=== PATIENT | male | born 1955 | race Caucasian/White ===

== ENCOUNTER 2018-07-31 20:03 | Inpatient (IN) | payer OTHER ==
[2018-07-31] MEDS ORDERED: SODIUM CHLORIDE 0.9% 500 ML INFUS.BAG IV ONE (20:43)
--- NOTE | 2018-07-31 21:32 | PDOC ---
History of Present Illness - General Chief Complaint: Weakness Stated Complaint: LEG PAIN Time Seen by Provider: 07/31/18 20:21 History Source: Patient Exam Limitations: No Limitations - History of Present Illness Initial Comments: 07/31/18 20:44 63YOM with h/o CAD with WA and stent placement (one month ago at [facility]), ?h/o CHF, also h/o HTN, HLD, A-fib s/p ablation, who p/w 2 months of L>R calf pain significantly worse in the past 3 days, as well as 2 days of significant fatigue on exertion and now with left lateral bodily pain from his hip to his shoulder. He has had mild BLE swelling similar to prior episodes. EMS noted that his blood pressure was soft on the way to the ED. The patient himself denies any SOB, f/c/n/v/d/c, palpitations, back pain, neck pain, HALL, or other symptoms. He states he is compliant with all his medications except possibly his digoxin for the past two days. He takes Xarelto, Plavix, ASA, isosorbide, metoprolol, tamsulosin, finasteride, and digoxin among several other less concerning medications. Past History - Past Medical History Allergies/Adverse Reactions: Allergies Allergy/AdvReac Type Severity Reaction Status Date / Time Penicillins Allergy Verified 07/31/18 20:29 Cardiac Disorders: Yes COPD: No HTN: Yes - Surgical History Cardiac Surgery: Yes (Stent) - Suicide/Smoking/Psychosocial Hx Smoking History: Never smoked Have you smoked in the past 12 months: No Information on smoking cessation initiated: No Hx Alcohol Use: No Drug/Substance Use Hx: No Review of Systems - Review of Systems Able to Perform ROS?: Yes Comments:: 07/31/18 22:00 GEN: generalized weakness, no fever, chills, or malaise HEENT: no ear pain, sore throat, vision change, or eye pain CV: left chest pain discomfort, edema, no palpitations, lightheadedness, or syncope RESP: no cough, wheezing, or SOB GI: no abdominal pain, nausea, vomiting, diarrhea, constipation, or white/black/ bloody stool : no dysuria, hematuria, incontinence, retention, bleeding, or discharge MSK: left neck pain, left>right calf pain, no back pain or joint swelling/pain NEURO: no headache, seizure, vertigo, numbness, tingling, or focal weakness PSYCH: no substance use, no behavior change SKIN: no jaundice, no rash ROS otherwise negative except as noted in HPI *Physical Exam - Vital Signs Last Vital Signs Temp Pulse Resp BP Pulse Ox 99.1 F 50 L 27 H 84/49 L 100 07/31/18 20:33 07/31/18 20:33 07/31/18 20:33 07/31/18 20:33 07/31/18 20:33 - Physical Exam Comments: 07/31/18 22:21 GENERAL: a bit pale but nontoxic-appearing, A/Ox4, no distress, answers questions appropriately, appears tired HEENT: s bit dry mucous membranes, PERRLA, EOMI NECK/BACK: no midline ttp, no spinal stepoff or deformity, no hematoma, full ROM , neck supple CARDIOVASCULAR: distant heart sounds and bradycardic but regular rate/rhythm, normal S1S2, no MGR, strong peripheral pulses, capillary refill <2 seconds, extremities wwp, 1+ pitting edema BLE LUNGS/RESPIRATORY: no respiratory distress, CTAB GI/ABDOMEN: symmetric [id number], normoactive BS, soft, no ttp, no midline pulsatile masses : no CVA tenderness EXTREMITIES: no muscle atrophy, no acute deformity, no calf tenderness, no palpable cord, calves symmetric SKIN: pale, warm and dry, no pallor, no jaundice, no rash, no bruising, no skin breakdown, no cuts, no lesions NEUROLOGICAL: GCS 15, CN II-XII grossly intact, 5/5 strength proximally and distally, no facial droop Procedures - Bedside Ultrasound Remarks: EXAM: Bedside echo INDICATION: 1 mo s/p WA, chest pain, hypotension FINDINGS: severe LVH, no valve abnormality, no pericardial effusion CONCLUSION: severe LVH without tamponade physiology Heart Score/ECG Review - History History: Moderately suspicious - Electrocardiogram EKG: Significant ST-depression - Age Age: 45-65 - Risk Factors Risk Factors Heart Score: Yes Hx Hypercholesterolemia, Yes Hx Hypertension, Yes Positive family hx of cardiac disease Based on the list above the patient has:: >/=3 risk factors or Hx atherosclerotic disease #1 07/31/18 21:19 Sinus rhythm, rate 54, normal axis and slightly widened QRS but otherwise normal intervals, 1 box AVNI in aVR and <1 box AVNI in V1, STD in I, II, III, aVF , and [id number], TWI in aVL, +LVH pattern, no prior EKGs available for comparison ED Treatment Course - LABORATORY CBC & Chemistry Diagram: 07/31/18 21:45 07/31/18 21:45 - RADIOLOGY Radiology Studies Ordered: Category Date Time Status CHEST X-RAY PORTABLE* [RAD] Stat Radiology 07/31/18 20:43 Ordered Medical Decision Making - Medical Decision Making 63YOM with extensive CAD hx with WA&PCI a month ago p/w LLE>RLE calf pain, left trunk pain, low BP. Initial Vital Signs Temp Pulse Resp BP Pulse Ox 99.1 F 50 L 27 H 84/49 L 100 07/31/18 20:33 07/31/18 20:33 07/31/18 20:33 07/31/18 20:33 07/31/18 20:33 Repeat RR is 22 at the time of my examination. Repeat BP is 89/54 at the time of my examination. Exam: As noted in Physical Exam section. DDX IBNLT: ACS, ventricular aneurysm, pericarditis (i.e. Elan syndrome), tamponade, aortic dissection, septal rupture, papillary muscle rupture and MR and pulmonary edema, also with the calf pain this is likely claudication from PVD worsened by hypotension/soft pressures, less likely DVT although this is still a possibility. Very unlikely ventricular wall rupture as the patient would likely be much less stable than he is currently, unlikely AAA, PTX, PE ( not hypoxic), esophageal tear, esophagitis (e.g. pill, infectious), esophageal stricture, esophageal FB, gastritis, PUD, pancreatitis, cholecystitis, cholangitis, colitis, bowel perforation, PNA/bronchitis, pleurisy, pleuritis, MVP, pulmonary HTN, musculoskeletal, panic/anxiety, etc. W/U ordered: CBCD CMP Mg Phos Lipase Troponin CK CKMB Coags T&S Blood gas UA UCx EKG CXR. TX ordered: monitor, ASA 324, O2 via NC if needed, 500 cc NS as patient is hypotensive, no crackles or SOB. EKG: Reviewed; results as noted in ECG Review section. 07/31/18 21:39 I spoke with [facility] ED rep Coral, Pt had cath on 07/01/18, for NSTEMI, JAMILA placed successfully. Old EKG sent from [facility] (most recent 07/04/18) from 3 days after his successful PCI. 07/04/18 EKG shows 2-3 box AVNI in aVF, V1, and V2, marked STD in II and V456 also smaller STD in I, III, and V3. Interestingly the 07/04/18 EKG looks worse than today's EKG. CXR: Mild vascular congestion, enlarged cardiomediastinal silhouette, no focal consolidation Laboratory Tests 07/31/18 07/31/18 07/31/18 21:45 21:45 21:45 WBC 7.7 RBC 3.55 L Hgb 10.1 L Hct 31.1 L MCV 87.7 MCH 28.6 MCHC 32.6 RDW 17.8 H Plt Count 184 MPV 9.2 Absolute Neuts (auto) 5.4 Neutrophils % 70.2 Lymphocytes % 15.5 Monocytes % 11.1 H Eosinophils % 2.5 Basophils % 0.7 Nucleated RBC % 0 PT with INR 17.90 H INR 1.51 H Sodium 136 Potassium 3.9 Chloride 103 Carbon Dioxide 23 Anion Gap 10 BUN 66 H Creatinine 3.2 H Est GFR (CKD-EPI)AfAm 22.49 Est GFR (CKD-EPI)NonAf 19.41 Random Glucose 85 Calcium 8.5 Phosphorus 5.9 H Magnesium 2.3 Total Bilirubin 0.3 AST 26 ALT 21 Alkaline Phosphatase 95 Creatine Kinase 212 Troponin I 0.21 H B-Natriuretic Peptide 3807.0 H Total Protein 6.8 Albumin 3.3 L Blood Type Antibody Screen 07/31/18 21:45 WBC RBC Hgb Hct MCV MCH MCHC RDW Plt Count MPV Absolute Neuts (auto) Neutrophils % Lymphocytes % Monocytes % Eosinophils % Basophils % Nucleated RBC % PT with INR INR Sodium Potassium Chloride Carbon Dioxide Anion Gap BUN Creatinine Est GFR (CKD-EPI)AfAm Est GFR (CKD-EPI)NonAf Random Glucose Calcium Phosphorus Magnesium Total Bilirubin AST ALT Alkaline Phosphatase Creatine Kinase Troponin I B-Natriuretic Peptide Total Protein Albumin Blood Type Cancelled Antibody Screen Cancelled Reassessment: Patient states feeling the same, no pain at this time. ADMIT Repeat cardiac enzymes ordered, drawn, sent. HEART score indicates Pt is higher risk and should be managed in hospital with cardiology consult. The Pt is unsafe for discharge at this time. They require further hospital observation, workup, and treatment. Microblog sent to [facility] for admission. Blank Decision to Admit order is placed per ED protocol. *DC/Admit/Observation/Transfer Diagnosis at time of Disposition: SHANA (acute kidney injury), Elevated troponin, LVH (left ventricular hypertrophy ) Hypotension Qualifiers: Hypotension type: unspecified hypotension type Qualified Code(s): I95.9 - Hypotension, unspecified - Discharge Dispostion Condition at time of disposition: Guarded Decision to Admit order: Yes - Referrals - Patient Instructions - Post Discharge Activity
[2018-07-31] MEDS ORDERED: ASPIRIN 81 MG CHEWABLE TABLETS PO ONE (21:33)
[2018-07-31] MEDS ORDERED: ASPIRIN 81 MG CHEWABLE TABLETS ONE (21:39)
[2018-07-31 22:06] LABS: BASO % 0.7 % (0-2.0); EOS % 2.5 % (0-4.5); HEMATOCRIT 31.1 % (35.4-49); HEMOGLOBIN 10.1 GM/dL (11.7-16.9); LYMPH % 15.5 % (8-40); MCH 28.6 pg (25.7-33.7); MCHC 32.6 g/dl (32.0-35.9); MEAN CELL VOLUME 87.7 fl (80-96); MEAN PLT VOLUME 9.2 fl (7.5-11.1); MONO % 11.1 % (3.8-10.2); NEUT % 70.2 % (42.8-82.8); PLATELET COUNT 184 K/MM3 (134-434); RBC 3.55 M/mm3 (4.00-5.60); RDW 17.8 % (11.9-15.9); WHITE BLOOD COUNT 7.7 K/mm3 (4.0-10.0)
[2018-07-31 22:16] LABS: INR 1.51 (0.83-1.09); PROTHROMBIN TIME (PATIENT) 17.9 SEC (9.7-13.0)
[2018-07-31 22:41] LABS: ALBUMIN 3.3 g/dl (3.4-5.0); BILIRUBIN,TOTAL 0.3 mg/dL (0.2-1); CALCIUM 8.5 mg/dL (8.5-10.1); CREATININE 3.2 mg/dL (0.55-1.3); MAGNESIUM 2.3 mg/dL (1.8-2.4); PHOSPHOROUS 5.9 mg/dL (2.5-4.9); POTASSIUM 3.9 mmol/L (3.5-5.1); TOT PROT 6.8 g/dl (6.4-8.2)
[2018-07-31] MEDS ORDERED: ACETAMINOPHEN 1000 MG/100 ML VIAL (NON FORMULARY) IVPB ONE (22:53)
[2018-07-31] MEDS ORDERED: ACETAMINOPHEN INJECTION 100 ML IVPB ONE (23:16)
--- NOTE | 2018-07-31 23:35 | PDOC ---
Documentation entered by Cassie Sotelo SCRIBE, acting as scribe for Janelle Trinh MD. Janelle Trinh MD: This documentation has been prepared by the kandiibe, Cassie Sotelo SCRIBE, under my direction and personally reviewed by me in its entirety. I confirm that the documentation accurately reflects all work, treatment, procedures, and medical decision making performed by me. Attending Attestation - Resident Resident Name: Apoorva Lowry - ED Attending Attestation I have performed the following: I have examined & evaluated the patient, The case was reviewed & discussed with the resident, I agree w/resident's findings & plan, Exceptions are as noted - HPI HPI: 07/31/18 21:03 The patient is a 63-year-old male with a past medical history significant for CAD, IL (a month ago, treated at [facility], on Xarelto and baby ASA), s/ p PCI and stent (?), presents to the emergency department with bilateral leg pain and increased fatigue. The patient presents with 2 months of bilateral leg pain, left greater than right. The patient reports the pain has worsened in the last couple of day, associated with swelling. The patient also states hes been having 2 days of increased fatigue, worse with exertion. The patient reports additional complain of left-sided chest and shoulder pain. Denies fever or chills. The patient is a poor historian. Allergies: Penicillins Social history: The patient reports hes currently living in a detention, [place]. The patient reports he gets his medication from the clinic. Former smoker. Non-domicile. - Physicial Exam PE: 07/31/18 22:08 GENERAL: Well developed, well nourished. Awake and alert. No acute distress. HEENT: Normocephalic, atraumatic. PERRLA, EOMI. No conjunctival pallor. Sclera are non- icteric. Moist mucous membranes. Oropharynx is clear. NECK: Supple. Full ROM. No JVD. Carotid pulses 2+ and symmetric, without bruits. CARDIOVASCULAR: Initial BP reading to the 80s systolically. Regular rate and rhythm. No murmurs, rubs, or gallops. Distal pulses are 2+ and symmetric. PULMONARY: No evidence of respiratory distress. Lungs clear to auscultation bilaterally. No wheezing, rales or rhonchi. ABDOMINAL: +well healed sternotomy incision. Soft. Non-tender. Non-distended. No rebound or guarding. Normoactive bowel sounds. MUSCULOSKELETAL Normal range of motion at all joints. No bony deformities or tenderness. No CVA tenderness. EXTREMITIES: No pitting edema. Moving all extremity. No cyanosis. No clubbing. No edema. No calf tenderness. SKIN: Warm and dry. Normal capillary refill. No rashes. No jaundice. NEUROLOGICAL: Alert, awake, appropriate. Cranial nerves 2-12 intact. - Medical Decision Making 07/31/18 21:40 Call placed to [facility] Case discussed with Dr. Moncada (ER Physician) 07/31/18 22:26 63-year-old male presents with left-sided chest pain and also left sided leg pain Significant past medical history of coronary artery disease, hypertension, IL, LV dysfunction He states that he had a IL within the last month and was seen recently at [facility]. Meds : dig 0.125 mEq daily, Plavix 75 mg daily, losartan 50 mg daily, isosorbide 30 mg daily, Xarelto 15 mg daily,metoprolol 100mg BID,atorvastatin 80mg po,ASA 81mg PSH CABG Social histroy: quit tobacco >20 yrs ago,non domiciled, 07/31/18 22:35 07/31/18 22:36 IMP ACS,r/o IL plan admitted to telemetry 07/31/18 22:53 Call placed to [facility] Case discussed with Dr. Moncada Patient's Cr level at the hospital has been: lowest .82 and highest 1.15. 07/31/18 23:26 repeat BP = 116/60 p=59 Today's labs : ARF with creatinine >3 and bun>60. First troponin =0.21 08/01/18 00:44 second troponin =0.17 and the repeat creatinine= 3
[2018-08-01 00:25] LABS: CREATININE 3.1 mg/dL (0.55-1.3)
--- NOTE | 2018-08-01 00:54 | HP ---
CHIEF COMPLAINT: leg pain PCP: through the [facility] HISTORY OF PRESENT ILLNESS: Patient is a 63 y/o male with a history of CAD with PA ( 1 month ago at [facility] ), 17 stents, HTN, HLD, afib, aortic anyeurysm, and depression who presents for bilateral leg pain. Patient reports he has been having this pain for a long time. He has pain with walking that is the worst in his calfs and he describes it as a squeezing. It is worse with walking. he reports he has had ultrasounds in the past and was told " he doesn't have a clot. Patient reports right as he was getting to the Emergency department he had chest tightness that lasted about three minutes. He has not felt this since his NSTEMI at [facility] one month ago. At that time a drug eluting stent was placed. Patient states he has never had problems with his kidney's before. Patient was at [facility] last night for the same leg pain, was told it was cramping so he came here after discharge. Patient states he received toradol while at the hospital. With him patient has over 20 different bottles of medication. he reports he takes all of them and in the right amount but upon further questioning he does not understand them all and has multiple bottles of the same medication. Patient quit smoking 30 years ago. He lives out of a nursing home and the [facility] helps him move to different locations. He reports he has had a 4cmm AA for a "long time" and was told it is okay. Patient has a little pain in his back which he said was in the middle of his spine. Patient denies fevers, chills, nausea, current chest pain, and shortness of breath. ER course was notable for: (1)asa 324, 500 NS (2) (3) Recent Travel: denies PAST MEDICAL HISTORY: CAD with PA ( 1 month ago at [facility]), 17 stents, HTN, HLD, afib, aortic anyeurysm, and depression PAST SURGICAL HISTORY: CABG 7 years ago with 17 stents placed, 7 before the CABG and 8 after, all at multiple hospital locations Social History: Smoking: quit 30 years ago Alcohol: denies Drugs: denies Family History: Allergies Penicillins Allergy (Verified 07/31/18 20:29) HOME MEDICATIONS: REVIEW OF SYSTEMS positive: chest tightness, leg cramping denies: nausea, vomiting, shortness of breath, diarrhea, PHYSICAL EXAMINATION Vital Signs - 24 hr 07/31/18 07/31/18 20:33 23:48 Temperature 99.1 F Pulse Rate 50 L Pulse Rate [ 58 L Right] Respiratory 27 H 17 Rate Blood Pressure 84/49 L Blood Pressure 116/60 [Right] O2 Sat by Pulse 100 97 Oximetry (%) GENERAL: Awake, alert, and fully oriented, in no acute distress. HEAD: Normal with no signs of trauma. EYES: Pupils equal, round and reactive to light, extraocular movements intact EARS, NOSE, THROAT: Moist mucous membranes. LUNGS: Breath sounds equal, clear to auscultation bilaterally. No wheezes, and no crackles. No accessory muscle use. HEART: Regular rate and rhythm, normal S1 and S2 without murmur, rub or gallop. substernal scar ABDOMEN: Soft, nontender, not distendedNo hepatomegaly or splenomegaly. LOWER EXTREMITIES: 2+ pulses, warm, well-perfused. pain to squeezing of calfs SKIN: Warm, dry, normal turgor, no rashes or lesions noted, normal capillary refill. CBCD WBC 7.7 K/mm3 (4.0-10.0) 07/31/18 21:45 RBC 3.55 M/mm3 (4.00-5.60) L 07/31/18 21:45 Hgb 10.1 GM/dL (11.7-16.9) L 07/31/18 21:45 Hct 31.1 % (35.4-49) L 07/31/18 21:45 MCV 87.7 fl (80-96) 07/31/18 21:45 MCHC 32.6 g/dl (32.0-35.9) 07/31/18 21:45 RDW 17.8 % (11.9-15.9) H 07/31/18 21:45 Plt Count 184 K/MM3 (134-434) 07/31/18 21:45 MPV 9.2 fl (7.5-11.1) 07/31/18 21:45 CMP Sodium 136 mmol/L (136-145) 07/31/18 21:45 Potassium 3.9 mmol/L (3.5-5.1) 07/31/18 21:45 Chloride 103 mmol/L (98-107) 07/31/18 21:45 Carbon Dioxide 23 mmol/L (21-32) 07/31/18 21:45 Anion Gap 10 MMOL/L (8-16) 07/31/18 21:45 BUN 66 mg/dL (7-18) H 07/31/18 21:45 Creatinine 3.1 mg/dL (0.55-1.3) H 07/31/18 23:45 Calcium 8.5 mg/dL (8.5-10.1) 07/31/18 21:45 Total Bilirubin 0.3 mg/dL (0.2-1) 07/31/18 21:45 AST 26 U/L (15-37) 07/31/18 21:45 ALT 21 U/L (13-61) 07/31/18 21:45 Alkaline Phosphatase 95 U/L (45-117) 07/31/18 21:45 Total Protein 6.8 g/dl (6.4-8.2) 07/31/18 21:45 Albumin 3.3 g/dl (3.4-5.0) L 07/31/18 21:45 ASSESSMENT/PLAN: Patient is a 63 y/o male with a history of CAD with PA ( 1 month ago at [facility] ), 17 stents, HTN, HLD, afib, aortic anyeurysm, and depression who presents for bilateral leg pain. #SHANA - likely 2/2 to recent toradol use - continue fluids - f/u with urine studies - f/u renal US - f/u with [facility] tomorrow for Cr baseline yesterday #B/L lower extremity leg pain - continue Gabapentin - could be 2/2 to claudication patient with long hx of vascular disease - dopplers can be done as an outpatient - continue tylenol as needed for pain #CAD, with 17 stent hx - most recent stent 1 month ago - continue xarelto, clopidogrel, atorvastatin, and aspirin - EKG with ST depression and t wave inversion, no change from EKG's from redding - f/u echo, bedside ED echo with LVH - with tropinemia, could be elevated in setting of SHANA, .21> .17 f/u third trop - CXR shows cardiomegaly #afib - continue digoxin, f/u dig level - continue dronederone - normal sinus rhythm on ekg #BPH - continue finasteride and tamsulosin #HTN - hold losartan with SHANA hx - continue metoprolol - hypotension on admission, responded to 500 ml bolus #depression - continue escitalopram #GERD - continue pantoprazole #DVT ppx - heparin TID FEN - ns @ 100 - low sodium/diabetic diet Dispo: monitor on tele - patients meds inputed as found in bag, would highly suggest reconciling them with pharmacy and discussing polypharmacy - f/u with [facility] tomorrow for further info about patient and recent hospitalizations Visit type - Emergency Visit Emergency Visit: Yes ED Registration Date: 07/31/18 Care time: The patient presented to the Emergency Department on the above date and was hospitalized for further evaluation of their emergent condition. - New Patient This patient is new to me today: Yes Date on this admission: 08/01/18 - Critical Care Critical Care patient: No
--- NOTE | 2018-08-01 01:40 | PN ---
Teaching Attending Note Name of Resident: Aria Kaur ATTENDING PHYSICIAN STATEMENT I saw and evaluated the patient. I reviewed the resident's note and discussed the case with the resident. I agree with the resident's findings and plan as documented. SUBJECTIVE: This is a 63 year old man with a history of CAD, FL, stents, HTN, hyperlipidemia, atrial fib, aortic aneurysm, depression who comes to the ED complaining of pain in his legs. The pain occurs while walking and at rest. It is in both calves but also in his upper left leg and above his left hip. Last night, he went to the ED at [facility] where he says he was told it was cramps, given Toradol with another medication, and discharged home. When he arrived in the ED today, he reported having chest tightness for about 3 minutes. OBJECTIVE: Vital Signs Period Temp Pulse Resp BP Sys/Plummer Pulse Ox Last 24 Hr 99.1 F 50-58 17-27 84-116/49-60 97-100 HEART: S1S2, RRR LUNGS: Clear ABDOMEN: Obese, soft, non-tender, non-distended, normal BS EXTREMITIES: No calf tenderness, no edema Laboratory Tests 07/31/18 07/31/18 07/31/18 21:45 21:45 21:45 WBC 7.7 RBC 3.55 L Hgb 10.1 L Hct 31.1 L MCV 87.7 MCH 28.6 MCHC 32.6 RDW 17.8 H Plt Count 184 MPV 9.2 Absolute Neuts (auto) 5.4 Neutrophils % 70.2 Lymphocytes % 15.5 Monocytes % 11.1 H Eosinophils % 2.5 Basophils % 0.7 Nucleated RBC % 0 PT with INR 17.90 H INR 1.51 H Sodium 136 Potassium 3.9 Chloride 103 Carbon Dioxide 23 Anion Gap 10 BUN 66 H Creatinine 3.2 H Est GFR (CKD-EPI)AfAm 22.49 Est GFR (CKD-EPI)NonAf 19.41 Random Glucose 85 Calcium 8.5 Phosphorus 5.9 H Magnesium 2.3 Total Bilirubin 0.3 AST 26 ALT 21 Alkaline Phosphatase 95 Creatine Kinase 212 Creatine Kinase Index 2.0 CK-MB (CK-2) 4.4 H Troponin I 0.21 H B-Natriuretic Peptide 3807.0 H Total Protein 6.8 Albumin 3.3 L Blood Type Antibody Screen 07/31/18 07/31/18 21:45 23:45 WBC RBC Hgb Hct MCV MCH MCHC RDW Plt Count MPV Absolute Neuts (auto) Neutrophils % Lymphocytes % Monocytes % Eosinophils % Basophils % Nucleated RBC % PT with INR INR Sodium Potassium Chloride Carbon Dioxide Anion Gap BUN Creatinine 3.1 H Est GFR (CKD-EPI)AfAm Est GFR (CKD-EPI)NonAf Random Glucose Calcium Phosphorus Magnesium Total Bilirubin AST ALT Alkaline Phosphatase Creatine Kinase Creatine Kinase Index CK-MB (CK-2) Troponin I 0.17 H B-Natriuretic Peptide Total Protein Albumin Blood Type Cancelled Antibody Screen Cancelled Home Medications Medication Instructions Recorded Aspirin 81 mg PO DAILY 08/01/18 Atorvastatin Ca [Lipitor] 80 mg PO DAILY 08/01/18 Clopidogrel Bisulfate [Clopidogrel] 75 mg PO DAILY 08/01/18 Digoxin 0.125 mg PO DAILY 08/01/18 Dronedarone HCl [Multaq -] 400 mg PO BID 08/01/18 Escitalopram Oxalate [Lexapro -] 20 mg PO DAILY 08/01/18 Finasteride 5 mg PO DAILY 08/01/18 Gabapentin 400 mg PO TID 08/01/18 Isosorbide Mononitrate [Isosorbide 30 mg PO DAILY 08/01/18 Mononitrate ER] Losartan Potassium 50 mg PO DAILY 08/01/18 Metoprolol Tartrate 100 mg PO BID 08/01/18 Pantoprazole Sodium [Protonix] 40 mg PO DAILY 08/01/18 Ranolazine [Ranexa] 500 mg PO DAILY 08/01/18 Rivaroxaban [Xarelto] 15 mg PO DAILY 08/01/18 Tamsulosin HCl [Flomax] 0.4 mg PO DAILY 08/01/18 ASSESSMENT AND PLAN: This is a 63 year old man with a history of CAD, FL, stents, HTN, hyperlipidemia , atrial fib, aortic aneurysm, depression who presented to the ED with pain in his legs. 1. Acute kidney injury - As per ED, patient had creatinine of 1.1 at [facility] (unsure of date) - Patient reports he was given Toradol at [facility] last night - Hold Cozaar - Renal US - Obtain records from [facility] 2. Bilateral leg pain - Possible vascular etiology vs muscular (cramping) - If needed, can do vascular workup as outpatient 3. Anemia - Likely secondary to chronic illness - Monitor hemoglobin - Check iron studies 4. CAD, history of FL, stents - Most recent stent (JAMILA) done 07/01 - Continue aspirin, Plavix, Lopressor, Lipitor, Imdur, Ranexa 5. HTN - Continue lisinopril, Lopressor - Hold Cozaar secondary to SHANA 6. Hyperlipidemia - Continue Lipitor 7. History of atrial fibrillation - Currently in [facility] - Continue Digoxin, Multaq, Lopresor, Xarelto 8. Aortic aneurysm 9. Depression - Continue Lexapro 10. Obesity with BMI 35.4
[2018-08-01 03:56] LABS: URINE APPEARANCE CLEAR; URINE BILIRUBIN NEGATIVE (NEGATIVE); URINE COLOR YELLOW; URINE GLUCOSE (UA) NEGATIVE (NEGATIVE); URINE KETONE NEGATIVE (NEGATIVE); URINE LEUK ESTERASE NEGATIVE (NEGATIVE); URINE NITRITE NEGATIVE (NEGATIVE); URINE PROTEIN NEGATIVE (NEGATIVE); URINE UROBILINOGEN 0.2 mg/dL (0.2-1.0)
[2018-08-01] MEDS: SODIUM CHLORIDE 1,000 ML IV SCH (04:44)
[2018-08-01] MEDS ORDERED: HEPARIN NA (PORCINE) 5,000 UNITS/ML 1ML VIAL ONE ×2 (07:04→14:13)
[2018-08-01] MEDS ORDERED: GABAPENTIN 100 MG CAPSULE (FP) ONE ×2 (07:04→14:13)
[2018-08-01] MEDS: GABAPENTIN 400 MG CAPSULE (FP) PO SCH ×3 (07:09→21:54)
[2018-08-01] MEDS: HEPARIN NA (PORCINE) 5,000 UNITS/ML 1ML VIAL SQ SCH ×3 (07:09→21:54)
[2018-08-01 07:42] LABS: BILIRUBIN,TOTAL 0.3 mg/dL (0.2-1); CALCIUM 8.3 mg/dL (8.5-10.1); CREATININE 2.7 mg/dL (0.55-1.3); MAGNESIUM 2.4 mg/dL (1.8-2.4); PHOSPHOROUS 5.2 mg/dL (2.5-4.9); POTASSIUM 3.4 mmol/L (3.5-5.1); TOT PROT 6.2 g/dl (6.4-8.2)
[2018-08-01] MEDS ORDERED: POTASSIUM CHLORIDE TABS 10 MEQ TABLET.ER (FP) PO ONE (07:48)
[2018-08-01 08:23] LABS: BASO % 0.6 % (0-2.0); EOS % 5.2 % (0-4.5); HEMATOCRIT 31.3 % (35.4-49); LYMPH % 19.9 % (8-40); MCH 28.4 pg (25.7-33.7); MEAN CELL VOLUME 88.6 fl (80-96); MEAN PLT VOLUME 9.6 fl (7.5-11.1); MONO % 12.5 % (3.8-10.2); NEUT % 61.8 % (42.8-82.8); PLATELET COUNT 157 K/MM3 (134-434); RBC 3.53 M/mm3 (4.00-5.60); RDW 17.8 % (11.9-15.9); WHITE BLOOD COUNT 6.1 K/mm3 (4.0-10.0)
[2018-08-01] MEDS ORDERED: TAMSULOSIN HCL 0.4 MG CAP ONE (09:09)
[2018-08-01] MEDS ORDERED: POTASSIUM CHLORIDE TABS 20 MEQ TABLET.ER (FP) PO ONE (09:09)
[2018-08-01] MEDS: TAMSULOSIN HCL 0.4 MG CAP PO SCH (09:12)
[2018-08-01] MEDS ORDERED: RANOLAZINE E.R. 500 MG TABLET (FP) PO SCH (10:00)
[2018-08-01] MEDS ORDERED: METOPROLOL TARTRATE 50 MG TABLET (FP) ONE (10:15)
[2018-08-01] MEDS ORDERED: ASPIRIN 81 MG CHEWABLE TABLETS ONE (10:15)
[2018-08-01] MEDS ORDERED: DIGOXIN 0.125 MG TABLET (FP) ONE (10:15)
[2018-08-01] MEDS ORDERED: PANTOPRAZOLE 40 MG TABLET (FP) ONE (10:15)
[2018-08-01] MEDS ORDERED: ISOSORBIDE MONONITRATE 60 MG TAB.SR.24H (FP) PO ONE (10:16)
[2018-08-01] MEDS ORDERED: CLOPIDOGREL BISULFATE 75 MG TABLET (FP) ONE (10:16)
[2018-08-01] MEDS ORDERED: ESCITALOPRAM OXALATE 10 MG TABLET (FP) ONE (10:16)
[2018-08-01] MEDS: DIGOXIN 0.125 MG TABLET (FP) PO SCH (10:30)
[2018-08-01] MEDS: ESCITALOPRAM OXALATE 20 MG TABLET (FP) PO SCH (10:36)
[2018-08-01] MEDS: ASPIRIN 81 MG CHEWABLE TABLETS PO SCH (10:36)
[2018-08-01] MEDS: ISOSORBIDE MONONITRATE 30 MG TAB.SR.24H (FP) PO SCH (10:36)
[2018-08-01] MEDS: METOPROLOL TARTRATE 50 MG TABLET (FP) PO SCH ×2 (10:36→21:54)
[2018-08-01] MEDS: CLOPIDOGREL BISULFATE 75 MG TABLET (FP) PO SCH (10:36)
[2018-08-01] MEDS: PANTOPRAZOLE 40 MG TABLET (FP) PO SCH (10:37)
--- NOTE | 2018-08-01 11:22 | EKG ---
Test Reason : Blood Pressure : / mmHG Vent. Rate : 054 BPM Atrial Rate : 054 BPM P-R Int : 168 ms QRS Dur : 124 ms QT Int : 506 ms P-R-T Axes : 075 020 252 degrees QTc Int : 479 ms SINUS BRADYCARDIA WITH PREMATURE ATRIAL COMPLEXES RSR' OR QR PATTERN IN V1 SUGGESTS RIGHT VENTRICULAR CONDUCTION DELAY LEFT VENTRICULAR HYPERTROPHY WITH QRS WIDENING AND REPOLARIZATION ABNORMALITY ABNORMAL ECG NO PREVIOUS ECGS AVAILABLE Confirmed by SHELBI ROMAN, VALENTINA ([id number]) on 08/01/2018 11:22:12 AM Referred By: Confirmed By:VALENTINA MARIO MD
--- NOTE | 2018-08-01 11:24 | EKG ---
Test Reason : Blood Pressure : / mmHG Vent. Rate : 056 BPM Atrial Rate : 056 BPM P-R Int : 168 ms QRS Dur : 126 ms QT Int : 488 ms P-R-T Axes : 088 055 251 degrees QTc Int : 470 ms SINUS BRADYCARDIA WITH SINUS ARRHYTHMIA LEFT VENTRICULAR HYPERTROPHY WITH QRS WIDENING AND REPOLARIZATION ABNORMALITY ABNORMAL ECG WHEN COMPARED WITH ECG OF 31-JUL-2018 21:19, PREMATURE ATRIAL COMPLEXES ARE NO LONGER PRESENT Confirmed by VALENTINA MARIO MD ([id number]) on 08/01/2018 11:24:14 AM Referred By: Confirmed By:VALENTINA MARIO MD
[2018-08-01] MEDS: DRONEDARONE HCL 400 MG TAB (FP) PO SCH (12:15)
[2018-08-01] MEDS: FINASTERIDE 5 MG TABLET (FP) PO SCH (12:15)
--- NOTE | 2018-08-01 12:22 | ECHO ---
Name: LINNETTE RUIZ Exam:Adult Echocardiogram Study Date: 08/01/2018 08:07 AM Age: 63 yrs Reason For Study: positive ekg Height: 69 in Weight: 240 lb BSA: 2.2 m2 MMode/2D Measurements & Calculations IVSd: 1.2 cm Ao root diam: 3.0 cm LVIDd: 4.5 cm LA dimension: 4.1 cm LVIDs: 2.5 cm LVPWd: 1.2 cm EDV(Teich): 94.7 ml LVOT diam: 2.0 cm ESV(Teich): 22.4 ml LAV (MOD-bp): 90.4 ml Doppler Measurements & Calculations MV E max pa: 116.0 cm/sec Ao V2 max: 196.8 cm/sec MV A max pa: 41.6 cm/sec Ao max P.5 mmHg MV E/A: 2.8 MV dec time: 0.23 sec JOVAN(V,D): 2.8 cm2 LV V1 max P.5 mmHg MR max pa: 434.8 cm/sec LV V1 max: 176.9 cm/sec MR max P.6 mmHg TR max pa: 365.4 cm/sec PA V2 max: 108.6 cm/sec TR max P.6 mmHg PA max P.7 mmHg Med Peak E' Pa: 4.5 cm/sec PI Vmax: 180.5 cm/sec Med E/e': 26.0 Lat Peak E' Pa: 3.8 cm/sec Lat E/e': 30.5 Procedure A complete two-dimensional transthoracic echocardiogram was performed (2D, M-mode, Doppler and color flow Doppler). Left Ventricle The left ventricle is normal in size. There is mild concentric left ventricular hypertrophy. Left nimesh tricular systolic function is normal. Ejection Fraction = 65-70%. Diastolic dysfunction, Grade II, consistent with elevated left atrial pressure. No regional wall motion abnormalities noted. Right Ventricle The right ventricle is normal size. The right ventricular systolic function is normal. Atria The left atrium is mildly dilated. LA volume index is 40 ml/m2. Right atrial size is normal. Mitral Valve There is mild mitral annular calcification. There is mild mitral regurgitation. Tricuspid Valve The tricuspid valve is normal in structure and function. There is moderate tricuspid regurgitation. P ulmonary artery systolic pressure is at least 60 mmHg assuming RA pressure of 3 mmHg. Aortic Valve The aortic valve is normal in structure and function. No aortic regurgitation is present. Pulmonic Valve The pulmonic valve is not well visualized. Mild pulmonic valvular regurgitation. Great Vessels The aortic root is normal size. Pericardium/Pleura There is no pericardial effusion. Interpretation Summary The left ventricle is normal in size. There is mild concentric left ventricular hypertrophy. Left ventricular systolic function is normal. No regional wall motion abnormalities noted. Ejection Fraction = 65-70%. Diastolic dysfunction, Grade II, consistent with elevated left atrial pressure. The right ventricular systolic function is normal. The left atrium is mildly dilated. Right atrial size is normal. There is mild mitral annular calcification. There is mild mitral regurgitation. There is moderate tricuspid regurgitation. Pulmonary artery systolic pressure is at least 60 mmHg assuming RA pressure of 3 mmHg Mild pulmonic valvular regurgitation. There is no pericardial effusion. Previous study is not available for comparison Francesco Gonzalez MD 08/01/2018 12:21 PM
--- NOTE | 2018-08-01 13:34 | CON.CARD ---
Consult Consult Specialty:: Cardiology - History of Present Illness History of Present Illness: SUBJECTIVE: This is a 63 year old man with a history of CAD, DE, stents, HTN, hyperlipidemia, atrial fib, aortic aneurysm, depression who comes to the ED complaining of pain in his legs. The pain occurs while walking and at rest. It is in both calves but also in his upper left leg and above his left hip. Last night, he went to the ED at [facility] where he says he was told it was cramps, given Toradol with another medication, and discharged home. When he arrived in the ED today, he reported having chest tightness for about 3 minutes. past medical history significant for CAD, DE (a month ago, treated at [facility], on Xarelto and baby ASA), s/p PCI and stent (?), presents to the emergency department with bilateral leg pain and increased fatigue. The patient presents with 2 months of bilateral leg pain, left greater than right. The patient reports the pain has worsened in the last couple of day, associated with swelling. The patient also states hes been having 2 days of increased fatigue, worse with exertion. The patient reports additional complain of left- sided chest and shoulder pain. Denies fever or chills. The patient is a poor historian. Allergies: Penicillins Social history: The patient reports hes currently living in a fci, . The patient reports he gets his medication from the clinic. Former smoker. Non-domicile. - History Source History Provided By: Patient, Medical Record - Alcohol/Substance Use Hx Alcohol Use: No - Smoking History Smoking history: Never smoked Have you smoked in the past 12 months: No Home Medications - Allergies Allergies/Adverse Reactions: Allergies Allergy/AdvReac Type Severity Reaction Status Date / Time Penicillins Allergy Verified 07/31/18 20:29 - Home Medications Home Medications: Ambulatory Orders Aspirin 81 mg PO DAILY 08/01/18 Atorvastatin Ca [Lipitor] 80 mg PO DAILY 08/01/18 Clopidogrel Bisulfate [Clopidogrel] 75 mg PO DAILY 08/01/18 Digoxin 0.125 mg PO DAILY 08/01/18 Dronedarone HCl [Multaq -] 400 mg PO BID 08/01/18 Escitalopram Oxalate [Lexapro -] 20 mg PO DAILY 08/01/18 Finasteride 5 mg PO DAILY 08/01/18 Gabapentin 400 mg PO TID 08/01/18 Isosorbide Mononitrate [Isosorbide Mononitrate ER] 30 mg PO DAILY 08/01/18 Losartan Potassium 50 mg PO DAILY 08/01/18 Metoprolol Tartrate 100 mg PO BID 08/01/18 Pantoprazole Sodium [Protonix] 40 mg PO DAILY 08/01/18 Ranolazine [Ranexa] 500 mg PO DAILY 08/01/18 Rivaroxaban [Xarelto] 15 mg PO DAILY 08/01/18 Tamsulosin HCl [Flomax] 0.4 mg PO DAILY 08/01/18 Review of Systems - Review of Systems Constitutional: reports: No Symptoms Eyes: reports: No Symptoms HENT: reports: No Symptoms Neck: reports: No Symptoms Cardiovascular: reports: No Symptoms Gastrointestinal: reports: No Symptoms Genitourinary: reports: No Symptoms Breasts: reports: No Symptoms Reported Musculoskeletal: reports: Other (leg pain) Integumentary: reports: No Symptoms Neurological: reports: No Symptoms Endocrine: reports: No Symptoms Hematology/Lymphatic: reports: No Symptoms Psychiatric: reports: No Symptoms Vital Signs: Vital Signs Temperature 97.6 F 08/01/18 05:54 Pulse Rate 66 08/01/18 10:35 Respiratory Rate 18 08/01/18 09:23 Blood Pressure 129/68 08/01/18 10:35 O2 Sat by Pulse Oximetry (%) 96 08/01/18 10:35 Constitutional: Yes: Well Nourished, No Distress, Calm Eyes: Yes: WNL, Conjunctiva Clear, EOM Intact HENT: Yes: WNL, Atraumatic, Normocephalic Neck: Yes: WNL, Supple, Trachea Midline Respiratory: Yes: WNL, Regular, CTA Bilaterally Gastrointestinal: Yes: WNL, Normal Bowel Sounds Renal/: Yes: WNL Cardiovascular: Yes: WNL, Regular Rate and Rhythm Musculoskeletal: Yes: WNL Extremities: Yes: WNL Integumentary: Yes: WNL Neurological: Yes: WNL, Alert, Oriented ...Motor Strength: WNL Psychiatric: Yes: WNL, Alert, Oriented - Other Data Labs, Other Data: CBC, BMP 08/01/18 05:50 08/01/18 05:50 INR, PTT INR 1.51 (0.83-1.09) H 06/02/19 21:45 Troponin, BNP 07/31/18 07/31/18 08/01/18 21:45 23:45 05:50 Troponin I 0.21 H 0.17 H 0.13 H B-Natriuretic Peptide 3807.0 H Troponin, BNP 07/31/18 07/31/18 08/01/18 21:45 23:45 05:50 Troponin I 0.21 H 0.17 H 0.13 H B-Natriuretic Peptide 3807.0 H Imaging - Results Chest X-ray: Image Reviewed (cm no i/e) EKG: Image Reviewed (s nicholas lvh) Assessment/Plan CAD, DE (a month ago, treated at [facility], on Xarelto and baby ASA), s /p PCI and stent (?), presents to the emergency department with bilateral leg pain and increased fatigue. CKD elevated bnp and tnis no cp echo nl ef CHF diastolic dysfunction Plan obtain records from [facility] ASA PLAVIX Xarelto bb telemetry arterial duplex to further evaluate
--- NOTE | 2018-08-01 13:43 | PN ---
Teaching Attending Note Name of Resident: Crystal Coleman ATTENDING PHYSICIAN STATEMENT I saw and evaluated the patient. I reviewed the resident's note and discussed the case with the resident. I agree with the resident's findings and plan as documented. SUBJECTIVE:continues to have leg cramps L>R. has good UOP. denies CP, SOB, fever , chills, N/V/C/D OBJECTIVE: Last Vital Signs Temp Pulse Resp BP Pulse Ox 97.6 F 66 18 129/68 96 08/01/18 05:54 08/01/18 10:35 08/01/18 09:23 08/01/18 10:35 08/01/18 10:35 General NAD CV S1 S2 RRRR no murmur/rub/gallop Lungs CTA B/L no wheezing/rales/rhonchi Abdomen soft NT/ND no suprapubic tenderness obese Extremities L calf pain but limited to just calf. no edema, good DP pulses. negative SLR, skin is NOT shiny or void of hair ASSESSMENT AND PLAN: 63 year old man with a history of CAD, [place], stents, HTN, hyperlipidemia, atrial fib, aortic aneurysm, depression who presented to the ED with pain in his legs and found to have SHANA 1. SHANA- reported to have normal Cr at baseline. possible medication induced ( received toradol at [facility]) vs dehydration. improved with hydration. check renal/bladder u/s. hold ARB. avoid nephrotoxic agents. obtain official reports of kidney function. 2. B/L Leg pain- chronic for >5 months. possible leg cramps vs claudication with arterial insuff. no signs of acute occlusion. had u/s done to r/o clots ( assuming venous). ideally needs CTA to evaluate but not able to due to renal function. can f/u [facility] as outpatient for further testing 3. Tropinemia- liekly demand in setting of SHANA. 0.21-0.17-0.13. flat trend with no complaints of chest pain. will check echo. if negative can f/u with cardio outpatient 4. Normocytic anemia- check iron studies. Hgb stable. no signs of bleeding 5. CAD s/p stents- cont home regimen 6. HTN- controlled. holding ARB for SHANA. 7. Hx of afib- on xarelto. cont home medications 8. Obesity- BMI 35. baritric referral 9. DVT ppx- xarelto 10. pt is homeless and lives in nursing home but reports he follows with PMD regularly and complaint with medications (has bag of medicine at bedside.)
[2018-08-01] MEDS ORDERED: ACETAMINOPHEN 325 MG TABLET (FP) ONE (13:52)
--- NOTE | 2018-08-01 21:09 | PN ---
Physical Exam: SUBJECTIVE: Patient seen and examined at bedside. No acute events overnight. Pt still complaining of b/l leg pain, L worse than R. Otherwise, chest pain has since resolved upon admission, and denies sob, abd pain, urinary/bowel symptoms. OBJECTIVE: Vital Signs Temperature 97.6 F 08/01/18 05:54 Pulse Rate 66 08/01/18 10:35 Respiratory Rate 18 08/01/18 09:23 Blood Pressure 129/68 08/01/18 10:35 O2 Sat by Pulse Oximetry (%) 96 08/01/18 10:35 GENERAL: Awake, alert, and fully oriented, in no acute distress. HEAD: Normal with no signs of trauma. EYES: Pupils equal, round and reactive to light, extraocular movements intact EARS, NOSE, THROAT: Moist mucous membranes. LUNGS: Breath sounds equal, clear to auscultation bilaterally. No wheezes, and no crackles. No accessory muscle use. HEART: Regular rate and rhythm, normal S1 and S2 without murmur, rub or gallop. substernal scar ABDOMEN: Soft, nontender, not distendedNo hepatomegaly or splenomegaly. LOWER EXTREMITIES: 2+ pulses, warm, well-perfused. pain to squeezing of b/l calves; normal hair distribution on lower legs, no erythema, warmth or redness noted. CBC, BMP 08/01/18 05:50 08/01/18 05:50 Active Medications Acetaminophen (Tylenol -) 650 mg PO Q4H PRN PRN Reason: MODERATE PAIN Aspirin (Asa -) 81 mg PO DAILY [facility] Last Admin: 08/01/18 10:36 Dose: 81 mg Atorvastatin Calcium (Lipitor -) 80 mg PO [facility] Clopidogrel Bisulfate (Plavix -) 75 mg PO DAILY [facility] Last Admin: 08/01/18 10:36 Dose: 75 mg Digoxin (Lanoxin -) 0.125 mg PO DAILY [facility] Last Admin: 08/01/18 10:30 Dose: 0.125 mg Dronedarone (Multaq -) 400 mg PO BID [facility] Last Admin: 08/01/18 12:15 Dose: 400 mg Escitalopram Oxalate (Lexapro -) 20 mg PO DAILY [facility] Last Admin: 08/01/18 10:36 Dose: 20 mg Finasteride (Proscar -) 5 mg PO DAILY [facility] Last Admin: 08/01/18 12:15 Dose: 5 mg Gabapentin (Neurontin -) 400 mg PO TID [facility] Last Admin: 08/01/18 14:32 Dose: 400 mg Heparin Sodium (Porcine) (Heparin -) 5,000 unit SQ TID [facility] Last Admin: 08/01/18 14:32 Dose: 5,000 unit Sodium Chloride (Normal Saline -) 1,000 mls @ 100 mls/hr IV ASDIR [facility] Last Admin: 08/01/18 04:44 Dose: 100 mls/hr Isosorbide Mononitrate (Imdur -) 30 mg PO DAILY [facility] Last Admin: 08/01/18 10:36 Dose: 30 mg Metoprolol Tartrate (Lopressor -) 100 mg PO BID [facility] Last Admin: 08/01/18 10:36 Dose: 100 mg Pantoprazole Sodium (Protonix -) 40 mg PO DAILY [facility] Last Admin: 08/01/18 10:37 Dose: 40 mg Rivaroxaban (Xarelto) 15 mg PO DAILY@1800 [facility] Tamsulosin HCl (Flomax -) 0.4 mg PO DAILY@0830 [facility] Last Admin: 08/01/18 09:12 Dose: 0.4 mg IMAGING: * Renal/bladder U/S: Unremarkable kidneys b/l. PVR 46cc. B/l atrophic jets identified. * Echo: nl EF, diastolic dysfxn * Arterial duplex: pending read ASSESSMENT/PLAN: 63 y/o male with a history of CAD with [place] ( 1 month ago at [place]), 17 stents , HTN, HLD, afib, aortic anyeurysm, and depression who presents for bilateral leg pain. #B/L lower extremity leg pain; likely 2/2 PVD Cont home med: Gabapentin 400 TID -Tylenol as needed for pain -f/u arterial duplex -Obtain records from [place] as pt states he has had multiple recent ultrasounds done in the past (presumably venous) to check for "blood clots" #SHANA; possibly 2/2 to recent toradol use (given at [facility]) vs. dehydration -Continue fluids -Renal U/S noted above; unremarkable. -trend BMP #Elevated troponins -likely demand in setting of SHANA; Pt has no complaints currently. -f/u cardio consult #CAD; s/p with 17 stent hx - most recent stent 1 month ago Cont home meds: xarelto, clopidogrel, atorvastatin, and aspirin -EKG with ST depression and t wave inversion, no change from EKG's from [facility] -Echo noted above #afib; stable. Cont home meds: Digoxin 0.125 mg QD, Dronederone 400 BID, Xarelto 15 QD #BPH Cont home meds: Finasteride 5 QD and Tamsulosin 0.4 QD #HTN - hold losartan with SHANA hx - continue metoprolol - hypotension on admission, responded to 500 ml bolus #Depression Cont home med: Escitalopram 20 QD #GERD Cont home med: Pantoprazole 40 QD #DVT ppx -SQH FEN -NS @ 100 - low sodium/diabetic diet Dispo: monitor on tele -Obtain records from [facility] Visit type - Emergency Visit Emergency Visit: Yes ED Registration Date: 07/31/18 Care time: The patient presented to the Emergency Department on the above date and was hospitalized for further evaluation of their emergent condition. - New Patient This patient is new to me today: Yes Date on this admission: 08/01/18 - Critical Care Critical Care patient: No
[2018-08-01] MEDS: ATORVASTATIN CA 80 MG TABLET (FP) PO SCH (21:54)
[2018-08-01] MEDS ORDERED: MELATONIN 5 MG TABLETS PO ONE (23:08)
[2018-08-02] MEDS: DRONEDARONE HCL 400 MG TAB (FP) PO SCH ×3 (00:03→22:57)
[2018-08-02 03:10] VITALS: BMI 35.7
[2018-08-02 04:11] LABS: SERUM IRON SATURATION 12 % (15-55); TOTAL IRON BINDING CAPACITY 294 ug/dL (250-450); UIBC 259 ug/dL (111-343)
[2018-08-02] MEDS: ACETAMINOPHEN 325 MG TABLET (FP) PO PRN ×3 (05:43→22:55)
[2018-08-02] MEDS: oxyCODONE HCL 5 MG TABLET PO PRN ×3 (05:43→22:56)
[2018-08-02] MEDS: GABAPENTIN 400 MG CAPSULE (FP) PO SCH ×3 (05:44→22:55)
[2018-08-02] MEDS: HEPARIN NA (PORCINE) 5,000 UNITS/ML 1ML VIAL SQ SCH ×3 (05:46→23:01)
[2018-08-02 08:28] LABS: CALCIUM 8.6 mg/dL (8.5-10.1); CREATININE 1.2 mg/dL (0.55-1.3); PHOSPHOROUS 2.3 mg/dL (2.5-4.9); POTASSIUM 3.8 mmol/L (3.5-5.1)
--- NOTE | 2018-08-02 08:28 | PN ---
Physical Exam: SUBJECTIVE: Patient seen and examined at bedside. Pt states pain in his legs were better overnight, but still persistent. He denies f/c, chest pain, sob, back pain. Cande PO diet well. OBJECTIVE: Vital Signs Temperature 99.7 F H 08/02/18 05:30 Pulse Rate 74 08/02/18 05:30 Respiratory Rate 20 08/02/18 05:30 Blood Pressure 146/75 08/02/18 05:30 O2 Sat by Pulse Oximetry (%) 98 08/01/18 20:00 GENERAL: Awake, alert, and fully oriented, in no acute distress. HEAD: Normal with no signs of trauma. EYES: Pupils equal, round and reactive to light, extraocular movements intact EARS, NOSE, THROAT: Moist mucous membranes. LUNGS: Breath sounds equal, clear to auscultation bilaterally. No wheezes, and no crackles. No accessory muscle use. HEART: Regular rate and rhythm, normal S1 and S2 without murmur, rub or gallop. substernal scar ABDOMEN: Soft, nontender, not distended. No hepatomegaly or splenomegaly. LOWER EXTREMITIES: 2+ pulses, warm, well-perfused. pain to squeezing of b/l calves; normal hair distribution on lower legs, no erythema, warmth or redness noted. CBCD WBC 6.1 K/mm3 (4.0-10.0) 08/01/18 05:50 RBC 3.53 M/mm3 (4.00-5.60) L 08/01/18 05:50 Hgb 10.0 GM/dL (11.7-16.9) L 08/01/18 05:50 Hct 31.3 % (35.4-49) L 08/01/18 05:50 MCV 88.6 fl (80-96) 08/01/18 05:50 MCHC 32.0 g/dl (32.0-35.9) 08/01/18 05:50 RDW 17.8 % (11.9-15.9) H 08/01/18 05:50 Plt Count 157 K/MM3 (134-434) 08/01/18 05:50 MPV 9.6 fl (7.5-11.1) 08/01/18 05:50 CMP Sodium 140 mmol/L (136-145) 08/01/18 05:50 Potassium 3.4 mmol/L (3.5-5.1) L 08/01/18 05:50 Chloride 106 mmol/L (98-107) 08/01/18 05:50 Carbon Dioxide 23 mmol/L (21-32) 08/01/18 05:50 Anion Gap 11 MMOL/L (8-16) 08/01/18 05:50 BUN 62 mg/dL (7-18) H 08/01/18 05:50 Creatinine 2.7 mg/dL (0.55-1.3) H 08/01/18 05:50 Calcium 8.3 mg/dL (8.5-10.1) L 08/01/18 05:50 Total Bilirubin 0.3 mg/dL (0.2-1) 08/01/18 05:50 AST 19 U/L (15-37) 08/01/18 05:50 ALT 17 U/L (13-61) 08/01/18 05:50 Alkaline Phosphatase 92 U/L (45-117) 08/01/18 05:50 Total Protein 6.2 g/dl (6.4-8.2) L 08/01/18 05:50 Albumin 3.0 g/dl (3.4-5.0) L 08/01/18 05:50 Active Medications Acetaminophen (Tylenol -) 650 mg PO Q4H PRN PRN Reason: MODERATE PAIN Acetaminophen (Tylenol -) 325 mg PO Q6H PRN PRN Reason: PAIN SCALE 7-10 Last Admin: 08/02/18 05:43 Dose: 325 mg Aspirin (Asa -) 81 mg PO DAILY [facility] Last Admin: 08/01/18 10:36 Dose: 81 mg Atorvastatin Calcium (Lipitor -) 80 mg PO HS [facility] Last Admin: 08/01/18 21:54 Dose: 80 mg Clopidogrel Bisulfate (Plavix -) 75 mg PO DAILY [facility] Last Admin: 08/01/18 10:36 Dose: 75 mg Digoxin (Lanoxin -) 0.125 mg PO DAILY [facility] Last Admin: 08/01/18 10:30 Dose: 0.125 mg Dronedarone (Multaq -) 400 mg PO BID [facility] Last Admin: 08/02/18 00:03 Dose: 400 mg Escitalopram Oxalate (Lexapro -) 20 mg PO DAILY [facility] Last Admin: 08/01/18 10:36 Dose: 20 mg Finasteride (Proscar -) 5 mg PO DAILY [facility] Last Admin: 08/01/18 12:15 Dose: 5 mg Gabapentin (Neurontin -) 400 mg PO TID [facility] Last Admin: 08/02/18 05:44 Dose: 400 mg Heparin Sodium (Porcine) (Heparin -) 5,000 unit SQ TID [facility] Last Admin: 08/02/18 05:46 Dose: 5,000 unit Sodium Chloride (Normal Saline -) 1,000 mls @ 100 mls/hr IV ASDIR [facility] Last Admin: 08/01/18 04:44 Dose: 100 mls/hr Isosorbide Mononitrate (Imdur -) 30 mg PO DAILY [facility] Last Admin: 08/01/18 10:36 Dose: 30 mg Metoprolol Tartrate (Lopressor -) 100 mg PO BID [facility] Last Admin: 08/01/18 21:54 Dose: 100 mg Oxycodone HCl (Roxicodone -) 5 mg PO Q6H PRN PRN Reason: PAIN SCALE 7-10 Last Admin: 08/02/18 05:43 Dose: 5 mg Pantoprazole Sodium (Protonix -) 40 mg PO DAILY [facility] Last Admin: 08/01/18 10:37 Dose: 40 mg Rivaroxaban (Xarelto) 15 mg PO DAILY@1800 [facility] Tamsulosin HCl (Flomax -) 0.4 mg PO DAILY@0830 [facility] Last Admin: 08/01/18 09:12 Dose: 0.4 mg IMAGING: * Renal/bladder U/S: Unremarkable kidneys b/l. PVR 46cc. B/l atrophic jets identified. * Echo: nl EF, diastolic dysfxn * Arterial duplex: Mod amt of atherosclerotic plaque scattered throughout common and SFA, as well as popliteal and posterior tib arteries b/l. On R side, largely triphasic flow throughout vessels w/o evid of occlusion or HD significant stenosis. On L side, large abnormal monophasic flow throughout vessels. Suggest inflow pathology and CTA or conventional angiography now recommended. ASSESSMENT/PLAN: 63 y/o male with a history of CAD with [place] ( 1 month ago at [place]), 17 stents , HTN, HLD, afib, aortic aneurysm, and depression who presents for bilateral leg pain. #B/L lower extremity leg pain; likely 2/2 PVD Cont home med: Gabapentin 400 TID -Percocet 5-325 QD -Arterial duplex noted above -Obtain records from [place] as pt states he has had multiple recent ultrasounds done in the past (presumably venous) to check for "blood clots"; currently on Xarelto #SHANA; possibly 2/2 to recent toradol use (given at [facility]) vs. dehydration -Continue fluids; Cr improved to 1.2 -Renal U/S noted above; unremarkable. #Elevated troponins -likely demand in setting of SHANA; Pt has no complaints currently. -Per cardio, cont to trend trops until it peaks. No further cardiac workup needed at this time; likely need outpatient follow up. #CAD; s/p with 17 stent hx - most recent stent 1 month ago Cont home meds: Xarelto 15 QD, Clopidogrel 75 QD, Atorvastatin 80 HS, and Aspirin 81 QD -EKG with ST depression and t wave inversion, no change from EKG's from [place] -Echo noted above -f/u cardio recs #HTN Cont home med: Metoprolol 100 BID, hold Losartan in setting of SHANA #Afib; stable. Cont home meds: Digoxin 0.125 mg QD, Dronederone 400 BID, Xarelto 15 QD #BPH- Cont home meds: Finasteride 5 QD and Tamsulosin 0.4 QD #Depression- Cont home med: Escitalopram 20 QD #GERD- Cont home med: Pantoprazole 40 QD #DVT ppx- SQH #FEN -NS @ 100 -Low sodium/diabetic diet Dispo: monitor on tele -Obtain records from [place] Visit type - Emergency Visit Emergency Visit: Yes ED Registration Date: 07/31/18 Care time: The patient presented to the Emergency Department on the above date and was hospitalized for further evaluation of their emergent condition. - New Patient This patient is new to me today: No - Critical Care Critical Care patient: No
[2018-08-02] MEDS ORDERED: POTASSIUM PHOSPHATE 15 MM in SODIUM CHLORIDE 250 ML IVPB ONE (09:30)
[2018-08-02] MEDS ORDERED: PT OWN MED DRAWER 7, Y5N ONE ×2 (11:02→22:51)
[2018-08-02] MEDS: METOPROLOL TARTRATE 50 MG TABLET (FP) PO SCH ×2 (11:08→22:56)
[2018-08-02] MEDS: TAMSULOSIN HCL 0.4 MG CAP PO SCH (11:08)
[2018-08-02] MEDS: CLOPIDOGREL BISULFATE 75 MG TABLET (FP) PO SCH (11:08)
[2018-08-02] MEDS: ESCITALOPRAM OXALATE 20 MG TABLET (FP) PO SCH (11:08)
[2018-08-02] MEDS: ISOSORBIDE MONONITRATE 30 MG TAB.SR.24H (FP) PO SCH (11:08)
[2018-08-02] MEDS: ASPIRIN 81 MG CHEWABLE TABLETS PO SCH (11:08)
[2018-08-02] MEDS: FINASTERIDE 5 MG TABLET (FP) PO SCH (11:08)
[2018-08-02] MEDS: DIGOXIN 0.125 MG TABLET (FP) PO SCH (11:09)
[2018-08-02] MEDS: PANTOPRAZOLE 40 MG TABLET (FP) PO SCH (11:09)
--- NOTE | 2018-08-02 12:37 | PN ---
Teaching Attending Note Name of Resident: Crystal Coleman ATTENDING PHYSICIAN STATEMENT I saw and evaluated the patient. I reviewed the resident's note and discussed the case with the resident. I agree with the resident's findings and plan as documented. SUBJECTIVE: Feels well, complains of cramping. One episode of CP in ED lasting 3 minutes, no recurrence. OBJECTIVE: Afebrile, Hemodynamically Stable. Last Vital Signs Temp Pulse Resp BP Pulse Ox 99.7 F H 94 H 20 146/75 95 08/02/18 05:30 08/02/18 11:09 08/02/18 05:30 08/02/18 05:30 08/02/18 09:00 HEENT - Atraumatic, Normocephalic. Heart - S1, S2, RRR, midline sternotomy scar Lungs - clear to auscultation Abdomen - Soft, non-tender. Bowel Sounds normal. Extremities -bilateral calf tenderness, warm, neurovascularly intact. Laboratory Results - last 24 hr 08/01/18 08/02/18 05:50 05:40 Sodium 141 Potassium 3.8 Chloride 107 Carbon Dioxide 28 Anion Gap 5 L BUN 35 H Creatinine 1.2 Est GFR (CKD-EPI)AfAm 73.62 Est GFR (CKD-EPI)NonAf 63.52 Random Glucose 95 Calcium 8.6 Phosphorus 2.3 L Magnesium 2.0 Iron 35 L TIBC 294 Iron Saturation 12 L Current Medications Generic Name Dose Route Start Last Admin Trade Name Freq PRN Reason Stop Dose Admin Acetaminophen 650 mg 08/01/18 03:25 Tylenol - PO Q4H PRN MODERATE PAIN Acetaminophen 325 mg 08/02/18 00:32 08/02/18 05:43 Tylenol - PO 325 mg Q6H PRN Administration PAIN SCALE 7-10 Aspirin 81 mg 08/01/18 10:00 08/02/18 11:08 Asa - PO 81 mg DAILY MARITZA Administration Atorvastatin Calcium 80 mg 08/01/18 22:00 08/01/18 21:54 Lipitor - PO 80 mg HS MARITZA Administration Clopidogrel Bisulfate 75 mg 08/01/18 10:00 08/02/18 11:08 Plavix - PO 75 mg DAILY MARITZA Administration Digoxin 0.125 mg 08/01/18 10:00 08/02/18 11:09 Lanoxin - PO 0.125 mg DAILY MARITZA Administration Dronedarone 400 mg 08/01/18 10:00 08/02/18 11:08 Multaq - PO 400 mg BID MARITZA Administration Escitalopram Oxalate 20 mg 08/01/18 10:00 08/02/18 11:08 Lexapro - PO 20 mg DAILY MARITZA Administration Finasteride 5 mg 08/01/18 10:00 08/02/18 11:08 Proscar - PO 5 mg DAILY MARITZA Administration Gabapentin 400 mg 08/01/18 06:00 08/02/18 05:44 Neurontin - PO 400 mg TID MARITZA Administration Heparin Sodium (Porcine) 5,000 unit 08/01/18 06:00 08/02/18 05:46 Heparin - SQ 5,000 unit TID MARITZA Administration Sodium Chloride 1,000 mls @ 100 mls/hr 08/01/18 03:30 08/01/18 04:44 Normal Saline - IV 100 mls/hr ASDIR MARITZA Administration Potassium Phosphate 15 mm/ 255 mls @ 42.5 mls/hr 08/02/18 09:30 08/02/18 11: 09 Sodium Chloride IVPB 08/02/18 15:29 42.5 mls/hr ONCE ONE Administration Isosorbide Mononitrate 30 mg 08/01/18 10:00 08/02/18 11:08 Imdur - PO 30 mg DAILY MARITZA Administration Metoprolol Tartrate 100 mg 08/01/18 10:00 08/02/18 11:08 Lopressor - PO 100 mg BID MARITZA Administration Oxycodone HCl 5 mg 08/02/18 00:32 08/02/18 05:43 Roxicodone - PO 5 mg Q6H PRN Administration PAIN SCALE 7-10 Pantoprazole Sodium 40 mg 08/01/18 10:00 08/02/18 11:09 Protonix - PO 40 mg DAILY MARITZA Administration Rivaroxaban 15 mg 08/01/18 18:00 Xarelto PO DAILY@1800 MARITZA Tamsulosin HCl 0.4 mg 08/01/18 08:30 08/02/18 11:08 Flomax - PO 0.4 mg DAILY@0830 MARITZA Administration ASSESSMENT AND PLAN: 63 year old male with history of CAD s/p CABG, s/p CA (07/17, treated at [facility]) s/p PCI/stents, HTN, HLD, Atrial Fibrillation (on Xarelto), Aortic Aneurysm, Depression, BPH, who presented to the ED with bilateral LE pain/cramps , difficulty ambulating, and developed CP in ED. Found to have SHANA. 1. SHANA - resolved Creat down to 1.2 from 3.2 Renal US - no obstruction Cozaar held. 2. Bilateral LE pain/cramping Arterial Duplex - inflow pathology LLE Will consult Vascular Surgery. 3. CAD s/p CABG s/p CA s/p PCI/Stents (17 per patient) Episode of CP in ED, Troponin positive (0.21 --> 0.13) Echo - normal LV function and EF. Grade II diastolic dysfunction, pulmonary HTN. Awaiting Cardiology eval and further recommendations. Continue Aspirin, Plavix, Lopressor, Lipitor, Imdur, Ranexa 4. Normocytic Anemia - H/H 12/29.3, MCV 88.6 Iron Sat 12% Will supplement with Ferrous Sulfate. Will also send B12, Folate levels. Will need further out-patient work-up/follow up given ongoing anti-platelet and anticoagulation agents. No active bleeding currently. 5. HTN - Continue Lopressor, Imdur. ARB held due to SHANA, can resume tomorrow if Creatinine remains stable. 6. Hyperlipidemia - Continue Lipitor 7. Paroxysmal Atrial Fibrillation - Currently in SR - Continue Digoxin, Multaq, Lopresor, Xarelto 8. Depression - Continue Lexapro 9. BPH - continue Tamsulosin. DVT Px - on Xarelto
[2018-08-02 14:31] LABS: URINE APPEARANCE CLEAR; URINE BILIRUBIN NEGATIVE (NEGATIVE); URINE COLOR YELLOW; URINE GLUCOSE (UA) TRACE (NEGATIVE); URINE KETONE NEGATIVE (NEGATIVE); URINE LEUK ESTERASE NEGATIVE (NEGATIVE); URINE NITRITE NEGATIVE (NEGATIVE); URINE PROTEIN NEGATIVE (NEGATIVE)
--- NOTE | 2018-08-02 14:52 | PN ---
Progress Note, Physician Chief Complaint: Pt A&Ox3; no chest pain presently; no dyspnea. History of Present Illness: The patient is a 63-year-old male with a past medical history significant for CAD, [place] (a month ago, treated at [facility], on Xarelto and baby ASA), s/ p PCI and stent (?), presents to the emergency department with bilateral leg pain and increased fatigue. The patient presents with 2 months of bilateral leg pain, left greater than right. The patient reports the pain has worsened in the last couple of day, associated with swelling. The patient also states hes been having 2 days of increased fatigue, worse with exertion. The patient reports additional complain of left-sided chest and shoulder pain. Denies fever or chills. The patient is a poor historian. Allergies: Penicillins Social history: The patient reports hes currently living in a intermediate, . The patient reports he gets his medication from the [facility]. Former smoker. Non-domicile. - - Current Medication List Current Medications: Active Medications Acetaminophen (Tylenol -) 650 mg PO Q4H PRN PRN Reason: MODERATE PAIN Acetaminophen (Tylenol -) 325 mg PO Q6H PRN PRN Reason: PAIN SCALE 7-10 Last Admin: 08/02/18 05:43 Dose: 325 mg Aspirin (Asa -) 81 mg PO DAILY [facility] Last Admin: 08/02/18 11:08 Dose: 81 mg Atorvastatin Calcium (Lipitor -) 80 mg PO HS [facility] Last Admin: 08/01/18 21:54 Dose: 80 mg Clopidogrel Bisulfate (Plavix -) 75 mg PO DAILY [facility] Last Admin: 08/02/18 11:08 Dose: 75 mg Digoxin (Lanoxin -) 0.125 mg PO DAILY [facility] Last Admin: 08/02/18 11:09 Dose: 0.125 mg Dronedarone (Multaq -) 400 mg PO BID [facility] Last Admin: 08/02/18 11:08 Dose: 400 mg Escitalopram Oxalate (Lexapro -) 20 mg PO DAILY [facility] Last Admin: 08/02/18 11:08 Dose: 20 mg Ferrous Sulfate (Feosol -) 325 mg PO BID [facility] Finasteride (Proscar -) 5 mg PO DAILY [facility] Last Admin: 08/02/18 11:08 Dose: 5 mg Gabapentin (Neurontin -) 400 mg PO TID [facility] Last Admin: 08/02/18 05:44 Dose: 400 mg Heparin Sodium (Porcine) (Heparin -) 5,000 unit SQ TID [facility] Last Admin: 08/02/18 05:46 Dose: 5,000 unit Sodium Chloride (Normal Saline -) 1,000 mls @ 100 mls/hr IV ASDIR [facility] Last Admin: 08/01/18 04:44 Dose: 100 mls/hr Potassium Phosphate 15 mm/ (Sodium Chloride) 255 mls @ 42.5 mls/hr IVPB ONCE ONE Stop: 08/02/18 15:29 Last Admin: 08/02/18 11:09 Dose: 42.5 mls/hr Isosorbide Mononitrate (Imdur -) 30 mg PO DAILY [facility] Last Admin: 08/02/18 11:08 Dose: 30 mg Metoprolol Tartrate (Lopressor -) 100 mg PO BID [facility] Last Admin: 08/02/18 11:08 Dose: 100 mg Oxycodone HCl (Roxicodone -) 5 mg PO Q6H PRN PRN Reason: PAIN SCALE 7-10 Last Admin: 08/02/18 05:43 Dose: 5 mg Pantoprazole Sodium (Protonix -) 40 mg PO DAILY [facility] Last Admin: 08/02/18 11:09 Dose: 40 mg Rivaroxaban (Xarelto) 15 mg PO DAILY@1800 [facility] Tamsulosin HCl (Flomax -) 0.4 mg PO DAILY@0830 [facility] Last Admin: 08/02/18 11:08 Dose: 0.4 mg - Objective Vital Signs: Vital Signs Temperature 99.7 F H 08/02/18 05:30 Pulse Rate 94 H 08/02/18 11:09 Respiratory Rate 20 08/02/18 05:30 Blood Pressure 146/75 08/02/18 05:30 O2 Sat by Pulse Oximetry (%) 95 08/02/18 09:00 Constitutional: Yes: Anxious Eyes: Yes: WNL HENT: Yes: WNL Cardiovascular: Yes: S1, S2, S4 Gastrointestinal: Yes: Soft ...Rectal Exam: Yes: Deferred Genitourinary: No: Anuria Musculoskeletal: Yes: Muscle Weakness Extremities: Yes: Cool Edema: Yes Edema: LLE: Trace, RLE: Trace Peripheral Pulses WNL: No Peripheral Pulses: Left Doralis Pedis: 1+, Right Dorsalis Pedis: 1+ Integumentary: Yes: Venous Stasis Changes Neurological: Yes: Alert, Oriented Psychiatric: Yes: WNL Labs: CBC, BMP 08/01/18 05:50 08/02/18 05:40 INR, PTT INR 1.51 (0.83-1.09) H 07/31/18 21:45 Abnormal Lab Results 08/02/18 08/02/18 08/03/18 05:40 20:00 06:56 Anion Gap 5 L 6 L BUN 35 H 19 H Calcium 8.4 L Phosphorus 2.3 L Ur Random Creatinine 158.0 H U Random Total Protein 26.7 H Ur Random Sodium 24 L Ur Random Chloride 16 L Ur Random Urea Nitrogn 1334 H - ....Imaging Chest X-ray: Image Reviewed Ultrasound: Image Reviewed EKG: Image Reviewed Problem List - Problems (1) Acute on chronic diastolic CHF (congestive heart failure) Assessment/Plan: Pt has a long list of medications. He says he is taking all of them. However, pt has different regimens of medication depending on who he sees. He has not seen Dr. Walters, the [place] cotton buyer who pt says knows him best, for more than a year. He has had medications changed because of insurance problems. Plan: Stop amiodarone (pt says he was taking it only because he could not afford Multaq; now that his insurance covers the latter, he is taking it again. LVEF is WNL). Stop digoxin (pt is on both Multaq and metoprolol ER; he has also been taking amiodarone). Gradually decrease and discontinue clonidine (pt is also on metoprolol ER). Code(s): I50.33 - ACUTE ON CHRONIC DIASTOLIC (CONGESTIVE) HEART FAILURE (2) Old myocardial infarct Code(s): I25.2 - OLD MYOCARDIAL INFARCTION (3) Hx of CABG Assessment/Plan: reportedly "one vessel diseasse"; CABG done about 5 yrs ago. F/u records. Pt reports having had 8 stents prior to CABG, and "8 or 9 more" since then, the most recent reportedly a month ago at [place] when he was having an [place]). Code(s): Z95.1 - PRESENCE OF AORTOCORONARY BYPASS GRAFT (4) Noncompliance with medication regimen Code(s): Z91.14 - PATIENT'S OTHER NONCOMPLIANCE WITH MEDICATION REGIMEN (5) Anemia Code(s): D64.9 - ANEMIA, UNSPECIFIED (6) HTN (hypertension) Code(s): I10 - ESSENTIAL (PRIMARY) HYPERTENSION (7) Hyperlipidemia Code(s): E78.5 - HYPERLIPIDEMIA, UNSPECIFIED (8) Atrial fibrillation Assessment/Plan: On metoprlol ER. On Multaq. D/c amiodarone D/c digoxin. Continue rivaroxaban for anticoagulation. (also on Plavix and ASA; had "[place]" and coronary stent at [place] a month ago; f/u records). Code(s): I48.91 - UNSPECIFIED ATRIAL FIBRILLATION (9) BPH (benign prostatic hyperplasia) Code(s): N40.0 - BENIGN PROSTATIC HYPERPLASIA WITHOUT LOWER URINRY TRACT SYMP (10) PAD (peripheral artery disease) Assessment/Plan: for CTA; f/u with vascular surgeon. Code(s): I73.9 - PERIPHERAL VASCULAR DISEASE, UNSPECIFIED
--- NOTE | 2018-08-02 16:00 | CONSULT ---
- Consultation REQUESTING PROVIDER: CONSULT REQUEST: We have been asked to surgically evaluate this patient for (B/ L LE pain, duplex findings). PCP:Sai Flores MD HISTORY OF PRESENT ILLNESS: 63 y/o M w/ PMHx CAD s/p NV 1 month ago at [place] , h/o 17 stents in the past, single vessel CABG (2011), HTN, HLD, afib, aortic aneurysm, and depression admitted w/ bilateral leg pain. Pt reports he has had pain in his legs for over a year. Initially reports pain was worse in his LLE, however just prior to his NV pain has been equal in both legs. Pain is described as cramping, located in his calves, upper thighs and left hip. Pain is worse with walking, even a few steps. Denies rest pain. Has had ultrasounds in the past and reports he was told his "legs were fine". Denies fevers/chills, le wounds, h/o vascular intervention/evaluation, h/o dvt/pe. At baseline, pt is currently living in a long term (former [place]). Goes to [place] for the majority of his healthcare. Has h/o tobacco abuse (1ppd, quit 30 years ago). Has been ambulating with walker for the past few months due to LE pain and weakness. Reports he is able to do some of his ADLS. Has a h/o 4cm AA which he has known about for approximately 10 years, reports he has not had imagining in "a long time". PMHx: as above PSHx: as above, also R forearm surgery due to trauma () Home Medications Medication Instructions Recorded Amiodarone HCl 200 mg PO BID 08/01/18 Aspirin 81 mg PO DAILY 08/01/18 Atorvastatin Ca [Lipitor] 80 mg PO DAILY 08/01/18 Clopidogrel Bisulfate [Clopidogrel] 75 mg PO DAILY 08/01/18 Digoxin 0.125 mg PO DAILY 08/01/18 Dronedarone HCl [Multaq -] 400 mg PO BID 08/01/18 Escitalopram Oxalate [Lexapro -] 20 mg PO DAILY 08/01/18 Finasteride 5 mg PO DAILY 08/01/18 Gabapentin 400 mg PO TID 08/01/18 Isosorbide Mononitrate [Isosorbide 30 mg PO DAILY 08/01/18 Mononitrate ER] Losartan Potassium 50 mg PO DAILY 08/01/18 Metoprolol Tartrate 100 mg PO BID 08/01/18 Oxycodone HCl/Acetaminophen 1 tab PO Q6H 08/01/18 [Percocet 5-325 mg Tablet] Pantoprazole Sodium [Protonix] 40 mg PO DAILY 08/01/18 Ranolazine [Ranexa] 500 mg PO DAILY 08/01/18 Rivaroxaban [Xarelto] 20 mg PO DAILY 08/01/18 Tamsulosin HCl [Flomax] 0.4 mg PO DAILY 08/01/18 Furosemide 40 mg PO DAILY 08/02/18 Valsartan 80 mg PO BID 08/02/18 Allergies Allergy/AdvReac Type Severity Reaction Status Date / Time Penicillins Allergy Verified 07/31/18 20:29 REVIEW OF SYSTEMS: CONSTITUTIONAL: Absent: fever, chills CARDIOVASCULAR: Absent: syncope, palpitations RESPIRATORY: Absent: cough GASTROINTESTINAL: Absent: abdominal pain GENITOURINARY: Absent: dysuria PHYSICAL EXAM: GENERAL: Awake, alert, and fully oriented, in no acute distress. HEAD: Normal with no signs of trauma. LUNGS: No accessory muscle use. Unlabored on RA ABDOMEN: Soft, nontender, not distended, normoactive bowel sounds, no guarding, no rebound, no palpable pulsatile abdominal mass. LOWER EXTREMITIES: B/L feet warm, well perfused, no ulcers, no open wounds. Cap refill brisk. No edema, no leg ulcers. SILT b/l Vasc: 2+ b/l femorals (equal), 2+ R pop/dp/pt, L pop/dp/pt not appreciated. Vital Signs Temperature 98.4 F 08/02/18 14:00 Pulse Rate 59 L 08/02/18 14:00 Respiratory Rate 20 08/02/18 05:30 Blood Pressure 123/65 08/02/18 14:00 O2 Sat by Pulse Oximetry (%) 95 08/02/18 09:00 Lab Results WBC 6.1 K/mm3 (4.0-10.0) 08/01/18 05:50 RBC 3.53 M/mm3 (4.00-5.60) L 08/01/18 05:50 Hgb 10.0 GM/dL (11.7-16.9) L 08/01/18 05:50 Hct 31.3 % (35.4-49) L 08/01/18 05:50 MCV 88.6 fl (80-96) 08/01/18 05:50 MCHC 32.0 g/dl (32.0-35.9) 08/01/18 05:50 RDW 17.8 % (11.9-15.9) H 08/01/18 05:50 Plt Count 157 K/MM3 (134-434) 08/01/18 05:50 Sodium 141 mmol/L (136-145) 08/02/18 05:40 Potassium 3.8 mmol/L (3.5-5.1) 08/02/18 05:40 Chloride 107 mmol/L (98-107) 08/02/18 05:40 Carbon Dioxide 28 mmol/L (21-32) 08/02/18 05:40 Anion Gap 5 MMOL/L (8-16) L 08/02/18 05:40 BUN 35 mg/dL (7-18) H 08/02/18 05:40 Creatinine 1.2 mg/dL (0.55-1.3) 08/02/18 05:40 Random Glucose 95 mg/dL (74-106) 08/02/18 05:40 Calcium 8.6 mg/dL (8.5-10.1) 08/02/18 05:40 Blood Type Cancelled 07/31/18 21:45 Antibody Screen Cancelled 07/31/18 21:45 INR 1.51 (0.83-1.09) H 07/31/18 21:45 Arterial Duplex (08/01/18): There is a moderate amount of atherosclerotic plaque scattered throughout the common and superficial femoral arteries, as well as the popliteal and pilot boat captain bilaterally. On the right side, largely triphasic flow documented throughout these vessels with no evidence of occlusion or hemodynamically significant stenosis. On the left side, largely abnormal monophasic flow is documented throughout these vessels. This suggests inflow pathology and additional imaging such as CTA is recommended. A/P: 63 y/o M w/ PMHx CAD s/p NV 1 month ago at [place], h/o 17 stents in the past, single vessel CABG (2011), HTN, HLD, afib, aortic aneurysm, and depression admitted w/ bilateral leg pain. Patient with Equal bilateral lower extremity pain and weakness with ambulation. Sxs may be neurogenic in nature (has h.o lumbar disc herniations, etc). However , duplex with monophasic flow LLE (no pedal pulses) and triphasic flow RLE (2+ pedal pulses), recent cardiac cath done with access via L femoral artery. Concern for possible stenosing of artery during procedure/closure. -Will order CTA abdo/pelvis with runoff to further delineate anatomy -Hydration before and after CTA as pt a/w SHANA (according to primary team pt taking multiple duplicate medications at home including Rishi Inhibitors and Diuretics, also received Toradol recently during prior visit to OSH). -Above d/w pt, primary hospitalist (Dr Whitten), and attending Dr Cheek who all agree with plan
[2018-08-02] MEDS: RIVAROXABAN 15 MG TABLET PO SCH (18:08)
[2018-08-02] MEDS: SODIUM CHLORIDE 1,000 ML IV SCH (18:09)
[2018-08-02] MEDS ORDERED: AMIODARONE HCL 200 MG TABLET (FP) PO SCH (22:00)
[2018-08-02] MEDS: ATORVASTATIN CA 80 MG TABLET (FP) PO SCH (22:55)
[2018-08-02] MEDS: FERROUS SO4 325 MG TABLET (FP) PO SCH (22:56)
[2018-08-03] MEDS ORDERED: MELATONIN 5 MG TABLETS PO ONE (00:16)
[2018-08-03] MEDS: HEPARIN NA (PORCINE) 5,000 UNITS/ML 1ML VIAL SQ SCH ×3 (05:10→22:17)
[2018-08-03] MEDS: ACETAMINOPHEN 325 MG TABLET (FP) PO PRN ×2 (05:11→18:23)
[2018-08-03] MEDS: oxyCODONE HCL 5 MG TABLET PO PRN ×2 (05:11→18:22)
[2018-08-03] MEDS: GABAPENTIN 400 MG CAPSULE (FP) PO SCH ×3 (05:11→22:17)
[2018-08-03] MEDS: SODIUM CHLORIDE 1,000 ML IV SCH (05:50)
[2018-08-03 08:22] LABS: CALCIUM 8.4 mg/dL (8.5-10.1); POTASSIUM 3.9 mmol/L (3.5-5.1)
[2018-08-03] MEDS: TAMSULOSIN HCL 0.4 MG CAP PO SCH (10:30)
[2018-08-03] MEDS: METOPROLOL TARTRATE 50 MG TABLET (FP) PO SCH ×2 (11:00→22:17)
[2018-08-03] MEDS: FERROUS SO4 325 MG TABLET (FP) PO SCH ×2 (11:00→22:17)
[2018-08-03] MEDS: FINASTERIDE 5 MG TABLET (FP) PO SCH (11:05)
[2018-08-03] MEDS: ISOSORBIDE MONONITRATE 30 MG TAB.SR.24H (FP) PO SCH (11:05)
[2018-08-03] MEDS: PANTOPRAZOLE 40 MG TABLET (FP) PO SCH (11:10)
[2018-08-03] MEDS: ASPIRIN 81 MG CHEWABLE TABLETS PO SCH (11:10)
[2018-08-03] MEDS: ESCITALOPRAM OXALATE 20 MG TABLET (FP) PO SCH (11:15)
[2018-08-03] MEDS: CLOPIDOGREL BISULFATE 75 MG TABLET (FP) PO SCH (11:15)
[2018-08-03] MEDS: DRONEDARONE HCL 400 MG TAB (FP) PO SCH ×2 (11:15→22:17)
--- NOTE | 2018-08-03 11:32 | PN ---
Progress Note, Physician History of Present Illness: SUBJECTIVE: This is a 63 year old man with a history of CAD, [place], stents, HTN, hyperlipidemia, atrial fib, aortic aneurysm, depression who comes to the ED complaining of pain in his legs. The pain occurs while walking and at rest. It is in both calves but also in his upper left leg and above his left hip. Last night, he went to the ED at [facility] where he says he was told it was cramps, given Toradol with another medication, and discharged home. When he arrived in the ED today, he reported having chest tightness for about 3 minutes. past medical history significant for CAD, [place] (a month ago, treated at [facility], on Xarelto and baby ASA), s/p PCI and stent (?), presents to the emergency department with bilateral leg pain and increased fatigue. The patient presents with 2 months of bilateral leg pain, left greater than right. The patient reports the pain has worsened in the last couple of day, associated with swelling. The patient also states hes been having 2 days of increased fatigue, worse with exertion. The patient reports additional complain of left- sided chest and shoulder pain. Denies fever or chills. The patient is a poor historian. Allergies: Penicillins Social history: The patient reports hes currently living in a long term, [place]. The patient reports he gets his medication from the [place] [facility]. Former smoker. Non-domicile. - Current Medication List Current Medications: Active Medications Acetaminophen (Tylenol -) 650 mg PO Q4H PRN PRN Reason: MODERATE PAIN Acetaminophen (Tylenol -) 325 mg PO Q6H PRN PRN Reason: PAIN SCALE 7-10 Last Admin: 08/03/18 05:11 Dose: 325 mg Aspirin (Asa -) 81 mg PO DAILY [facility] Last Admin: 08/02/18 11:08 Dose: 81 mg Atorvastatin Calcium (Lipitor -) 80 mg PO HS [facility] Last Admin: 08/02/18 22:55 Dose: 80 mg Clopidogrel Bisulfate (Plavix -) 75 mg PO DAILY [facility] Last Admin: 08/02/18 11:08 Dose: 75 mg Dronedarone (Multaq -) 400 mg PO BID [facility] Last Admin: 08/02/18 22:57 Dose: 400 mg Escitalopram Oxalate (Lexapro -) 20 mg PO DAILY [facility] Last Admin: 08/02/18 11:08 Dose: 20 mg Ferrous Sulfate (Feosol -) 325 mg PO BID [facility] Last Admin: 08/02/18 22:56 Dose: 325 mg Finasteride (Proscar -) 5 mg PO DAILY [facility] Last Admin: 08/02/18 11:08 Dose: 5 mg Gabapentin (Neurontin -) 400 mg PO TID [facility] Last Admin: 08/03/18 05:11 Dose: 400 mg Heparin Sodium (Porcine) (Heparin -) 5,000 unit SQ TID [facility] Last Admin: 08/03/18 05:10 Dose: 5,000 unit Sodium Chloride (Normal Saline -) 1,000 mls @ 100 mls/hr IV ASDIR [facility] Last Admin: 08/03/18 05:50 Dose: 100 mls/hr Isosorbide Mononitrate (Imdur -) 30 mg PO DAILY [facility] Last Admin: 08/02/18 11:08 Dose: 30 mg Metoprolol Tartrate (Lopressor -) 100 mg PO BID [facility] Last Admin: 08/02/18 22:56 Dose: 100 mg Oxycodone HCl (Roxicodone -) 5 mg PO Q6H PRN PRN Reason: PAIN SCALE 7-10 Last Admin: 08/03/18 05:11 Dose: 5 mg Pantoprazole Sodium (Protonix -) 40 mg PO DAILY [facility] Last Admin: 08/02/18 11:09 Dose: 40 mg Rivaroxaban (Xarelto) 15 mg PO DAILY@1800 [facility] Last Admin: 08/02/18 18:08 Dose: 15 mg Tamsulosin HCl (Flomax -) 0.4 mg PO DAILY@0830 [facility] Last Admin: 08/02/18 11:08 Dose: 0.4 mg - Objective Vital Signs: Vital Signs Temperature 99.2 F 08/03/18 06:00 Pulse Rate 72 08/03/18 06:00 Respiratory Rate 18 08/03/18 06:00 Blood Pressure 143/79 08/03/18 06:00 O2 Sat by Pulse Oximetry (%) 96 08/02/18 21:00 Eyes: Yes: WNL, Conjunctiva Clear, EOM Intact HENT: Yes: WNL, Atraumatic, Normocephalic Neck: Yes: WNL, Supple, Trachea Midline Cardiovascular: Yes: WNL, Regular Rate and Rhythm Respiratory: Yes: WNL, Regular, CTA Bilaterally Gastrointestinal: Yes: WNL, Normal Bowel Sounds Genitourinary: Yes: WNL Musculoskeletal: Yes: WNL Extremities: Yes: WNL Edema: No Integumentary: Yes: WNL Neurological: Yes: WNL, Alert, Oriented ...Motor Strength: WNL Psychiatric: Yes: WNL Labs: CBC, BMP 08/01/18 05:50 08/03/18 06:56 INR, PTT INR 1.51 (0.83-1.09) H 07/31/18 21:45 Assessment/Plan Problems (1) Acute on chronic diastolic CHF (congestive heart failure) Assessment/Plan: Pt has a long list of medications. He says he is taking all of them. However, pt has different regimens of medication depending on who he sees. He has not seen Dr. Walters, the [place] automotive design layout drafter who pt says knows him best, for more than a year. He has had medications changed because of insurance problems. Plan: Stop amiodarone (pt says he was taking it only because he could not afford Multaq; now that his insurance covers the latter, he is taking it again. LVEF is WNL). Stop digoxin (pt is on both Multaq and metoprolol ER; he has also been taking amiodarone). Gradually decrease and discontinue clonidine (pt is also on metoprolol ER). Code(s): I50.33 - ACUTE ON CHRONIC DIASTOLIC (CONGESTIVE) HEART FAILURE (2) Old myocardial infarct Code(s): I25.2 - OLD MYOCARDIAL INFARCTION (3) Hx of CABG Assessment/Plan: reportedly "one vessel diseasse"; CABG done about 5 yrs ago. F/u records. Pt reports having had 8 stents prior to CABG, and "8 or 9 more" since then, the most recent reportedly a month ago at [place] when he was having an [place]). Code(s): Z95.1 - PRESENCE OF AORTOCORONARY BYPASS GRAFT (4) Noncompliance with medication regimen Code(s): Z91.14 - PATIENT'S OTHER NONCOMPLIANCE WITH MEDICATION REGIMEN (5) Anemia Code(s): D64.9 - ANEMIA, UNSPECIFIED (6) HTN (hypertension) Code(s): I10 - ESSENTIAL (PRIMARY) HYPERTENSION (7) Hyperlipidemia Code(s): E78.5 - HYPERLIPIDEMIA, UNSPECIFIED (8) Atrial fibrillation Assessment/Plan: On metoprlol ER. On Multaq. D/c amiodarone D/c digoxin. Continue rivaroxaban for anticoagulation. (also on Plavix and ASA; had "[place]" and coronary stent at [place] a month ago; f/u records). Code(s): I48.91 - UNSPECIFIED ATRIAL FIBRILLATION (9) BPH (benign prostatic hyperplasia) Code(s): N40.0 - BENIGN PROSTATIC HYPERPLASIA WITHOUT LOWER URINRY TRACT SYMP (10) PAD (peripheral artery disease) Assessment/Plan: for CTA; f/u with vascular surgeon. Code(s): I73.9 - PERIPHERAL VASCULAR DISEASE, UNSPECIFIED
--- NOTE | 2018-08-03 12:00 | PN ---
Teaching Attending Note Name of Resident: Crystal Coleman ATTENDING PHYSICIAN STATEMENT I saw and evaluated the patient. I reviewed the resident's note and discussed the case with the resident. I agree with the resident's findings and plan as documented. SUBJECTIVE: Ongoing cramping LEs. No further CP. OBJECTIVE: Afebrile, Hemodynamically Stable. Last Vital Signs Temp Pulse Resp BP Pulse Ox 99.2 F 72 18 143/79 96 08/03/18 06:00 08/03/18 06:00 08/03/18 06:00 08/03/18 06:00 08/02/18 21:00 Heart - S1, S2, RRR, midline sternotomy scar Lungs - clear to auscultation Abdomen - Soft, non-tender. Bowel Sounds normal. Extremities -bilateral calf tenderness, warm, neurovascularly intact. Laboratory Results - last 24 hr 08/02/18 08/02/18 08/02/18 05:40 12:40 20:00 Sodium 141 Potassium 3.8 Chloride 107 Carbon Dioxide 28 Anion Gap 5 L BUN 35 H Creatinine 1.2 Est GFR (CKD-EPI)AfAm 73.62 Est GFR (CKD-EPI)NonAf 63.52 Random Glucose 95 Calcium 8.6 Phosphorus 2.3 L Magnesium 2.0 Vitamin B12 368 Serum Folate 10 TSH 0.36 Urine Color Yellow Urine Appearance Clear Urine pH 6.0 Ur Specific [place] 1.021 Urine Protein Negative Urine Glucose (UA) Trace Urine Ketones Negative Urine Blood Negative Urine Nitrite Negative Urine Bilirubin Negative Urine Urobilinogen 1.0 Ur Leukocyte Esterase Negative Ur Random Creatinine 158.0 H U Random Total Protein 26.7 H Ur Random Sodium 24 L Ur Random Potassium 32.1 Ur Random Chloride 16 L Ur Random Urea Nitrogn 1334 H 08/03/18 06:56 Sodium 140 Potassium 3.9 Chloride 107 Carbon Dioxide 28 Anion Gap 6 L BUN 19 H Creatinine 1.0 Est GFR (CKD-EPI)AfAm 91.78 Est GFR (CKD-EPI)NonAf 79.19 Random Glucose 88 Calcium 8.4 L Phosphorus Magnesium Vitamin B12 Serum Folate TSH Urine Color Urine Appearance Urine pH Ur Specific [place] Urine Protein Urine Glucose (UA) Urine Ketones Urine Blood Urine Nitrite Urine Bilirubin Urine Urobilinogen Ur Leukocyte Esterase Ur Random Creatinine U Random Total Protein Ur Random Sodium Ur Random Potassium Ur Random Chloride Ur Random Urea Nitrogn Current Medications Generic Name Dose Route Start Last Admin Trade Name Freq PRN Reason Stop Dose Admin Acetaminophen 650 mg 08/01/18 03:25 Tylenol - PO Q4H PRN MODERATE PAIN Acetaminophen 325 mg 08/02/18 00:32 08/03/18 05:11 Tylenol - PO 325 mg Q6H PRN Administration PAIN SCALE 7-10 Aspirin 81 mg 08/01/18 10:00 08/02/18 11:08 Asa - PO 81 mg DAILY [facility]ITZA Administration Atorvastatin Calcium 80 mg 08/01/18 22:00 08/02/18 22:55 Lipitor - PO 80 mg HS MARITZA Administration Clopidogrel Bisulfate 75 mg 08/01/18 10:00 08/02/18 11:08 Plavix - PO 75 mg DAILY [facility]ZA Administration Dronedarone 400 mg 08/01/18 10:00 08/02/18 22:57 Multaq - PO 400 mg BID [facility]ITZA Administration Escitalopram Oxalate 20 mg 08/01/18 10:00 08/02/18 11:08 Lexapro - PO 20 mg DAILY [facility]ITZA Administration Ferrous Sulfate 325 mg 08/02/18 22:00 08/02/18 22:56 Feosol - PO 325 mg BID MARITZA Administration Finasteride 5 mg 08/01/18 10:00 08/02/18 11:08 Proscar - PO 5 mg DAILY [facility] Administration Gabapentin 400 mg 08/01/18 06:00 08/03/18 05:11 Neurontin - PO 400 mg TID [facility]ZA Administration Heparin Sodium (Porcine) 5,000 unit 08/01/18 06:00 08/03/18 05:10 Heparin - SQ 5,000 unit TID [facility] Administration Sodium Chloride 1,000 mls @ 100 mls/hr 08/01/18 03:30 08/03/18 05:50 Normal Saline - IV 100 mls/hr ASDIR MARITZA Administration Isosorbide Mononitrate 30 mg 08/01/18 10:00 08/02/18 11:08 Imdur - PO 30 mg DAILY [facility] Administration Metoprolol Tartrate 100 mg 08/01/18 10:00 08/02/18 22:56 Lopressor - PO 100 mg BID [facility] Administration Oxycodone HCl 5 mg 08/02/18 00:32 08/03/18 05:11 Roxicodone - PO 5 mg Q6H PRN Administration PAIN SCALE 7-10 Pantoprazole Sodium 40 mg 08/01/18 10:00 08/02/18 11:09 Protonix - PO 40 mg DAILY [facility] Administration Rivaroxaban 15 mg 08/01/18 18:00 08/02/18 18:08 Xarelto PO 15 mg DAILY@1800 [facility] Administration Tamsulosin HCl 0.4 mg 08/01/18 08:30 08/02/18 11:08 Flomax - PO 0.4 mg DAILY@0830 [facility] Administration ASSESSMENT AND PLAN: 63 year old male with history of CAD s/p CABG, s/p [place] (07/17, treated at [facility]) s/p PCI/stents, HTN, HLD, Atrial Fibrillation (on Xarelto), Aortic Aneurysm, Depression, BPH, who presented to the ED with bilateral LE pain/cramps , difficulty ambulating, and developed CP in ED. Found to have SHANA. 1. SHANA - resolved Creat down to 1.0 from 3.2 Renal US - no obstruction Cozaar to be resumed. Need to clarify home meds - patient was apparently taking both Torsemide and Lasix at home - will discuss with Cardio which one to resume. 2. Bilateral LE pain/cramping Arterial Duplex - inflow pathology LLE Evaluated by Vascular Surgery - for CT A/P with contrast and runoff ?stenosis L Femoral secondary to recent cardiac cath 07/17. 3. CAD s/p CABG s/p DE s/p PCI/Stents (17 per patient, last 07/17 at [facility]) Episode of CP in ED, Troponin positive (0.21 --> 0.13) Echo - normal LV function and EF. Grade II diastolic dysfunction, pulmonary HTN. Evaluated by Cardiology - no need for acute intervention Continue Aspirin, Plavix, Lopressor, Lipitor, Imdur, Ranexa. 4. Normocytic Anemia - H/H 12/29.3, MCV 88.6 Iron Sat 12% Will supplement with Ferrous Sulfate. B12 - 368, Folate 10. B12 levekls borderline, will supplement Will need further out-patient work-up/follow up given ongoing anti-platelet and anticoagulation agents. No active bleeding currently. 5. HTN - Continue Lopressor, Imdur. Resume ARB. 6. Hyperlipidemia - Continue Lipitor 7. Paroxysmal Atrial Fibrillation - Currently in SR - Discontinue Digoxin, Amiodarine as per Cardio. Continue Multaq, Lopresor, Xarelto 8. Depression - Continue Lexapro 9. BPH - continue Tamsulosin. DVT Px - on Xarelto
[2018-08-03] MEDS: CYANOCOBALAMIN 1,000 MCG TABLET (FP) PO SCH (13:00)
[2018-08-03] MEDS: LOSARTAN POTASSIUM 50 MG TABLET (FP) PO SCH (13:00)
[2018-08-03] MEDS: DOCUSATE SODIUM 100 MG CAPSULE (FP) PO SCH (13:51)
--- NOTE | 2018-08-03 16:20 | PN ---
Physical Exam: SUBJECTIVE: Patient seen and examined at bedside. No acute events overnight. Pt states he still has leg pain, but improved. Walked with PT yesterday. Cande PO diet. Admits to chest pain lasting <10 min this morning that resolved on its own. OBJECTIVE: Vital Signs Temperature 97.8 F 08/03/18 14:00 Pulse Rate 63 08/03/18 14:00 Respiratory Rate 18 08/03/18 06:00 Blood Pressure 133/65 08/03/18 14:00 O2 Sat by Pulse Oximetry (%) 96 08/03/18 09:00 GENERAL: Awake, alert, and fully oriented, in no acute distress. HEAD: Normal with no signs of trauma. EYES: Pupils equal, round and reactive to light, extraocular movements intact EARS, NOSE, THROAT: Moist mucous membranes. LUNGS: Breath sounds equal, clear to auscultation bilaterally. No wheezes, and no crackles. No accessory muscle use. HEART: Regular rate and rhythm, normal S1 and S2 without murmur, rub or gallop. midline sternal scar ABDOMEN: Soft, nontender, not distended. No hepatomegaly or splenomegaly. LOWER EXTREMITIES: 2+ pulses, warm, well-perfused. pain to squeezing of b/l calves; normal hair distribution on lower legs, no erythema, warmth or redness noted. CBC, BMP 08/01/18 05:50 08/03/18 06:56 IMAGING: * Renal/bladder U/S: Unremarkable kidneys b/l. PVR 46cc. B/l atrophic jets identified. * Echo: nl EF, diastolic dysfxn * Arterial duplex: Mod amt of atherosclerotic plaque scattered throughout common and SFA, as well as popliteal and posterior tib arteries b/l. On R side, largely triphasic flow throughout vessels w/o evid of occlusion or HD significant stenosis. On L side, large abnormal monophasic flow throughout vessels. Suggest inflow pathology and CTA or conventional angiography now recommended. * Aorta CTA w/ runoff: pending ASSESSMENT/PLAN: 63 y/o male with a history of CAD with [place] ( 1 month ago at [place]), 17 stents , HTN, HLD, afib, aortic aneurysm, and depression who presents for bilateral leg pain. #B/L lower extremity leg pain; likely 2/2 PVD Cont home med: Gabapentin 400 TID -Percocet 5-325 QD -Arterial duplex noted above; f/u Aorta CTA runoff final results -f/u vasc surg recs -Obtain records from [facility] as pt states he has had multiple recent ultrasounds done in the past (presumably venous) to check for "blood clots"; currently on Xarelto #SHANA; possibly 2/2 multiple diuretic use vs. dehydration. Resolved. -Continue fluids; Cr improved to 1.0 today -Renal U/S noted above; unremarkable. -Clarify with cardio if diuretic can be restarted #Elevated troponins -likely demand in setting of SHANA; Pt has no complaints currently. -Per cardio, cont to trend trops until it peaks. No further cardiac workup needed at this time; likely need outpatient follow up. #CAD; s/p CABG, s/p 17 stent hx - most recent stent 1 month ago Cont home meds: Xarelto 15 QD, Clopidogrel 75 QD, Atorvastatin 80 HS, and Aspirin 81 QD, Lopressor 100 BID, Imdur, Ranexa -EKG with ST depression and t wave inversion, no change from EKG's from [facility] -Per cardio, no need for acute intervention. Will need to discuss with c #Afib; Stable. -Per cardio, d/c Digoxin, amiodarone. May cont Multaq 400 BID, Xarelto 15 QD, Lopressor 100 BID, #HTN- Cont home med: Metoprolol 100 BID, Losartan 50 QD #HLD- Cont home med: Lipitor 80 mg PO HS #BPH- Cont home meds: Finasteride 5 QD and Tamsulosin 0.4 QD #Depression- Cont home med: Escitalopram 20 QD #GERD- Cont home med: Pantoprazole 40 QD #DVT ppx- Xarelto #FEN -NS @ 100 -recheck lytes in AM -Low sodium/diabetic diet Dispo: monitor on tele -Obtain records from [facility] Visit type - Emergency Visit Emergency Visit: Yes ED Registration Date: 07/31/18 Care time: The patient presented to the Emergency Department on the above date and was hospitalized for further evaluation of their emergent condition. - New Patient This patient is new to me today: No - Critical Care Critical Care patient: No
[2018-08-03] MEDS: RIVAROXABAN 15 MG TABLET PO SCH (18:25)
[2018-08-03] MEDS: ATORVASTATIN CA 80 MG TABLET (FP) PO SCH (22:17)
[2018-08-04] MEDS ORDERED: ALBUTEROL SO4 2.5/IPRATROPIUM 0.5 INH SOL 3 ML VIAL.NEB. NEB ONE (02:16)
[2018-08-04] MEDS ORDERED: FUROSEMIDE 40 MG/4 ML INJECTABLE VIAL IVPUSH ONE (02:34)
--- NOTE | 2018-08-04 02:37 | PN ---
Progress Note (short form) - Note Progress Note: Pt. suddenly woke up with shortness of breath. Pt. saturating at 91% but noted to have increased work of breathing and wheezing on lung exam. Temperature of 100.3 noted. CXR ordered and showed increase in congestion per my read. Pt. did not receive any Lasix over the last 48 hours despite being on home Lasix and ? torsemide because of SHANA 2/2 to dehydration, now resolved. IVF stopped, Duonebs ordered and Pt. uptitrated to NRB. IV Lasix 40mg given.
[2018-08-04] MEDS: SODIUM CHLORIDE 1,000 ML IV SCH (03:30)
[2018-08-04] MEDS: ACETAMINOPHEN 325 MG TABLET (FP) PO PRN ×3 (05:40→22:59)
[2018-08-04] MEDS: GABAPENTIN 400 MG CAPSULE (FP) PO SCH ×3 (05:40→22:04)
[2018-08-04] MEDS: HEPARIN NA (PORCINE) 5,000 UNITS/ML 1ML VIAL SQ SCH ×3 (05:40→22:02)
[2018-08-04 09:14] LABS: CALCIUM 8.3 mg/dL (8.5-10.1); CREATININE 1.1 mg/dL (0.55-1.3); MAGNESIUM 1.6 mg/dL (1.8-2.4); PHOSPHOROUS 2.5 mg/dL (2.5-4.9); POTASSIUM 3.4 mmol/L (3.5-5.1)
[2018-08-04] MEDS ORDERED: FUROSEMIDE 40 MG TABLET (FP) PO SCH (10:00)
[2018-08-04] MEDS ORDERED: POTASSIUM CHLORIDE TABS 20 MEQ TABLET.ER (FP) PO ONE (10:10)
[2018-08-04] MEDS ORDERED: MAGNESIUM SULF 50% (8.12 MEQ/2 ML-1 GM VIAL) IVPB ONE (10:26)
--- NOTE | 2018-08-04 10:29 | PN ---
Physical Exam: SUBJECTIVE: Patient seen and examined at bedside. Per nurse, pt spiked fever last night ~102 and given Tylenol. This morning, pt is on nonrebreather and breathing is better. He is seen diaphoretic and complains of chest tightness. Denies abd pain, urinary/bowel symptoms. B/l leg pain is improved. OBJECTIVE: Vital Signs Temperature 98.6 F 08/04/18 09:00 Pulse Rate 73 08/04/18 09:00 Respiratory Rate 20 08/04/18 09:00 Blood Pressure 135/70 08/04/18 09:00 O2 Sat by Pulse Oximetry (%) 100 08/04/18 09:00 GENERAL: Awake, alert, and fully oriented. Diaphoretic, on nonrebreather. HEAD: Normal with no signs of trauma. EYES: Pupils equal, round and reactive to light, extraocular movements intact EARS, NOSE, THROAT: Moist mucous membranes. LUNGS: Decreased air entry HEART: Regular rate and rhythm, normal S1 and S2 without murmur, rub or gallop. midline sternal scar ABDOMEN: Soft, nontender, not distended. No hepatomegaly or splenomegaly. LOWER EXTREMITIES: 2+ pulses, warm, well-perfused. pain to squeezing of b/l calves; normal hair distribution on lower legs, no erythema, warmth or redness noted. SKIN: No ulcers/wounds noted. CBC, BMP 08/01/18 05:50 08/04/18 08:22 Active Medications Acetaminophen (Tylenol -) 650 mg PO Q4H PRN PRN Reason: MODERATE PAIN Last Admin: 08/04/18 05:40 Dose: 650 mg Acetaminophen (Tylenol -) 325 mg PO Q6H PRN PRN Reason: PAIN SCALE 7-10 Last Admin: 08/03/18 18:23 Dose: 325 mg Aspirin (Asa -) 81 mg PO DAILY [facility] Last Admin: 08/03/18 11:10 Dose: 81 mg Atorvastatin Calcium (Lipitor -) 80 mg PO HS [facility] Last Admin: 08/03/18 22:17 Dose: 80 mg Clopidogrel Bisulfate (Plavix -) 75 mg PO DAILY [facility] Last Admin: 08/03/18 11:15 Dose: 75 mg Cyanocobalamin (Vitamin B12 -) 1,000 mcg PO DAILY [facility] Last Admin: 08/03/18 13:00 Dose: 1,000 mcg Docusate Sodium (Colace -) 100 mg PO DAILY [facility] Last Admin: 08/03/18 13:51 Dose: 100 mg Dronedarone (Multaq -) 400 mg PO BID [facility] Last Admin: 08/03/18 22:17 Dose: 400 mg Escitalopram Oxalate (Lexapro -) 20 mg PO DAILY [facility] Last Admin: 08/03/18 11:15 Dose: 20 mg Ferrous Sulfate (Feosol -) 325 mg PO BID [facility] Last Admin: 08/03/18 22:17 Dose: 325 mg Finasteride (Proscar -) 5 mg PO DAILY [facility] Last Admin: 08/03/18 11:05 Dose: 5 mg Furosemide (Lasix -) 40 mg PO DAILY [facility] Gabapentin (Neurontin -) 400 mg PO TID [facility] Last Admin: 08/04/18 05:40 Dose: 400 mg Heparin Sodium (Porcine) (Heparin -) 5,000 unit SQ TID [facility] Last Admin: 08/04/18 05:40 Dose: 5,000 unit Isosorbide Mononitrate (Imdur -) 30 mg PO DAILY [facility] Last Admin: 08/03/18 11:05 Dose: 30 mg Losartan Potassium (Cozaar -) 50 mg PO DAILY [facility] Last Admin: 08/03/18 13:00 Dose: 50 mg Metoprolol Tartrate (Lopressor -) 100 mg PO BID [facility] Last Admin: 08/03/18 22:17 Dose: 100 mg Oxycodone HCl (Roxicodone -) 5 mg PO Q6H PRN PRN Reason: PAIN SCALE 7-10 Last Admin: 08/03/18 18:22 Dose: 5 mg Pantoprazole Sodium (Protonix -) 40 mg PO DAILY [facility] Last Admin: 08/03/18 11:10 Dose: 40 mg Rivaroxaban (Xarelto) 15 mg PO DAILY@1800 [facility] Last Admin: 08/03/18 18:25 Dose: 15 mg Tamsulosin HCl (Flomax -) 0.4 mg PO DAILY@0830 [facility] Last Admin: 08/03/18 10:30 Dose: 0.4 mg IMAGING: * Renal/bladder U/S: Unremarkable kidneys b/l. PVR 46cc. B/l atrophic jets identified. * Echo: nl EF, diastolic dysfxn * Arterial duplex: Mod amt of atherosclerotic plaque scattered throughout common and SFA, as well as popliteal and posterior tib arteries b/l. On R side, largely triphasic flow throughout vessels w/o evid of occlusion or HD significant stenosis. On L side, large abnormal monophasic flow throughout vessels. Suggest inflow pathology and CTA or conventional angiography now recommended. * Aorta CTA w/ runoff (prelim read): Occlusion of distal L SFA, two-vessel runoff on L, mod to severe focal stenosis at distal R SFA, three vessel cutoff on R, tiny b/l pleural effusions. ASSESSMENT/PLAN: 63 y/o male with a history of CAD with [place] ( 1 month ago at [place]), 17 stents , HTN, HLD, afib, aortic aneurysm, and depression who presents for bilateral leg pain. #Fluid Overload -Lasix 40 mg IVP given overnight; will cont Lasix 40 mg PO QD -CXR PA/lat ordered to check for congestive changes/effusions -Monitor pulse ox -on nonrebreather; de-escalate oxygen therapy once pt is stable #Fever; unclear etiology -CXR showed congestion -U/A neg, BCx ordered -Tylenol PRN -Repeat CBC; monitor for signs of possible infection #B/L lower extremity leg pain; likely 2/2 PVD Cont home med: Gabapentin 400 TID -Percocet 5-325 QD -Arterial duplex noted above -Aorta CTA with runoff noted above; occlusion in distal L SFA. F/u vasc recs. -PT eval #SHANA; possibly 2/2 multiple diuretic use vs. dehydration. Resolved. -Cr 1.1 today; no IVf -Renal U/S noted above; unremarkable. -Restarted Lasix 40 PO QD today; monitor Cr #Elevated troponins; Downtrending -likely demand in setting of SHANA; Pt has no complaints currently. -Per cardio, no further cardiac workup needed at this time; will need outpatient follow up. #CAD; s/p CABG, s/p 17 stent hx - most recent stent 1 month ago Cont home meds: Xarelto 15 QD, Clopidogrel 75 QD, Atorvastatin 80 HS, and Aspirin 81 QD, Lopressor 100 BID, Imdur, Ranexa -EKG with ST depression and t wave inversion, no change from EKG's from [place] -Per cardio, no need for acute intervention. #Afib; Stable. -Per cardio, d/c Digoxin, amiodarone. May cont Multaq 400 BID, Xarelto 15 QD, Lopressor 100 BID #HTN- Cont home med: Metoprolol 100 BID, Losartan 50 QD #HLD- Cont home med: Lipitor 80 mg PO HS #BPH- Cont home meds: Finasteride 5 QD and Tamsulosin 0.4 QD #Depression- Cont home med: Escitalopram 20 QD #GERD- Cont home med: Pantoprazole 40 QD #DVT ppx- Xarelto #FEN -no IVf -recheck lytes in AM -Low sodium/cholesterol diet Dispo: monitor on tele -Obtain records from [facility] Visit type - Emergency Visit Emergency Visit: Yes ED Registration Date: 07/31/18 Care time: The patient presented to the Emergency Department on the above date and was hospitalized for further evaluation of their emergent condition. - New Patient This patient is new to me today: Yes Date on this admission: 08/04/18 - Critical Care Critical Care patient: No
--- NOTE | 2018-08-04 10:37 | PN ---
Teaching Attending Note Name of Resident: Crystal Coleman ATTENDING PHYSICIAN STATEMENT I saw and evaluated the patient. I reviewed the resident's note and discussed the case with the resident. I agree with the resident's findings and plan as documented. SUBJECTIVE: Episode of PND overnight with congestion on CXR requiring IV Lasix. No further CP. OBJECTIVE: T max 102.1, Hemodynamically Stable. Last Vital Signs Temp Pulse Resp BP Pulse Ox 98.6 F 73 20 135/70 100 08/04/18 09:00 08/04/18 09:00 08/04/18 09:00 08/04/18 09:00 08/04/18 09:00 Heart - S1, S2, RRR, midline sternotomy scar Lungs - decreased air entry at bases Abdomen - Soft, non-tender. Bowel Sounds normal. Extremities -bilateral calf tenderness, warm, neurovascularly intact LEs. Laboratory Results - last 24 hr 08/02/18 08/04/18 20:00 08:22 Sodium 138 Potassium 3.4 L Chloride 101 Carbon Dioxide 31 Anion Gap 6 L BUN 13 Creatinine 1.1 Est GFR (CKD-EPI)AfAm 81.79 Est GFR (CKD-EPI)NonAf 70.57 Random Glucose 124 H Calcium 8.3 L Phosphorus 2.5 Magnesium 1.6 L Ur Random Potassium 32.1 Current Medications Generic Name Dose Route Start Last Admin Trade Name Freq PRN Reason Stop Dose Admin Acetaminophen 650 mg 08/01/18 03:25 08/04/18 05:40 Tylenol - PO 650 mg Q4H PRN Administration MODERATE PAIN Acetaminophen 325 mg 08/02/18 00:32 08/03/18 18:23 Tylenol - PO 325 mg Q6H PRN Administration PAIN SCALE 7-10 Aspirin 81 mg 08/01/18 10:00 08/03/18 11:10 Asa - PO 81 mg DAILY [facility] Administration Atorvastatin Calcium 80 mg 08/01/18 22:00 08/03/18 22:17 Lipitor - PO 80 mg HS [facility] Administration Clopidogrel Bisulfate 75 mg 08/01/18 10:00 08/03/18 11:15 Plavix - PO 75 mg DAILY [facility] Administration Cyanocobalamin 1,000 mcg 08/03/18 12:15 08/03/18 13:00 Vitamin B12 - PO 1,000 mcg DAILY [facility] Administration Docusate Sodium 100 mg 08/03/18 13:15 08/03/18 13:51 Colace - PO 100 mg DAILY [facility] Administration Dronedarone 400 mg 08/01/18 10:00 08/03/18 22:17 Multaq - PO 400 mg BID [facility] Administration Escitalopram Oxalate 20 mg 08/01/18 10:00 08/03/18 11:15 Lexapro - PO 20 mg DAILY [facility] Administration Ferrous Sulfate 325 mg 08/02/18 22:00 08/03/18 22:17 Feosol - PO 325 mg BID [facility] Administration Finasteride 5 mg 08/01/18 10:00 08/03/18 11:05 Proscar - PO 5 mg DAILY [facility] Administration Furosemide 40 mg 08/04/18 10:00 Lasix - PO DAILY [facility] Gabapentin 400 mg 08/01/18 06:00 08/04/18 05:40 Neurontin - PO 400 mg TID [facility] Administration Heparin Sodium (Porcine) 5,000 unit 08/01/18 06:00 08/04/18 05:40 Heparin - SQ 5,000 unit TID [facility] Administration Isosorbide Mononitrate 30 mg 08/01/18 10:00 08/03/18 11:05 Imdur - PO 30 mg DAILY [facility] Administration Losartan Potassium 50 mg 08/03/18 12:15 08/03/18 13:00 Cozaar - PO 50 mg DAILY [facility] Administration Metoprolol Tartrate 100 mg 08/01/18 10:00 08/03/18 22:17 Lopressor - PO 100 mg BID [facility] Administration Oxycodone HCl 5 mg 08/02/18 00:32 08/03/18 18:22 Roxicodone - PO 5 mg Q6H PRN Administration PAIN SCALE 7-10 Pantoprazole Sodium 40 mg 08/01/18 10:00 08/03/18 11:10 Protonix - PO 40 mg DAILY [facility] Administration Rivaroxaban 15 mg 08/01/18 18:00 08/03/18 18:25 Xarelto PO 15 mg DAILY@1800 [facility] Administration Tamsulosin HCl 0.4 mg 08/01/18 08:30 08/03/18 10:30 Flomax - PO 0.4 mg DAILY@0830 [facility] Administration ASSESSMENT AND PLAN: 63 year old male with history of CAD s/p CABG, s/p [place] (07/17, treated at [facility]) s/p PCI/stents, HTN, HLD, Atrial Fibrillation (on Xarelto), Aortic Aneurysm, Depression, BPH, who presented to the ED with bilateral LE pain/cramps , difficulty ambulating, and developed CP in ED. Found to have SHANA. 1. Fluid overload due to holding Lasix for SHANA and IV hydration Responded well to IV Lasix. Patient on Lasix and Torsemide at home. Resumed on oral Lasix Will discuss with Cardiology re: choice of diuretic. 2. Fever, etiology unclear CXR - congestion Will repeat PA/Lat to exclude Pneumonia Blood Cx requested. Repeat CBC UA neg, asymptomatic. Denies cough, sputum, dysuria, diarrhea, rash. 3. SHANA - resolved Renal US - no obstruction Cozaar resumed. Cardio to pelase adnise regarding home diuretic regimen. 4. Bilateral LE pain/cramping Arterial Duplex - inflow pathology LLE Evaluated by Vascular Surgery - for CT Aorta with contrast and runoff done, report pending since 08/03/18 8am despite multiple attempts to obtain report. Vascular Surgery to follow. 5. CAD s/p CABG s/p LA s/p PCI/Stents (17 per patient, last 07/17 at [facility]) Episode of CP in ED, Troponin positive (0.21 --> 0.13) Echo - normal LV function and EF. Grade II diastolic dysfunction, pulmonary HTN. Evaluated by Cardiology - no need for acute intervention Continue Aspirin, Plavix, Lopressor, Lipitor, Imdur, Ranexa. 6. Normocytic Anemia - H/H 10/31.3, MCV 88.6 Iron Sat 12% Will supplement with Ferrous Sulfate. B12 - 368, Folate 10. B12 levels borderline, will supplement Will need further out-patient work-up/follow up given ongoing anti-platelet and anticoagulation agents. No active bleeding currently. 7. HTN - Continue Lopressor, Imdur. Resume ARB. 8. Hyperlipidemia - Continue Lipitor 9. Paroxysmal Atrial Fibrillation - Currently in SR - Discontinue Digoxin, Amiodarine as per Cardio. Continue Multaq, Lopresor, Xarelto 10. Depression - Continue Lexapro 11. BPH - continue Tamsulosin. 12. Hypokalemia/Hypomagnesemia - will replete. DVT Px - on Xarelto
[2018-08-04] MEDS: TAMSULOSIN HCL 0.4 MG CAP PO SCH (11:12)
[2018-08-04] MEDS: FINASTERIDE 5 MG TABLET (FP) PO SCH (11:13)
[2018-08-04] MEDS: ESCITALOPRAM OXALATE 20 MG TABLET (FP) PO SCH (11:13)
[2018-08-04] MEDS: DOCUSATE SODIUM 100 MG CAPSULE (FP) PO SCH (11:13)
[2018-08-04] MEDS: ISOSORBIDE MONONITRATE 30 MG TAB.SR.24H (FP) PO SCH (11:13)
[2018-08-04] MEDS: FERROUS SO4 325 MG TABLET (FP) PO SCH ×2 (11:13→22:02)
[2018-08-04] MEDS: METOPROLOL TARTRATE 50 MG TABLET (FP) PO SCH ×2 (11:13→22:03)
[2018-08-04] MEDS: DRONEDARONE HCL 400 MG TAB (FP) PO SCH ×2 (11:14→22:04)
[2018-08-04] MEDS: PANTOPRAZOLE 40 MG TABLET (FP) PO SCH (11:14)
[2018-08-04] MEDS: LOSARTAN POTASSIUM 50 MG TABLET (FP) PO SCH (11:14)
[2018-08-04] MEDS: ASPIRIN 81 MG CHEWABLE TABLETS PO SCH (11:14)
[2018-08-04] MEDS: CYANOCOBALAMIN 1,000 MCG TABLET (FP) PO SCH (11:14)
[2018-08-04] MEDS: CLOPIDOGREL BISULFATE 75 MG TABLET (FP) PO SCH (11:16)
[2018-08-04 11:40] LABS: BASO % 0.3 % (0-2.0); EOS % 0.4 % (0-4.5); HEMATOCRIT 33.3 % (35.4-49); HEMOGLOBIN 10.7 GM/dL (11.7-16.9); LYMPH % 9.1 % (8-40); MCH 28.2 pg (25.7-33.7); MEAN CELL VOLUME 88.2 fl (80-96); MEAN PLT VOLUME 9.7 fl (7.5-11.1); MONO % 9.7 % (3.8-10.2); NEUT % 80.5 % (42.8-82.8); PLATELET COUNT 195 K/MM3 (134-434); RBC 3.78 M/mm3 (4.00-5.60); WHITE BLOOD COUNT 10.4 K/mm3 (4.0-10.0)
[2018-08-04] MEDS ORDERED: FUROSEMIDE 40 MG/4 ML INJECTABLE VIAL IVPUSH SCH (14:00)
[2018-08-04] MEDS: oxyCODONE HCL 5 MG TABLET PO PRN ×2 (16:05→22:59)
[2018-08-04] MEDS: RIVAROXABAN 15 MG TABLET PO SCH (17:50)
[2018-08-04] MEDS: ATORVASTATIN CA 80 MG TABLET (FP) PO SCH (22:03)
[2018-08-04] MEDS ORDERED: MELATONIN 5 MG TABLETS PO ONE (22:30)
[2018-08-05] MEDS: HEPARIN NA (PORCINE) 5,000 UNITS/ML 1ML VIAL SQ SCH (05:36)
[2018-08-05] MEDS: GABAPENTIN 400 MG CAPSULE (FP) PO SCH ×2 (05:37→13:26)
[2018-08-05 07:34] LABS: BASO % 0.3 % (0-2.0); EOS % 4.3 % (0-4.5); HEMATOCRIT 32.4 % (35.4-49); HEMOGLOBIN 10.6 GM/dL (11.7-16.9); LYMPH % 10.3 % (8-40); MCH 28.3 pg (25.7-33.7); MCHC 32.6 g/dl (32.0-35.9); MEAN CELL VOLUME 86.7 fl (80-96); MEAN PLT VOLUME 8.9 fl (7.5-11.1); MONO % 12.3 % (3.8-10.2); NEUT % 72.8 % (42.8-82.8); RBC 3.73 M/mm3 (4.00-5.60); RDW 17.6 % (11.9-15.9); WHITE BLOOD COUNT 9.6 K/mm3 (4.0-10.0)
[2018-08-05 08:37] LABS: ALBUMIN 2.7 g/dl (3.4-5.0); BILIRUBIN,TOTAL 1.1 mg/dL (0.2-1); CALCIUM 8.4 mg/dL (8.5-10.1); POTASSIUM 3.8 mmol/L (3.5-5.1); TOT PROT 6.2 g/dl (6.4-8.2)
[2018-08-05] MEDS ORDERED: PT OWN MED DRAWER 7, Y5N ONE (09:15)
[2018-08-05] MEDS: ISOSORBIDE MONONITRATE 30 MG TAB.SR.24H (FP) PO SCH (09:42)
[2018-08-05] MEDS: DRONEDARONE HCL 400 MG TAB (FP) PO SCH (09:42)
[2018-08-05] MEDS: TAMSULOSIN HCL 0.4 MG CAP PO SCH (09:42)
[2018-08-05] MEDS: ESCITALOPRAM OXALATE 20 MG TABLET (FP) PO SCH (09:42)
[2018-08-05] MEDS: PANTOPRAZOLE 40 MG TABLET (FP) PO SCH (09:42)
[2018-08-05] MEDS: CLOPIDOGREL BISULFATE 75 MG TABLET (FP) PO SCH (09:42)
[2018-08-05] MEDS: LOSARTAN POTASSIUM 50 MG TABLET (FP) PO SCH (09:42)
[2018-08-05] MEDS: CYANOCOBALAMIN 1,000 MCG TABLET (FP) PO SCH (09:43)
[2018-08-05] MEDS: FINASTERIDE 5 MG TABLET (FP) PO SCH (09:43)
[2018-08-05] MEDS: ASPIRIN 81 MG CHEWABLE TABLETS PO SCH (09:43)
[2018-08-05] MEDS: FERROUS SO4 325 MG TABLET (FP) PO SCH (09:43)
[2018-08-05] MEDS: DOCUSATE SODIUM 100 MG CAPSULE (FP) PO SCH (09:43)
[2018-08-05] MEDS: METOPROLOL TARTRATE 50 MG TABLET (FP) PO SCH (09:43)
[2018-08-05] MEDS ORDERED: oxyCODONE HCL 5 MG TABLET ONE (09:44)
[2018-08-05] MEDS: oxyCODONE HCL 5 MG TABLET PO PRN (09:45)
[2018-08-05] MEDS: ACETAMINOPHEN 325 MG TABLET (FP) PO PRN ×2 (09:46→13:26)
[2018-08-05] MEDS ORDERED: FUROSEMIDE 40 MG TABLET (FP) PO SCH (10:00)
--- NOTE | 2018-08-05 10:17 | PN ---
Progress Note (short form) - Note Progress Note: VASCULAR SURGERY 63 y/o M w/ PMHx CAD s/p SC 1 month ago at [place], h/o 17 stents in the past, single vessel CABG (2011), HTN, HLD, afib, aortic aneurysm, and depression admitted w/ bilateral leg pain. Reviewed results of CTA with Dr. Cheek. No need for intervention during this hospital admission. Patient instructed to follow-up with Dr. Cheek to schedule out-patient angiogram. Reconsult PRN On behalf of Dr. Cheek, thank you for the opportunity to participate in your patient's care.
[2018-08-05] MEDS ORDERED: LORazepam 1 MG TABLET PO ONE (10:36)
[2018-08-05] MEDS ORDERED: SODIUM CHLORIDE 1,000 ML IV STA (10:36)
[2018-08-05] MEDS ORDERED: BISMUTH SUBSALICYLATE 524 MG/30 ML UD PO ONE (11:00)
[2018-08-05 12:14] LABS: PLATELET COUNT 219 K/MM3 (134-434)
--- NOTE | 2018-08-05 12:25 | EKG ---
Test Reason : Blood Pressure : / mmHG Vent. Rate : 075 BPM Atrial Rate : 075 BPM P-R Int : 156 ms QRS Dur : 100 ms QT Int : 424 ms P-R-T Axes : 033 026 187 degrees QTc Int : 473 ms SINUS RHYTHM WITH PREMATURE ATRIAL COMPLEXES LEFT VENTRICULAR HYPERTROPHY WITH REPOLARIZATION ABNORMALITY NONSPECIFIC ST ABNORMALITY Confirmed by OJ CASIANO MD ([id number] on 08/05/2018 12:25:11 PM Referred By: Sai Flores Confirmed By:OJ CASIANO MD
--- NOTE | 2018-08-05 13:25 | PN ---
Teaching Attending Note Name of Resident: Crystal Coleman ATTENDING PHYSICIAN STATEMENT I saw and evaluated the patient. I reviewed the resident's note and discussed the case with the resident. I agree with the resident's findings and plan as documented. SUBJECTIVE: No further episodes of chest pain or SOB. OBJECTIVE: Afebrile, Hemodynamically Stable. Last Vital Signs Temp Pulse Resp BP Pulse Ox 99.0 F 69 20 145/65 95 08/05/18 05:38 08/05/18 05:38 08/05/18 09:00 08/05/18 05:38 08/05/18 09:00 Heart - S1, S2, RRR, midline sternotomy scar Lungs - decreased air entry at bases Abdomen - Soft, non-tender. Bowel Sounds normal. Extremities - bilateral calf tenderness, warm, neurovascularly intact LEs. Laboratory Results - last 24 hr 08/05/18 08/05/18 07:03 07:03 WBC 9.6 RBC 3.73 L Hgb 10.6 L Hct 32.4 L MCV 86.7 MCH 28.3 MCHC 32.6 RDW 17.6 H Plt Count 219 MPV 8.9 Absolute Neuts (auto) 7.0 Neutrophils % 72.8 Lymphocytes % 10.3 Monocytes % 12.3 H Eosinophils % 4.3 D Basophils % 0.3 Nucleated RBC % 0 Sodium 139 Potassium 3.8 Chloride 101 Carbon Dioxide 31 Anion Gap 8 BUN 13 Creatinine 1.0 Est GFR (CKD-EPI)AfAm 91.78 Est GFR (CKD-EPI)NonAf 79.19 Random Glucose 91 Calcium 8.4 L Total Bilirubin 1.1 H AST 12 L ALT 15 Alkaline Phosphatase 88 Total Protein 6.2 L Albumin 2.7 L Current Medications Generic Name Dose Route Start Last Admin Trade Name Freq PRN Reason Stop Dose Admin Acetaminophen 650 mg 08/01/18 03:25 08/04/18 05:40 Tylenol - PO 650 mg Q4H PRN Administration MODERATE PAIN Acetaminophen 325 mg 08/02/18 00:32 08/05/18 09:46 Tylenol - PO 325 mg Q6H PRN Administration PAIN SCALE 7-10 Aspirin 81 mg 08/01/18 10:00 08/05/18 09:43 Asa - PO 81 mg DAILY MARITZA Administration Atorvastatin Calcium 80 mg 08/01/18 22:00 08/04/18 22:03 Lipitor - PO 80 mg HS MARITZA Administration Clopidogrel Bisulfate 75 mg 08/01/18 10:00 08/05/18 09:42 Plavix - PO 75 mg DAILY MARITZA Administration Cyanocobalamin 1,000 mcg 08/03/18 12:15 08/05/18 09:43 Vitamin B12 - PO 1,000 mcg DAILY MARITZA Administration Docusate Sodium 100 mg 08/03/18 13:15 08/05/18 09:43 Colace - PO 100 mg DAILY MARITZA Administration Dronedarone 400 mg 08/01/18 10:00 08/05/18 09:42 Multaq - PO 400 mg BID MARITZA Administration Escitalopram Oxalate 20 mg 08/01/18 10:00 08/05/18 09:42 Lexapro - PO 20 mg DAILY MARITZA Administration Ferrous Sulfate 325 mg 08/02/18 22:00 08/05/18 09:43 Feosol - PO 325 mg BID MARITZA Administration Finasteride 5 mg 08/01/18 10:00 08/05/18 09:43 Proscar - PO 5 mg DAILY MARITZA Administration Furosemide 40 mg 08/05/18 10:00 08/05/18 09:42 Lasix - PO 40 mg DAILY MARITZA Administration Gabapentin 400 mg 08/01/18 06:00 08/05/18 05:37 Neurontin - PO 400 mg TID MARITZA Administration Isosorbide Mononitrate 30 mg 08/01/18 10:00 08/05/18 09:42 Imdur - PO 30 mg DAILY MARITZA Administration Losartan Potassium 50 mg 08/03/18 12:15 08/05/18 09:42 Cozaar - PO 50 mg DAILY MARITZA Administration Metoprolol Tartrate 100 mg 08/01/18 10:00 08/05/18 09:43 Lopressor - PO 100 mg BID MARITZA Administration Pantoprazole Sodium 40 mg 08/01/18 10:00 08/05/18 09:42 Protonix - PO 40 mg DAILY MARITZA Administration Rivaroxaban 15 mg 08/01/18 18:00 08/04/18 17:50 Xarelto PO 15 mg DAILY@1800 MARITZA Administration Tamsulosin HCl 0.4 mg 08/01/18 08:30 08/05/18 09:42 Flomax - PO 0.4 mg DAILY@0830 MARITZA Administration ASSESSMENT AND PLAN: 63 year old male with history of CAD s/p CABG, s/p [place] (07/17, treated at [facility]) s/p PCI/stents, HTN, HLD, Atrial Fibrillation (on Xarelto), Aortic Aneurysm, Depression, BPH, who presented to the ED with bilateral LE pain/cramps , difficulty ambulating, and developed CP in ED. Found to have SHANA. 1. Fluid overload due to holding Lasix for SHANA and IV hydration CXR - bibasal effusions, congestion Responded well to IV Lasix. Patient on Lasix and Torsemide at home. Resumed on oral Lasix. Torsemide held ( hemant given SHANA on presentation) 2. Fever, etiology unclear, resolved. CXR - congestion No pneumonia on CXR Blood Cx rnegative UA neg, asymptomatic. Denies cough, sputum, dysuria, diarrhea, rash. 3. SHANA - resolved Renal US - no obstruction Cozaar and Lasix resumed. 4. Bilateral LE pain/cramping sec to PAD Arterial Duplex - inflow pathology LLE Evaluated by Vascular Surgery - CT Aorta with contrast and runoff - multifiocal disease No need for in-patient intervention as per Vascular Surgery - for out-patient follow up with Dr. Cheek. On Aspirin, Xarelto 5. CAD s/p CABG s/p TN s/p PCI/Stents (17 per patient, last 07/17 at [facility]) Episode of CP in ED, Troponin positive (0.21 --> 0.13) Echo - normal LV function and EF. Grade II diastolic dysfunction, pulmonary HTN. Evaluated by Cardiology - no need for acute intervention Continue Aspirin, Plavix, Lopressor, Lipitor, Imdur, Ranexa. 6. Normocytic Anemia - H/H 31.3, MCV 88.6 Iron Sat 12% Supplement with Ferrous Sulfate. B12 - 368, Folate 10. B12 levels borderline, will supplement Will need further out-patient work-up/follow up given ongoing anti-platelet and anticoagulation agents. No active bleeding currently. 7. HTN - Continue Lopressor, Imdur. Resume ARB. 8. Hyperlipidemia - Continue Lipitor 9. Paroxysmal Atrial Fibrillation - Currently in SR - Discontinue Digoxin, Amiodarine as per Cardio. Continue Multaq, Lopresor, Xarelto 10. Depression - Continue Lexapro 11. BPH - continue Tamsulosin. 12. Hypokalemia/Hypomagnesemia - repleted Medically Stable for discharge.
[2018-08-05] MEDS ORDERED: FUROSEMIDE 40 MG/4 ML INJECTABLE VIAL IVPUSH ONE (13:28)
--- NOTE | 2018-08-05 14:36 | DS ---
Physical Exam: SUBJECTIVE: Patient seen and examined at bedside. No acute events overnight. OBJECTIVE: Vital Signs Period Temp Pulse Resp BP Sys/Plummer Pulse Ox Last 24 Hr 98.3 F-99.0 F 65-71 20-20 124-145/64-68 95-95 PHYSICAL EXAM GENERAL: Awake, alert, and fully oriented. Well-appearing, comfortable. HEAD: Normal with no signs of trauma. EYES: Pupils equal, round and reactive to light, extraocular movements intact EARS, NOSE, THROAT: Moist mucous membranes. LUNGS: Decreased air entry HEART: Regular rate and rhythm, normal S1 and S2 without murmur, rub or gallop. midline sternal scar ABDOMEN: Soft, nontender, not distended. No hepatomegaly or splenomegaly. LOWER EXTREMITIES: 2+ pulses, warm, well-perfused. pain to squeezing of b/l calves; normal hair distribution on lower legs, no erythema, warmth or redness noted. SKIN: No ulcers/wounds noted. LABS Laboratory Results - last 24 hr 08/05/18 08/05/18 07:03 07:03 WBC 9.6 RBC 3.73 L Hgb 10.6 L Hct 32.4 L MCV 86.7 MCH 28.3 MCHC 32.6 RDW 17.6 H Plt Count 219 MPV 8.9 Absolute Neuts (auto) 7.0 Neutrophils % 72.8 Lymphocytes % 10.3 Monocytes % 12.3 H Eosinophils % 4.3 D Basophils % 0.3 Nucleated RBC % 0 Sodium 139 Potassium 3.8 Chloride 101 Carbon Dioxide 31 Anion Gap 8 BUN 13 Creatinine 1.0 Est GFR (CKD-EPI)AfAm 91.78 Est GFR (CKD-EPI)NonAf 79.19 Random Glucose 91 Calcium 8.4 L Total Bilirubin 1.1 H AST 12 L ALT 15 Alkaline Phosphatase 88 Total Protein 6.2 L Albumin 2.7 L HOSPITAL COURSE: Date of Admission:07/31/18 IMAGING: * Renal/bladder U/S: Unremarkable kidneys b/l. PVR 46cc. B/l atrophic jets identified. * Echo: nl EF, diastolic dysfxn * Arterial duplex: Mod amt of atherosclerotic plaque scattered throughout common and SFA, as well as popliteal and posterior tib arteries b/l. On R side, largely triphasic flow throughout vessels w/o evid of occlusion or HD significant stenosis. On L side, large abnormal monophasic flow throughout vessels. Suggest inflow pathology and CTA or conventional angiography now recommended. * Aorta CTA w/ runoff (prelim read): Occlusion of distal L SFA, two-vessel runoff on L, mod to severe focal stenosis at distal R SFA, three vessel cutoff on R, tiny b/l pleural effusions. 63M with a history of CAD with RI (1 month ago at [facility]), 17 stents, HTN, HLD , afib, aortic aneurysm, and depression presented with bilateral leg pain as well as SHANA. Lab work showed Cr of 3.2 and renal u/s was unremarkable. Arterial duplex showed atherosclerotic plaque throughout common and SFA as well as popliteal and posterior tib arteries on L side. Aorta CTA with runoff was done ( results noted above) that showed mod to severe focal stenosis at distal R SFA, occlusion of distal L SFA, two-vessel runoff on L, and three vessel runoff on R. As a result, vasc surg was consulted. Upon vasc eval, no emergent intervention was needed this hospitalization. During hospital stay, pt also complained of chest pain in the ED. He was evaluated by cardio with recommendation to discontinue taking his home meds digoxin, amiodarone, and Clonidine as pt had been taking multiple redundant medications. An echo was done that showed normal EF and diastolic dysfunction. No emergent cardiac intervention was needed during this admission. Pt's hospital stay was complicated by fever of 102 overnight as well as shortness of breath. He was given Lasix IVP, Duonebs, and Tylenol. CXR was done that showed congestive changes. Blood cultures were done that were neg, and pt was started back on Lasix 40 mg. Pt's symptoms remained stable during duration of hospital admission and kidney function improved. He was discharged home with proper medication regimen and advised to follow up with his PCP, policy intern, and vascular surgeon. Date of Discharge: 08/05/18 Minutes to complete discharge: 35 Discharge Summary Reason For Visit: ACUTE KIDNEY INJURY,LEFT VENTRICULAR HYPERTROPHY Current Active Problems Anemia (Acute) Atrial fibrillation (Chronic) BPH (benign prostatic hyperplasia) (Chronic) HTN (hypertension) (Chronic) Hx of CABG (Chronic) Hyperlipidemia (Chronic) PAD (peripheral artery disease) (Chronic) Condition: Improved - Instructions Diet, Activity, Other Instructions: You were seen in the hospital for complaints of leg pain. You had an arterial ultrasound of both your legs and evaluated by the vascular surgeon. A CT scan of your blood vessels in your pelvis was done that showed an occlusion of your left superficial femoral artery in your left leg as well as stenosis (narrowing of the artery) in your common femoral artery. You were evaluated by a vascular surgeon with no need for immediately intervention to be done during this admission. Additionally, you complained of chest pain during your hospital stay. You were seen by a policy intern with no need for emergent cardiac intervention at this time. MEDICATIONS We have made several adjustments to your medication regimen. Please take the following: Please STOP taking Digoxin, Amiodarone, and Clonidine. Please START taking Lasix 40 mg once a day by mouth. Do not take torsemide. Please START taking Vitamin B12 1000 mcg once a day by mouth. Please START taking Colace 100 mg once a day by mouth. Please START taking Ferrous Sulfate 325 mg twice a day by mouth. Please continue taking Multaq 400 mg twice a day by mouth. Please continue taking Xarelto, Plavix, and Aspirin as directed. You may continue taking the rest of your medications as prescribed. FOLLOW UP Please follow up with your primary care physician, Dr. Thakkar within 1 week. Please follow up with your policy intern, Dr. Jose Walters within 1 week. Please follow up with your vascular surgeon, Dr. Cheek, within 1 week. You will likely need to have an outpatient angiogram. If you follow continue to experience worsening leg pain, chest pain, shortness of breath or other associated symptoms, please proceed to your nearest emergency room immediately. Referrals: Dr. JESSIE Thakkar [Other] - 1 Week Jose Walters MD [Other] - 1 Week Ghanshyam Cheek DO [Staff Physician] - 1 Week Disposition: HOME - Home Medications Comprehensive Discharge Medication List: Ambulatory Orders Aspirin 81 mg PO DAILY 08/01/18 Atorvastatin Ca [Lipitor] 80 mg PO DAILY 08/01/18 Clopidogrel Bisulfate [Clopidogrel] 75 mg PO DAILY 08/01/18 Dronedarone HCl [Multaq -] 400 mg PO BID 08/01/18 Escitalopram Oxalate [Lexapro -] 20 mg PO DAILY 08/01/18 Finasteride 5 mg PO DAILY 08/01/18 Gabapentin 400 mg PO TID 08/01/18 Isosorbide Mononitrate [Isosorbide Mononitrate ER] 30 mg PO DAILY 08/01/18 Losartan Potassium 50 mg PO DAILY 08/01/18 Metoprolol Tartrate 100 mg PO BID 08/01/18 Oxycodone HCl/Acetaminophen [Percocet 5-325 mg Tablet] 1 tab PO Q6H 08/01/18 Pantoprazole Sodium [Protonix] 40 mg PO DAILY 08/01/18 Ranolazine [Ranexa] 500 mg PO DAILY 08/01/18 Rivaroxaban [Xarelto] 20 mg PO DAILY 08/01/18 Tamsulosin HCl [Flomax -] 0.4 mg PO DAILY 08/01/18 Furosemide 40 mg PO DAILY 08/02/18 Cyanocobalamin [Vitamin B12 -] 1,000 mcg PO DAILY #30 tablet 08/05/18 Docusate Sodium [Colace -] 100 mg PO DAILY #30 capsule 08/05/18 Ferrous Sulfate [Feosol] 325 mg PO BID #60 tab 08/05/18 This patient is new to me today: No Emergency Visit: Yes ED Registration Date: 07/31/18 Care time: The patient presented to the Emergency Department on the above date and was hospitalized for further evaluation of their emergent condition. Critical Care patient: No - Discharge Referral Referred to [facility] No
[2018-08-05 16:28] VITALS: BP 122/68; PULSE 68; TEMP 98.9
--- NOTE | 2018-08-05 16:41 | PN ---
Progress Note, Physician Chief Complaint: Pt A&Ox3;asymptomatic History of Present Illness: The patient is a 63-year-old male with a past medical history significant for CAD, GA (a month ago, treated at [facility], on Xarelto and baby ASA), s/ p PCI and stent (?), presents to the emergency department with bilateral leg pain and increased fatigue. The patient presents with 2 months of bilateral leg pain, left greater than right. The patient reports the pain has worsened in the last couple of day, associated with swelling. The patient also states hes been having 2 days of increased fatigue, worse with exertion. The patient reports additional complain of left-sided chest and shoulder pain. Denies fever or chills. The patient is a poor historian. Allergies: Penicillins Social history: The patient reports hes currently living in [place], . The patient reports he gets his medication from the clinic. Former smoker. Non-domicile. - - Current Medication List Current Medications: Active Medications Acetaminophen (Tylenol -) 650 mg PO Q4H PRN PRN Reason: MODERATE PAIN Last Admin: 08/05/18 13:26 Dose: 650 mg Acetaminophen (Tylenol -) 325 mg PO Q6H PRN PRN Reason: PAIN SCALE 7-10 Last Admin: 08/05/18 09:46 Dose: 325 mg Aspirin (Asa -) 81 mg PO DAILY [facility] Last Admin: 08/05/18 09:43 Dose: 81 mg Atorvastatin Calcium (Lipitor -) 80 mg PO HS [facility] Last Admin: 08/04/18 22:03 Dose: 80 mg Clopidogrel Bisulfate (Plavix -) 75 mg PO DAILY [facility] Last Admin: 08/05/18 09:42 Dose: 75 mg Cyanocobalamin (Vitamin B12 -) 1,000 mcg PO DAILY [facility] Last Admin: 08/05/18 09:43 Dose: 1,000 mcg Docusate Sodium (Colace -) 100 mg PO DAILY [facility] Last Admin: 08/05/18 09:43 Dose: 100 mg Dronedarone (Multaq -) 400 mg PO BID [facility] Last Admin: 08/05/18 09:42 Dose: 400 mg Escitalopram Oxalate (Lexapro -) 20 mg PO DAILY [facility] Last Admin: 08/05/18 09:42 Dose: 20 mg Ferrous Sulfate (Feosol -) 325 mg PO BID [facility] Last Admin: 08/05/18 09:43 Dose: 325 mg Finasteride (Proscar -) 5 mg PO DAILY [facility] Last Admin: 08/05/18 09:43 Dose: 5 mg Furosemide (Lasix -) 40 mg PO DAILY [facility] Last Admin: 08/05/18 09:42 Dose: 40 mg Gabapentin (Neurontin -) 400 mg PO TID [facility] Last Admin: 08/05/18 13:26 Dose: 400 mg Isosorbide Mononitrate (Imdur -) 30 mg PO DAILY [facility] Last Admin: 08/05/18 09:42 Dose: 30 mg Losartan Potassium (Cozaar -) 50 mg PO DAILY [facility] Last Admin: 08/05/18 09:42 Dose: 50 mg Metoprolol Tartrate (Lopressor -) 100 mg PO BID [facility] Last Admin: 08/05/18 09:43 Dose: 100 mg Pantoprazole Sodium (Protonix -) 40 mg PO DAILY [facility] Last Admin: 08/05/18 09:42 Dose: 40 mg Rivaroxaban (Xarelto) 15 mg PO DAILY@1800 [facility] Last Admin: 08/04/18 17:50 Dose: 15 mg Tamsulosin HCl (Flomax -) 0.4 mg PO DAILY@0830 [facility] Last Admin: 08/05/18 09:42 Dose: 0.4 mg - Objective Vital Signs: Vital Signs Temperature 98.9 F 08/05/18 14:00 Pulse Rate 68 08/05/18 14:00 Respiratory Rate 18 08/05/18 14:00 Blood Pressure 122/68 08/05/18 14:00 O2 Sat by Pulse Oximetry (%) 95 08/05/18 09:00 Constitutional: Yes: Calm Eyes: Yes: WNL HENT: Yes: WNL Neck: Yes: WNL Cardiovascular: Yes: Regular Rate and Rhythm, S1, S2 Respiratory: Yes: WNL Gastrointestinal: Yes: Normal Bowel Sounds ...Rectal Exam: Yes: Deferred Genitourinary: No: Anuria Musculoskeletal: Yes: Muscle Weakness Extremities: Yes: Cool Edema: No Peripheral Pulses WNL: Yes Labs: CBC, BMP 08/05/18 07:03 08/05/18 07:03 INR, PTT INR 1.51 (0.83-1.09) H 07/31/18 21:45 Abnormal Lab Results 08/05/18 08/05/18 07:03 07:03 RBC 3.73 L Hgb 10.6 L Hct 32.4 L RDW 17.6 H Monocytes % 12.3 H Calcium 8.4 L Total Bilirubin 1.1 H AST 12 L Total Protein 6.2 L Albumin 2.7 L - ....Imaging Chest X-ray: Image Reviewed (small pleural effusions) EKG: Image Reviewed (NSR; LVH) Problem List - Problems (1) Acute on chronic diastolic CHF (congestive heart failure) Assessment/Plan: Pt has a long list of medications. He says he is taking all of them. However, pt has different regimens of medication depending on who he sees. He has not seen Dr. Walters, the [place] road crew member who pt says knows him best, for more than a year. He has had medications changed because of insurance problems. Plan: Stopped amiodarone (pt says he was taking it only because he could not afford Multaq; now that his insurance covers the latter, he is taking it again. LVEF is WNL). Stopped digoxin (pt is on both Multaq and metoprolol ER; he has also been taking amiodarone). Gradually decrease and discontinue clonidine (pt is also on metoprolol ER). On furosemide. F/u BUN/Cr, electrolytes, Is and Os, daily weight. Code(s): I50.33 - ACUTE ON CHRONIC DIASTOLIC (CONGESTIVE) HEART FAILURE (2) Old myocardial infarct Code(s): I25.2 - OLD MYOCARDIAL INFARCTION (3) Hx of CABG Assessment/Plan: reportedly "one vessel diseasse"; CABG done about 5 yrs ago. F/u records. Pt reports having had 8 stents prior to CABG, and "8 or 9 more" since then, the most recent reportedly a month ago at [facility] when he was having an GA). Code(s): Z95.1 - PRESENCE OF AORTOCORONARY BYPASS GRAFT (4) Anemia Code(s): D64.9 - ANEMIA, UNSPECIFIED (5) HTN (hypertension) Code(s): I10 - ESSENTIAL (PRIMARY) HYPERTENSION (6) Hyperlipidemia Code(s): E78.5 - HYPERLIPIDEMIA, UNSPECIFIED (7) Atrial fibrillation Assessment/Plan: On metoprlol ER. On Multaq. D/c amiodarone D/c digoxin. Continue rivaroxaban for anticoagulation. (also on Plavix and ASA; had "GA" and coronary stent at [facility] a month ago; f/u records). Recent study indicates efficacy of stopping ASA and continuing clopidogrel + apixaban (rivaroxaban not involved in this trial--class effect not known) when pt has AF + PCI; less bleeding, and similar stent protection. However, this must be individualized, and if the pt is at high risk for a thrombotic event ( as this pt's history indicates) and relatively low risk for bleed, triple therapy may still be indicated. Code(s): I48.91 - UNSPECIFIED ATRIAL FIBRILLATION (8) BPH (benign prostatic hyperplasia) Code(s): N40.0 - BENIGN PROSTATIC HYPERPLASIA WITHOUT LOWER URINRY TRACT SYMP (9) PAD (peripheral artery disease) Code(s): I73.9 - PERIPHERAL VASCULAR DISEASE, UNSPECIFIED
--- NOTE | 2018-08-05 16:50 | PN ---
Progress Note, Physician Chief Complaint: Pt A&Ox3; no chest p;ain or dyspnea.NO palpitations. - Current Medication List Current Medications: Active Medications Acetaminophen (Tylenol -) 650 mg PO Q4H PRN PRN Reason: MODERATE PAIN Last Admin: 08/05/18 13:26 Dose: 650 mg Acetaminophen (Tylenol -) 325 mg PO Q6H PRN PRN Reason: PAIN SCALE 7-10 Last Admin: 08/05/18 09:46 Dose: 325 mg Aspirin (Asa -) 81 mg PO DAILY [facility] Last Admin: 08/05/18 09:43 Dose: 81 mg Atorvastatin Calcium (Lipitor -) 80 mg PO HS [facility] Last Admin: 08/04/18 22:03 Dose: 80 mg Clopidogrel Bisulfate (Plavix -) 75 mg PO DAILY [facility] Last Admin: 08/05/18 09:42 Dose: 75 mg Cyanocobalamin (Vitamin B12 -) 1,000 mcg PO DAILY [facility] Last Admin: 08/05/18 09:43 Dose: 1,000 mcg Docusate Sodium (Colace -) 100 mg PO DAILY [facility] Last Admin: 08/05/18 09:43 Dose: 100 mg Dronedarone (Multaq -) 400 mg PO BID [facility] Last Admin: 08/05/18 09:42 Dose: 400 mg Escitalopram Oxalate (Lexapro -) 20 mg PO DAILY [facility] Last Admin: 08/05/18 09:42 Dose: 20 mg Ferrous Sulfate (Feosol -) 325 mg PO BID [facility] Last Admin: 08/05/18 09:43 Dose: 325 mg Finasteride (Proscar -) 5 mg PO DAILY [facility] Last Admin: 08/05/18 09:43 Dose: 5 mg Furosemide (Lasix -) 40 mg PO DAILY [facility] Last Admin: 08/05/18 09:42 Dose: 40 mg Gabapentin (Neurontin -) 400 mg PO TID [facility] Last Admin: 08/05/18 13:26 Dose: 400 mg Isosorbide Mononitrate (Imdur -) 30 mg PO DAILY [facility] Last Admin: 08/05/18 09:42 Dose: 30 mg Losartan Potassium (Cozaar -) 50 mg PO DAILY [facility] Last Admin: 08/05/18 09:42 Dose: 50 mg Metoprolol Tartrate (Lopressor -) 100 mg PO BID [facility] Last Admin: 06/07/19 09:43 Dose: 100 mg Pantoprazole Sodium (Protonix -) 40 mg PO DAILY [facility] Last Admin: 08/05/18 09:42 Dose: 40 mg Rivaroxaban (Xarelto) 15 mg PO DAILY@1800 [facility] Last Admin: 08/04/18 17:50 Dose: 15 mg Tamsulosin HCl (Flomax -) 0.4 mg PO DAILY@0830 [facility] Last Admin: 08/05/18 09:42 Dose: 0.4 mg - Objective Vital Signs: Vital Signs Temperature 98.9 F 08/05/18 14:00 Pulse Rate 68 08/05/18 14:00 Respiratory Rate 18 08/05/18 14:00 Blood Pressure 122/68 08/05/18 14:00 O2 Sat by Pulse Oximetry (%) 95 08/05/18 09:00 Labs: CBC, BMP 08/05/18 07:03 08/05/18 07:03 INR, PTT INR 1.51 (0.83-1.09) H 07/31/18 21:45 Problem List - Problems (1) Acute on chronic diastolic CHF (congestive heart failure) Code(s): I50.33 - ACUTE ON CHRONIC DIASTOLIC (CONGESTIVE) HEART FAILURE (2) Old myocardial infarct Code(s): I25.2 - OLD MYOCARDIAL INFARCTION (3) Hx of CABG Code(s): Z95.1 - PRESENCE OF AORTOCORONARY BYPASS GRAFT (4) Anemia Code(s): D64.9 - ANEMIA, UNSPECIFIED (5) HTN (hypertension) Code(s): I10 - ESSENTIAL (PRIMARY) HYPERTENSION (6) Hyperlipidemia Code(s): E78.5 - HYPERLIPIDEMIA, UNSPECIFIED (7) Atrial fibrillation Code(s): I48.91 - UNSPECIFIED ATRIAL FIBRILLATION (8) BPH (benign prostatic hyperplasia) Code(s): N40.0 - BENIGN PROSTATIC HYPERPLASIA WITHOUT LOWER URINRY TRACT SYMP (9) PAD (peripheral artery disease) Code(s): I73.9 - PERIPHERAL VASCULAR DISEASE, UNSPECIFIED
[2018-08-05] MEDS: RIVAROXABAN 15 MG TABLET PO SCH (17:00)
== END 2018-08-05 17:43 | disposition home or self-care (01) | DRG 469 ==
LOC: JER 20:03 → JERBED 23:51 → J4W 08-01 18:57
PROVIDERS: ADMIT Internal Medicine
DX: N17.9 Acute kidney failure, unspecified (principal); I25.10 Atherosclerotic heart disease of native coronary artery without angina pectoris; I25.2 Old myocardial infarction; E78.5 Hyperlipidemia, unspecified; I95.9 Hypotension, unspecified; E87.6 Hypokalemia; E83.42 Hypomagnesemia; I51.7 Cardiomegaly; N40.0 Benign prostatic hyperplasia without lower urinary tract symptoms; F32.9 Major depressive disorder, single episode, unspecified; I72.9 Aneurysm of unspecified site; K21.9 Gastro-esophageal reflux disease without esophagitis; I50.33 Acute on chronic diastolic (congestive) heart failure; I71.9 Aortic aneurysm of unspecified site, without rupture; D63.8 Anemia in other chronic diseases classified elsewhere; E87.70 Fluid overload, unspecified; E66.9 Obesity, unspecified; Z68.35 Body mass index [BMI] 35.0-35.9, adult; I73.9 Peripheral vascular disease, unspecified; I21.3 ST elevation (STEMI) myocardial infarction of unspecified site; R50.9 Fever, unspecified; M51.26 Other intervertebral disc displacement, lumbar region; I48.0 Paroxysmal atrial fibrillation; Z87.891 Personal history of nicotine dependence; Z91.14 Patient's other noncompliance with medication regimen; Z95.1 Presence of aortocoronary bypass graft; Z95.5 Presence of coronary angioplasty implant and graft; Z88.0 Allergy status to penicillin
CPT/HCPCS: 36415; 71045-TC-FY; 71046-TC-FY; 75635-TC; 76775-TC; 76856-TC; 80048; 80053; 80061; 80162; 81003; 82436; 82550; 82553; 82565; 82607; 82728; 82746; 83540; 83550; 83721; 83735; 83880; 84100; 84133; 84156; 84300; 84443; 84484; 84540; 85025; 85610; 87040; 93005; 93010; 93306-TC; 93925-TC; 94010; 97116-GP; 97161-GP; 99284-25; J0131; J1644; J7030

== ENCOUNTER 2018-12-04 04:29 | Inpatient (IN) | payer OTHER ==
[2018-12-04] MEDS ORDERED: METOPROLOL TARTRATE 50 MG TABLET (FP) PO ONE (04:49)
[2018-12-04] MEDS ORDERED: LOSARTAN POTASSIUM 50 MG TABLET (FP) PO ONE (04:50)
--- NOTE | 2018-12-04 04:50 | PDOC ---
History of Present Illness - General Chief Complaint: Blood Pressure Problem Stated Complaint: ELEVATED BLOOD PRESSURE Time Seen by Provider: 12/04/18 04:50 - History of Present Illness Initial Comments: 12/04/18 05:00 The patient is a 63 y/o male with a PMH of [place] (September 2018, s/p stenting x 17 @ [facility]), CHF, HTN, AFib (s/p ablation) Aortic Aneursym presents to our ED presents to our ED c/o 5 day h/o cough, congestion and shortness of breath. Cough is productive (yellowish sputum) and patient reports worsening NELSON over the past 5 days. No active CP, no orthopnea, no lower extremity swelling. States he is undomiciled and living in a alf where some of the residents have been brought to the hospital with similar symptoms. The patient denies: headache, changes from baseline blurry vision abdominal pain , vomiting, diarrhea/constipation,dysuria/hematuria, numbness/tingling. Surgical: CABG, Cardiac Stent x17 Allergy: Penicillin [facility] [place] [facility]: [place] As per EMR, patient evaluated in our ED in 07/2018 for CP, and B/L LE pain. Arterial Duplex showed atherosclerotic plaque throughout common and SFA as well as popliteal and posterior tib arteries on L side. Aorta CTA with runoff was done (results noted above) that showed mod to severe focal stenosis at distal R SFA, occlusion of distal L SFA, two-vessel runoff on L, and three vessel runoff on R. EF showed normal EF and diastolic dysfunction. As per EMR, patient's MT was in 06/2018, no 09/2018. Past History - Past Medical History Allergies/Adverse Reactions: Allergies Allergy/AdvReac Type Severity Reaction Status Date / Time Penicillins Allergy Verified 12/04/18 04:33 Home Medications: Ambulatory Orders Aspirin 81 mg PO DAILY 08/01/18 Atorvastatin Ca [Lipitor] 80 mg PO DAILY 08/01/18 Clopidogrel Bisulfate [Clopidogrel] 75 mg PO DAILY 08/01/18 Dronedarone HCl [Multaq -] 400 mg PO BID 08/01/18 Escitalopram Oxalate [Lexapro -] 20 mg PO DAILY 08/01/18 Finasteride 5 mg PO DAILY 08/01/18 Gabapentin 400 mg PO TID 08/01/18 Isosorbide Mononitrate [Isosorbide Mononitrate ER] 30 mg PO DAILY 08/01/18 Losartan Potassium 50 mg PO DAILY 08/01/18 Metoprolol Tartrate 100 mg PO BID 08/01/18 Oxycodone HCl/Acetaminophen [Percocet 5-325 mg Tablet] 1 tab PO Q6H 08/01/18 Pantoprazole Sodium [Protonix] 40 mg PO DAILY 08/01/18 Ranolazine [Ranexa] 500 mg PO DAILY 08/01/18 Rivaroxaban [Xarelto] 20 mg PO DAILY 08/01/18 Tamsulosin HCl [Flomax -] 0.4 mg PO DAILY 08/01/18 Furosemide 40 mg PO DAILY 08/02/18 Cyanocobalamin [Vitamin B12 -] 1,000 mcg PO DAILY #30 tablet 08/05/18 Docusate Sodium [Colace -] 100 mg PO DAILY #30 capsule 08/05/18 Ferrous Sulfate [Feosol] 325 mg PO BID #60 tab 08/05/18 Cardiac Disorders: Yes (16 stents, Afib s/p ablation, CAD, [place]) COPD: No Diabetes: No GI Disorders: Yes (GERD) Disorders: Yes (BPH) HTN: Yes Hypercholesterolemia: Yes - Surgical History Cardiac Surgery: Yes (Stent, ablation, CABG) Orthopedic Surgery: Yes (meniscus repair) - Psycho Social/Smoking Cessation Hx Smoking History: Never smoked Have you smoked in the past 12 months: No Information on smoking cessation initiated: No Hx Alcohol Use: No Drug/Substance Use Hx: No Review of Systems - Review of Systems Constitutional: Yes: Fever HEENTM: Yes: Blurred Vision. No: Recent change in vision Respiratory: Yes: Shortness of Breath, Productive cough (yellowish sputum) Cardiac (ROS): No: Chest Pain, Syncope ABD/GI: No: Constipated, Diarrhea, Nausea, Vomiting *Physical Exam - Vital Signs Last Vital Signs Temp Pulse Resp BP Pulse Ox 97.8 F 121 H 20 165/123 H 96 12/04/18 04:33 12/04/18 04:33 12/04/18 04:33 12/04/18 04:33 12/04/18 04:33 - Physical Exam Comments: 12/04/18 06:17 Triage VS reviewed General: awake, alert, NAD CV: S1, S2, RRR Respiratory: CLTA B/L Abdomen: soft, non-tender, (+) bowel sounds Chest: midline well healed scar Extremity: 2+ DP pulses B/L, no LE edema Neuro: A&O x3, CN II-XII intact Heart Score/ECG Review - ECG Impressions Comment:: 12/04/18 08:12 HR 122, TWI in inferior leads II, III, AVF (new from EKG dated 07/2018), no AVNI/ STD ED Treatment Course - LABORATORY CBC & Chemistry Diagram: 12/04/18 06:00 12/04/18 06:00 Medical Decision Making - Medical Decision Making 12/04/18 04:52 63 y/o male with c/o viral URI Sx (productive cough, congestion) and NELSON - no other active cardiac complaints beside NELSON Triage VS siginificant for Tachycardia (HR 121), Hypertension (165/123) at presentation. Repeat BP @ /111, HR 122 Clinical suspicion for viral URI, however will evaluate for PNA and CHF exacerbation (cough, NELSON). As patient reports NELSON and has significant cardiac and vascular disease will also evaluate for r/o ACS, consider PE however less likely given clinical presentation. Will give home BP medications; Basic labs, Troponin, EKG pending 12/04/18 05:20 S/p home BP medications (Metoprolol 100 mg, Losartan 50 mg) BP 145/113, HR 121 12/04/18 05:23 Will give Ranexa for diastolic relaxation + 5 IV Lopressor for HR 12/04/18 05:24 EKG with ischemic change - TWI in inferior leads as documented in EKG section of EMR 12/04/18 06:00 Multiple attempts at failed IV access IV access obtained Meds pending 12/04/18 06:20 S/p Lopressor (5 mg IV) - HR 122, BP 145/115 12/04/18 06:23 Holding Ranexa as per attending Will hydrate for rate control - as patient may be in acute CHF exacerbation 12/04/18 06:32 Gentle IV Hydration - patient has h/o CHF, not fluid overloaded on PE 12/04/18 06:54 S/p 250 mL - HR remains 120's 12/04/18 07:00 Will page Cardiology consult for rate control recommendation 12/04/18 07:07 Case d/w [facility] - recommends uptitrating PO BB 12/04/18 07:16 Will evaluate for other etiologies of sinus tachycardia including UTox, Decongestant overuse, Dehydration 12/04/18 07:28 Case signed out @ bedside to Dr. Salguero (PGY-3), Dr. Sweeney (Attending) - patient will likely require admission pending no discernible etiology for persistent sinus tachycardia and given his significant cardiac comorbidities 12/04/18 08:15 Bedside Cardiac POCUS shows no pericardial effusion, poor image evaluation of possible LV or RV hypertrophy Discharge - Discharge Information Problems reviewed: Yes Clinical Impression/Diagnosis: Sinus tachycardia - Follow up/Referral - Patient Discharge Instructions - Post Discharge Activity
--- NOTE | 2018-12-04 04:51 | PDOC ---
History of Present Illness - General Chief Complaint: Blood Pressure Problem Stated Complaint: ELEVATED BLOOD PRESSURE Time Seen by Provider: 12/04/18 04:50 Past History - Past Medical History Allergies/Adverse Reactions: Allergies Allergy/AdvReac Type Severity Reaction Status Date / Time Penicillins Allergy Verified 12/04/18 04:33 Home Medications: Ambulatory Orders Aspirin 81 mg PO DAILY 08/01/18 Atorvastatin Ca [Lipitor] 80 mg PO DAILY 08/01/18 Clopidogrel Bisulfate [Clopidogrel] 75 mg PO DAILY 08/01/18 Dronedarone HCl [Multaq -] 400 mg PO BID 08/01/18 Escitalopram Oxalate [Lexapro -] 20 mg PO DAILY 08/01/18 Finasteride 5 mg PO DAILY 08/01/18 Gabapentin 400 mg PO TID 08/01/18 Isosorbide Mononitrate [Isosorbide Mononitrate ER] 30 mg PO DAILY 08/01/18 Losartan Potassium 50 mg PO DAILY 08/01/18 Metoprolol Tartrate 100 mg PO BID 08/01/18 Oxycodone HCl/Acetaminophen [Percocet 5-325 mg Tablet] 1 tab PO Q6H 08/01/18 Pantoprazole Sodium [Protonix] 40 mg PO DAILY 08/01/18 Ranolazine [Ranexa] 500 mg PO DAILY 08/01/18 Rivaroxaban [Xarelto] 20 mg PO DAILY 08/01/18 Tamsulosin HCl [Flomax -] 0.4 mg PO DAILY 08/01/18 Furosemide 40 mg PO DAILY 08/02/18 Cyanocobalamin [Vitamin B12 -] 1,000 mcg PO DAILY #30 tablet 08/05/18 Docusate Sodium [Colace -] 100 mg PO DAILY #30 capsule 08/05/18 Ferrous Sulfate [Feosol] 325 mg PO BID #60 tab 08/05/18 Cardiac Disorders: Yes (16 stents, Afib s/p ablation, CAD, [place]) COPD: No Diabetes: No GI Disorders: Yes (GERD) Disorders: Yes (BPH) HTN: Yes Hypercholesterolemia: Yes - Surgical History Cardiac Surgery: Yes (Stent, ablation, CABG) Orthopedic Surgery: Yes (meniscus repair) - Psycho Social/Smoking Cessation Hx Smoking History: Never smoked Have you smoked in the past 12 months: No Information on smoking cessation initiated: No Hx Alcohol Use: No Drug/Substance Use Hx: No *Physical Exam - Vital Signs Last Vital Signs Temp Pulse Resp BP Pulse Ox 97.8 F 121 H 20 165/123 H 96 12/04/18 04:33 12/04/18 04:33 12/04/18 04:33 12/04/18 04:33 12/04/18 04:33
[2018-12-04] MEDS ORDERED: LOSARTAN POTASSIUM 50 MG TABLET (FP) ONE (04:55)
[2018-12-04] MEDS ORDERED: METOPROLOL TARTRATE 50 MG TABLET (FP) ONE (04:55)
[2018-12-04] MEDS ORDERED: RANOLAZINE E.R. 500 MG TABLET (FP) PO ONE (05:22)
[2018-12-04] MEDS ORDERED: METOPROLOL TARTRATE 5 MG/5 ML VIAL IVPUSH ONE ×3 (05:23→15:40)
--- NOTE | 2018-12-04 06:03 | PDOC ---
Attending Attestation - Resident Resident Name: Radha Bates - ED Attending Attestation I have performed the following: I have examined & evaluated the patient, The case was reviewed & discussed with the resident, I agree w/resident's findings & plan - HPI HPI: 12/04/18 06:59 Pt comes with sniffles and cough and cold. Incidentally we find that he is tachycardic and hypertensive. Pt is noncompliant with his meds. He is supposed to go to the [facility], but he is noncompliant. - Physicial Exam PE: 12/04/18 07:00 No pitting edema; no rales or rhonchi. - Medical Decision Making 12/04/18 07:01 Pt will be signed out to the day team; CXR pending. Labs just returned. We are calling cards for consult.
[2018-12-04] MEDS ORDERED: METOPROLOL TARTRATE 5 MG/5 ML VIAL ONE ×3 (06:09→15:48)
[2018-12-04] MEDS ORDERED: IBUPROFEN 600 MG TABLET (FP) PO ONE (06:11)
[2018-12-04] MEDS ORDERED: SODIUM CHLORIDE 0.9% 500 ML INFUS.BAG IV ONE ×3 (06:24→09:45)
[2018-12-04 06:30] LABS: BASO % 0.5 % (0-2.0); EOS % 1.9 % (0-4.5); HEMATOCRIT 41.4 % (35.4-49); HEMOGLOBIN 13.8 GM/dL (11.7-16.9); LYMPH % 14.6 % (8-40); MCH 30.3 pg (25.7-33.7); MCHC 33.4 g/dl (32.0-35.9); MEAN CELL VOLUME 90.8 fl (80-96); PLATELET COUNT 143 K/MM3 (134-434); RBC 4.57 M/mm3 (4.00-5.60); RDW 15.8 % (11.9-15.9); WHITE BLOOD COUNT 7.2 K/mm3 (4.0-10.0)
[2018-12-04 06:41] LABS: ALBUMIN 3.4 g/dl (3.4-5.0); BILIRUBIN,TOTAL 0.3 mg/dL (0.2-1); BLOOD UREA NITROGEN 21.7 mg/dL (7-18); CREATININE 1.2 mg/dL (0.55-1.3); POTASSIUM 3.4 mmol/L (3.5-5.1)
[2018-12-04 07:35] LABS: INR 1.06 (0.83-1.09); PROTHROMBIN TIME (PATIENT) 12.5 SEC (9.7-13.0)
[2018-12-04 07:38] LABS: ACTIVATED PTT 30.9 SECONDS (25.2-36.5)
[2018-12-04 08:18] LABS: COCAINE, UR NEGATIVE ng/ml (CUTOFF=300); METHADONE, UR NEGATIVE ng/ml (CUTOFF=300); OPIATES, URI NEGATIVE ng/ml (CUTOFF=300); PHENCYCLIDINE,URINE NEGATIVE ng/ml (CUTOFF=25); URINE AMPHETAMINES NEGATIVE ng/ml (CUTOFF=500); URINE BARBITURATES NEGATIVE ng/ml (CUTOFF=200); URINE BENZODIAZEPINES NEGATIVE ng/ml (CUTOFF=200)
[2018-12-04] MEDS: BENZOCAINE/MENTH/CETYLPYRD CL 1 EACH LOZENGE MM PRN (08:30)
[2018-12-04] MEDS ORDERED: POTASSIUM CHLORIDE TABS 20 MEQ TABLET.ER (FP) PO ONE ×2 (09:46→09:48)
--- NOTE | 2018-12-04 11:39 | EKG ---
Test Reason : Blood Pressure : / mmHG Vent. Rate : 122 BPM Atrial Rate : 122 BPM P-R Int : 150 ms QRS Dur : 106 ms QT Int : 354 ms P-R-T Axes : 000 027 246 degrees QTc Int : 504 ms ATRIAL FLUTTER RSR' OR QR PATTERN IN V1 SUGGESTS RIGHT VENTRICULAR CONDUCTION DELAY NONSPECIFIC ST ABNORMALITY VOLTAGE CRITERIA FOR LEFT VENTRICULAR HYPERTROPHY ABNORMAL ECG Confirmed by OJ CASIANO MD ([id number]) on 12/04/2018 11:38:52 AM Referred By: Confirmed By:OJ CASIANO MD
[2018-12-04] MEDS ORDERED: dilTIAZem HCL 50 MG/10 ML - 10 ML VIAL IVPUSH ONE (12:57)
[2018-12-04] MEDS ORDERED: ACETAMINOPHEN 1000 MG/100 ML VIAL (NON FORMULARY) IVPB ONE (14:10)
[2018-12-04] MEDS ORDERED: ACETAMINOPHEN INJECTION 100 ML IVPB ONE (14:19)
--- NOTE | 2018-12-04 16:41 | HP ---
CHIEF COMPLAINT: shortness of breath, tachycardia PCP: [facility] (Dr. Vega) HISTORY OF PRESENT ILLNESS: Patient is a 63 year old male with a past medical history of [place] (September 2018, s/ p stenting at [facility]), CHF, hypertension, atrial fibrillaton (s/p ablation) aortic aneursym and psiorosis. He presents to our ED presents with c/ o of cough, congestion and shortness of breath. Patient reports worsening shortness of breath for approximately 5 days. He is currently homeless and lives in a chcf and has had sick contacts. He denies chest pain and reports taking his medications including the metoprolol. He denies orthopnea, no lower extremity swelling. In the ED he was noted to have uncontrolled hypertension, tachycardia with aflutter and has been ruled out for PE with negative CTA. He will be monitored on tele. Patient recently admitted on 07/2018 for bilateral lower ext pain and and CTA was done. Patient was instructed to follow up with Dr. Cheek for an out patient ER course was notable for: (1) ekg; aflutter 122, with no specific t wave abnormality (2) uncontrolled hypertension (3) prolonged qtc (4) chest cta negative for PE Recent Travel: denies PAST MEDICAL HISTORY: of [place] (September 2018, s/p stenting at [facility]), CHF, hypertension, atrial fibrillaton (s/p ablation) aortic aneursym. PAST SURGICAL HISTORY:CABG, Cardiac Stent x17 Social History: Smoking: quit 35 years ago Alcohol: denies Drugs: denies Allergies Penicillins Allergy (Verified 12/04/18 04:33) HOME MEDICATIONS: Home Medications Medication Instructions Recorded Aspirin 81 mg PO DAILY 08/01/18 Atorvastatin Ca [Lipitor] 80 mg PO DAILY 08/01/18 Clopidogrel Bisulfate [Clopidogrel] 75 mg PO DAILY 08/01/18 Dronedarone HCl [Multaq -] 400 mg PO BID 08/01/18 Escitalopram Oxalate [Lexapro -] 20 mg PO DAILY 08/01/18 Finasteride 5 mg PO DAILY 08/01/18 Gabapentin 400 mg PO TID 08/01/18 Isosorbide Mononitrate [Isosorbide 30 mg PO DAILY 08/01/18 Mononitrate ER] Losartan Potassium 50 mg PO DAILY 08/01/18 Metoprolol Tartrate 100 mg PO BID 08/01/18 Oxycodone HCl/Acetaminophen 1 tab PO Q6H 08/01/18 [Percocet 5-325 mg Tablet] Pantoprazole Sodium [Protonix] 40 mg PO DAILY 08/01/18 Ranolazine [Ranexa] 500 mg PO DAILY 08/01/18 Rivaroxaban [Xarelto] 20 mg PO DAILY 08/01/18 Tamsulosin HCl [Flomax -] 0.4 mg PO DAILY 08/01/18 Furosemide 40 mg PO DAILY 08/02/18 Cyanocobalamin [Vitamin B12 -] 1,000 mcg PO DAILY #30 tablet 08/05/18 Docusate Sodium [Colace -] 100 mg PO DAILY #30 capsule 08/05/18 Ferrous Sulfate [Feosol] 325 mg PO BID #60 tab 08/05/18 PHYSICAL EXAMINATION Vital Signs - 24 hr 12/04/18 12/04/18 12/04/18 04:33 06:16 07:09 Temperature 97.8 F Pulse Rate 121 H Pulse Rate [ 109 H Apical] Respiratory 20 22 H Rate Blood Pressure 165/123 H 145/113 H Blood Pressure 131/111 H [Left Arm] O2 Sat by Pulse 96 96 Oximetry (%) 12/04/18 12/04/18 12/04/18 07:17 09:38 15:49 Temperature Pulse Rate Pulse Rate [ 121 H Apical] Respiratory 19 Rate Blood Pressure 139/111 H 149/110 H Blood Pressure 154/119 H [Left Arm] O2 Sat by Pulse 95 Oximetry (%) GENERAL: Awake, alert, and fully oriented, in no acute distress. HEAD: Normal with no signs of trauma. EYES: Pupils equal, round and reactive to light, extraocular movements intact, sclera anicteric, conjunctiva clear. No lid lag. EARS, NOSE, THROAT: Ears normal, nares patent, oropharynx clear without exudates. Moist mucous membranes. NECK: Normal range of motion, supple without lymphadenopathy, JVD, or masses. LUNGS: Breath sounds equal, diminished to auscultation bilaterally. no wheezing. HEART: tachycardia, regular 122 ABDOMEN: Soft, nontender, not distended, normoactive bowel sounds, no guarding, no rebound, no masses. No hepatomegaly or splenomegaly. MUSCULOSKELETAL: Normal range of motion at all joints. No bony deformities or tenderness. No CVA tenderness. UPPER EXTREMITIES: red raised patches/rash on bilateral arms. hx of psiorosis. LOWER EXTREMITIES: 2+ pulses, warm, well-perfused. No calf tenderness. No peripheral edema. NEUROLOGICAL: Normal speech. Normal gait. PSYCHIATRIC: Cooperative. Good eye contact. Appropriate mood and affect. Laboratory Results - last 24 hr 12/04/18 12/04/18 12/04/18 06:00 06:00 06:00 WBC 7.2 RBC 4.57 Hgb 13.8 Hct 41.4 D MCV 90.8 MCH 30.3 MCHC 33.4 RDW 15.8 D Plt Count 143 D MPV 9.0 Absolute Neuts (auto) 5.3 Neutrophils % 73.0 Lymphocytes % 14.6 D Monocytes % 10.0 Eosinophils % 1.9 Basophils % 0.5 Nucleated RBC % 0 PT with INR INR PTT (Actin FS) Sodium 142 Potassium 3.4 L Chloride 104 Carbon Dioxide 31 Anion Gap 7 L BUN 21.7 H Creatinine 1.2 Est GFR (CKD-EPI)AfAm 73.62 Est GFR (CKD-EPI)NonAf 63.52 Random Glucose 97 Calcium 9.0 Total Bilirubin 0.3 AST 13 L ALT 16 Alkaline Phosphatase 111 Creatine Kinase 47 Troponin I 0.02 B-Natriuretic Peptide 3745.6 H Total Protein 7.0 Albumin 3.4 TSH 2.93 D Free T4 1.17 H Opiates Screen Methadone Screen Barbiturate Screen Phencyclidine Screen Ur Amphetamines Screen MDMA (Ecstasy) Screen Benzodiazepines Screen Cocaine Screen U Marijuana (THC) Screen 12/04/18 12/04/18 12/04/18 06:32 07:44 14:00 WBC RBC Hgb Hct MCV MCH MCHC RDW Plt Count MPV Absolute Neuts (auto) Neutrophils % Lymphocytes % Monocytes % Eosinophils % Basophils % Nucleated RBC % PT with INR 12.50 INR 1.06 PTT (Actin FS) 30.9 Sodium Potassium Chloride Carbon Dioxide Anion Gap BUN Creatinine Est GFR (CKD-EPI)AfAm Est GFR (CKD-EPI)NonAf Random Glucose Calcium Total Bilirubin AST ALT Alkaline Phosphatase Creatine Kinase 48 Troponin I 0.02 B-Natriuretic Peptide Total Protein Albumin TSH Free T4 Opiates Screen Negative Methadone Screen Negative Barbiturate Screen Negative Phencyclidine Screen Negative Ur Amphetamines Screen Negative MDMA (Ecstasy) Screen Negative Benzodiazepines Screen Negative Cocaine Screen Negative U Marijuana (THC) Screen Negative ASSESSMENT/PLAN: Family Medical History Family Hx Cancer: Father (colon, at age 47) Problem List - Problem (1) Acute on chronic diastolic CHF (congestive heart failure) Assessment/Plan: BNP 3000 on admission. start on lasix 40mg iv push with close monitoring of weights. monitor intake and output. monitor weights, intake and output Code(s): I50.33 - ACUTE ON CHRONIC DIASTOLIC (CONGESTIVE) HEART FAILURE (2) Atrial flutter by electrocardiogram Assessment/Plan: patient heart rate significant for tachycardia on admission and found to have aflutter with non specific wave abnormality. Given hydration in the ED, gently for concerns of volume overload. was also given lopressor 5mg iv in the ED. start on metoprolol bid, lopressor pushes prn monitor on tele, trend troponins. patient reports compliance with home medications. bedside echo done in the ED reported to show no pericardial effusion. echo in a.m. on xarelto and metoprolol Code(s): I48.92 - UNSPECIFIED ATRIAL FLUTTER (3) BPH (benign prostatic hyperplasia) Assessment/Plan: continue flomax Code(s): N40.0 - BENIGN PROSTATIC HYPERPLASIA WITHOUT LOWER URINRY TRACT SYMP (4) HTN (hypertension) Assessment/Plan: hypertension not controlled, likely due to medication non compliance. on metoprolol, lopressor. monitor bp q 4 Code(s): I10 - ESSENTIAL (PRIMARY) HYPERTENSION (5) Hyperlipidemia Assessment/Plan: continue home statin Code(s): E78.5 - HYPERLIPIDEMIA, UNSPECIFIED (6) PAD (peripheral artery disease) Assessment/Plan: seen by vascular on last admission, patient to follow up outpatient. Code(s): I73.9 - PERIPHERAL VASCULAR DISEASE, UNSPECIFIED (7) SHANA (acute kidney injury) Code(s): N17.9 - ACUTE KIDNEY FAILURE, UNSPECIFIED (8) Old myocardial infarct Assessment/Plan: monitor on tele patient with an extensive cardiac history cardiology consulted. Code(s): I25.2 - OLD MYOCARDIAL INFARCTION (9) Prophylactic measure Assessment/Plan: fen cardiac diet monitor electrolytes low salt on xarelto Code(s): Z29.9 - ENCOUNTER FOR PROPHYLACTIC MEASURES, UNSPECIFIED Visit type - Emergency Visit Emergency Visit: Yes ED Registration Date: 12/04/18 Care time: The patient presented to the Emergency Department on the above date and was hospitalized for further evaluation of their emergent condition. - New Patient This patient is new to me today: Yes Date on this admission: 12/04/18 - Critical Care Critical Care patient: No
[2018-12-04] MEDS ORDERED: FLU VACCINE QUAD 60 MCG/0.5 ML (MDV 19-20) IM ONE (17:47)
[2018-12-04] MEDS: ATORVASTATIN CA 80 MG TABLET (FP) PO SCH (22:32)
[2018-12-04] MEDS: FERROUS SO4 325 MG TABLET (FP) PO SCH (22:32)
[2018-12-04] MEDS: METOPROLOL TARTRATE 50 MG TABLET (FP) PO SCH (22:33)
[2018-12-04] MEDS: ZOLPIDEM TARTRATE 5 MG TABLET PO PRN (22:33)
[2018-12-04] MEDS: DRONEDARONE HCL 400 MG TAB (FP) PO SCH (22:34)
[2018-12-05] MEDS: METOPROLOL TARTRATE 5 MG/5 ML VIAL IVPUSH PRN (00:03)
[2018-12-05] MEDS ORDERED: guaiFENesin 200 MG/10 ML 10 ML UNIT-DOSE CUPS PO ONE (00:09)
[2018-12-05] MEDS: ACETAMINOPHEN 325 MG TABLET (FP) PO PRN ×3 (00:17→21:58)
[2018-12-05] MEDS: GABAPENTIN 400 MG CAPSULE (FP) PO SCH ×3 (06:23→21:58)
[2018-12-05] MEDS: FUROSEMIDE 40 MG/4 ML INJECTABLE VIAL IVPUSH SCH ×2 (06:24→13:06)
--- NOTE | 2018-12-05 07:38 | PN ---
Progress Note, Physician Chief Complaint: complaining of dry cough that interrupted his sleep History of Present Illness: Patient is a 63 year old male with a past medical history of [place] (September 2018, s/ p stenting at [facility]), CHF, hypertension, atrial fibrillaton (s/p ablation) aortic aneurysm and psiorosis. He presents to our ED presents with c/ o of cough, congestion and shortness of breath. Patient reports worsening shortness of breath for approximately 5 days. He is currently homeless and lives in a longterm - Current Medication List Current Medications: Active Medications Acetaminophen (Tylenol -) 650 mg PO Q6H PRN PRN Reason: PAIN OR FEVER Last Admin: 12/05/18 00:17 Dose: 650 mg Aspirin (Asa -) 81 mg PO DAILY [facility] Atorvastatin Calcium (Lipitor -) 80 mg PO HS [facility] Last Admin: 12/04/18 22:32 Dose: 80 mg Benzocaine/Menthol (Cepacol Lozenge -) 1 each MM PRN PRN PRN Reason: SORE THROAT Last Admin: 12/04/18 08:30 Dose: 1 each Clopidogrel Bisulfate (Plavix -) 75 mg PO DAILY [facility] Docusate Sodium (Colace -) 100 mg PO DAILY [facility] Dronedarone (Multaq -) 400 mg PO BID [facility] Last Admin: 12/04/18 22:34 Dose: 400 mg Escitalopram Oxalate (Lexapro -) 20 mg PO DAILY [facility] Ferrous Sulfate (Feosol -) 325 mg PO BID [facility] Last Admin: 12/04/18 22:32 Dose: 325 mg Finasteride (Proscar -) 5 mg PO DAILY [facility] Furosemide (Lasix Injection -) 40 mg IVPUSH BID@0600,1400 [facility] Last Admin: 12/05/18 06:24 Dose: 40 mg Gabapentin (Neurontin -) 400 mg PO TID [facility] Last Admin: 12/05/18 06:23 Dose: 400 mg Losartan Potassium (Cozaar -) 50 mg PO DAILY [facility] Metoprolol Tartrate (Lopressor -) 100 mg PO BID [facility] Last Admin: 12/04/18 22:33 Dose: 100 mg Metoprolol Tartrate (Lopressor Injection -) 5 mg IVPUSH Q4H PRN PRN Reason: TACHYCARDIA Last Admin: 12/05/18 00:03 Dose: 5 mg Pantoprazole Sodium (Protonix -) 40 mg PO DAILY [facility] Rivaroxaban (Xarelto) 20 mg PO DAILY [facility] Zolpidem Tartrate (Ambien -) 10 mg PO HS PRN PRN Reason: INSOMNIA Last Admin: 12/04/18 22:33 Dose: 10 mg - Objective Vital Signs: Vital Signs Temperature 98.3 F 12/05/18 06:51 Pulse Rate 122 H 12/05/18 06:51 Respiratory Rate 20 12/05/18 06:51 Blood Pressure 149/111 H 12/05/18 06:51 O2 Sat by Pulse Oximetry (%) 100 12/04/18 21:00 Constitutional: Yes: Well Nourished, No Distress, Calm Eyes: Yes: WNL, Conjunctiva Clear HENT: Yes: WNL, Atraumatic, Normocephalic Neck: Yes: WNL, Supple, Trachea Midline Cardiovascular: Yes: Tachycardia, Pulse Irregular (AFlutter on monitor), Other ( HR in 120s presently) Respiratory: Yes: Regular, CTA Bilaterally, Cough, Rales Gastrointestinal: Yes: WNL, Normal Bowel Sounds ...Rectal Exam: Yes: Deferred Genitourinary: Yes: WNL Breast(s): Yes: WNL Musculoskeletal: Yes: WNL Extremities: Yes: WNL Edema: No Peripheral Pulses WNL: Yes Peripheral Pulses: Left Radial: 2+, Right Radial: 2+, Left Doralis Pedis: 2+, Right Dorsalis Pedis: 2+, Left Femoral: 2+, Right Femoral: 2+ Integumentary: Yes: WNL Neurological: Yes: WNL, Alert, Oriented ...Motor Strength: WNL Psychiatric: Yes: WNL Labs: CBC, BMP 12/04/18 06:00 12/04/18 06:00 INR, PTT INR 1.06 (0.83-1.09) 12/04/18 06:32 - ....Imaging Cat Scan: Report Reviewed (CTA: neg for PE) Problem List - Problems (1) Atrial flutter by electrocardiogram Assessment/Plan: c/w metoprolol/multaq for rate control TTE pending IV metoprol if needed appreciate cardiology consultation Code(s): I48.92 - UNSPECIFIED ATRIAL FLUTTER (2) Prophylactic measure Assessment/Plan: FEN Fluids: adequate PO intake Electrolytes: monitor & replete as needed. Keep K>4.0, Mg >2.0 Nutrition: cardiac diet DVT c/w asa, plavix, xarelto Dispo Maintain om tele full code discharge planning Code(s): Z29.9 - ENCOUNTER FOR PROPHYLACTIC MEASURES, UNSPECIFIED (3) HTN (hypertension) Assessment/Plan: BP coming down c/w cozaar Code(s): I10 - ESSENTIAL (PRIMARY) HYPERTENSION (4) Hx of CABG Assessment/Plan: c/w asa,plavix Code(s): Z95.1 - PRESENCE OF AORTOCORONARY BYPASS GRAFT (5) Hyperlipidemia Assessment/Plan: c/w atorvastatin cardiac diet Code(s): E78.5 - HYPERLIPIDEMIA, UNSPECIFIED (6) CHF (congestive heart failure) Assessment/Plan: c/w lasix IV strict I/Os, weight daily Code(s): I50.9 - HEART FAILURE, UNSPECIFIED (7) BPH (benign prostatic hyperplasia) Assessment/Plan: c/w flomax Code(s): N40.0 - BENIGN PROSTATIC HYPERPLASIA WITHOUT LOWER URINRY TRACT SYMP Visit type - Emergency Visit Emergency Visit: Yes ED Registration Date: 12/04/18 Care time: The patient presented to the Emergency Department on the above date and was hospitalized for further evaluation of their emergent condition. - New Patient This patient is new to me today: Yes Date on this admission: 12/05/18 - Critical Care Critical Care patient: No - Discharge Referral Referred to [facility] Med P.C.: No
[2018-12-05] MEDS: guaiFENesin 200 MG/10 ML 10 ML UNIT-DOSE CUPS PO PRN ×3 (08:40→20:40)
[2018-12-05] MEDS: METOPROLOL TARTRATE 50 MG TABLET (FP) PO SCH ×2 (09:40→21:59)
[2018-12-05] MEDS: ASPIRIN 81 MG CHEWABLE TABLETS PO SCH (09:40)
[2018-12-05] MEDS: RIVAROXABAN 20 MG TABLET PO SCH (09:40)
[2018-12-05] MEDS: FINASTERIDE 5 MG TABLET (FP) PO SCH (09:40)
[2018-12-05] MEDS: CLOPIDOGREL BISULFATE 75 MG TABLET (FP) PO SCH (09:40)
[2018-12-05] MEDS: FERROUS SO4 325 MG TABLET (FP) PO SCH ×2 (09:41→21:59)
[2018-12-05] MEDS: DRONEDARONE HCL 400 MG TAB (FP) PO SCH ×2 (09:41→22:01)
[2018-12-05] MEDS: LOSARTAN POTASSIUM 50 MG TABLET (FP) PO SCH (09:41)
[2018-12-05] MEDS: DOCUSATE SODIUM 100 MG CAPSULE (FP) PO SCH (09:41)
[2018-12-05] MEDS: PANTOPRAZOLE 40 MG TABLET (FP) PO SCH (09:41)
[2018-12-05] MEDS: ESCITALOPRAM OXALATE 20 MG TABLET (FP) PO SCH (09:41)
[2018-12-05] MEDS: BENZOCAINE/MENTH/CETYLPYRD CL 1 EACH LOZENGE MM PRN ×2 (09:41→21:39)
--- NOTE | 2018-12-05 10:26 | EKG ---
Test Reason : Blood Pressure : / mmHG Vent. Rate : 125 BPM Atrial Rate : 250 BPM P-R Int : 000 ms QRS Dur : 108 ms QT Int : 344 ms P-R-T Axes : -68 015 236 degrees QTc Int : 496 ms ATRIAL FLUTTER WITH 2:1 A-V CONDUCTION RSR' OR QR PATTERN IN V1 SUGGESTS RIGHT VENTRICULAR CONDUCTION DELAY LEFT VENTRICULAR HYPERTROPHY WITH REPOLARIZATION ABNORMALITY ABNORMAL ECG WHEN COMPARED WITH ECG OF 04-DEC-2018 04:38, NO SIGNIFICANT CHANGE WAS FOUND Confirmed by ALVIN BRADY MD ([id number]) on 12/05/2018 10:25:51 AM Referred By: Confirmed By:ALVIN BRADY MD
--- NOTE | 2018-12-05 11:15 | CON.CARD ---
Consult Consult Specialty:: Cardiology Reason for Consultation:: sob - History of Present Illness History of Present Illness: Patient is a 63 year old male with a past medical history of [place] (September 2018, s/ p stenting at [facility]), CHF, hypertension, atrial fibrillaton (s/p ablation) aortic aneursym and psiorosis. He presents to our ED presents with c/ o of cough, congestion and shortness of breath. Patient reports worsening shortness of breath for approximately 5 days. He is currently homeless and lives in a longterm and has had sick contacts. He denies chest pain and reports taking his medications including the metoprolol. He denies orthopnea, no lower extremity swelling. In the ED he was noted to have uncontrolled hypertension, tachycardia with aflutter and has been ruled out for PE with negative CTA. He will be monitored on tele. Patient recently admitted on 07/2018 for bilateral lower ext pain and and CTA was done. Patient was instructed to follow up with Dr. Cheek for an out patient ER course was notable for: (1) ekg; aflutter 122, with no specific t wave abnormality (2) uncontrolled hypertension (3) prolonged qtc (4) chest cta negative for PE PMH reportedly "one vessel diseasse"; CABG done about 5 yrs ago. Pt reports having had 8 stents prior to CABG, and "8 or 9 more" since then, the most recent reportedly a 4 months ago at [place] when he was having an [place]). - History Source History Provided By: Patient, Medical Record - Alcohol/Substance Use Hx Alcohol Use: No - Smoking History Smoking history: Former smoker Have you smoked in the past 12 months: No If you are a former smoker, when did you quit?: 35 years ago Home Medications - Allergies Allergies/Adverse Reactions: Allergies Allergy/AdvReac Type Severity Reaction Status Date / Time Penicillins Allergy Verified 12/04/18 04:33 - Home Medications Home Medications: Ambulatory Orders Aspirin 81 mg PO DAILY 08/01/18 Atorvastatin Ca [Lipitor] 80 mg PO DAILY 08/01/18 Clopidogrel Bisulfate [Clopidogrel] 75 mg PO DAILY 08/01/18 Dronedarone HCl [Multaq -] 400 mg PO BID 08/01/18 Escitalopram Oxalate [Lexapro -] 20 mg PO DAILY 08/01/18 Finasteride 5 mg PO DAILY 08/01/18 Gabapentin 400 mg PO TID 08/01/18 Isosorbide Mononitrate [Isosorbide Mononitrate ER] 30 mg PO DAILY 08/01/18 Losartan Potassium 50 mg PO DAILY 08/01/18 Metoprolol Tartrate 100 mg PO BID 08/01/18 Oxycodone HCl/Acetaminophen [Percocet 5-325 mg Tablet] 1 tab PO Q6H 08/01/18 Pantoprazole Sodium [Protonix] 40 mg PO DAILY 08/01/18 Ranolazine [Ranexa] 500 mg PO DAILY 08/01/18 Rivaroxaban [Xarelto] 20 mg PO DAILY 08/01/18 Tamsulosin HCl [Flomax -] 0.4 mg PO DAILY 08/01/18 Furosemide 40 mg PO DAILY 08/02/18 Cyanocobalamin [Vitamin B12 -] 1,000 mcg PO DAILY #30 tablet 08/05/18 Docusate Sodium [Colace -] 100 mg PO DAILY #30 capsule 08/05/18 Ferrous Sulfate [Feosol] 325 mg PO BID #60 tab 08/05/18 Review of Systems - Review of Systems Constitutional: reports: No Symptoms Eyes: reports: No Symptoms HENT: reports: No Symptoms Neck: reports: No Symptoms Cardiovascular: reports: Shortness of Breath Respiratory: reports: SOB, SOB on Exertion Gastrointestinal: reports: No Symptoms Genitourinary: reports: No Symptoms Breasts: reports: No Symptoms Reported Musculoskeletal: reports: No Symptoms Integumentary: reports: No Symptoms Neurological: reports: No Symptoms Endocrine: reports: No Symptoms Hematology/Lymphatic: reports: No Symptoms Psychiatric: reports: No Symptoms Vital Signs: Vital Signs Temperature 99 F 12/05/18 08:49 Pulse Rate 124 H 12/05/18 08:49 Respiratory Rate 24 H 12/05/18 08:54 Blood Pressure 135/98 12/05/18 08:49 O2 Sat by Pulse Oximetry (%) 100 12/05/18 08:54 Constitutional: Yes: Well Nourished, No Distress, Calm Eyes: Yes: WNL, Conjunctiva Clear, EOM Intact HENT: Yes: WNL, Atraumatic, Normocephalic Neck: Yes: WNL, Supple, Trachea Midline Respiratory: Yes: WNL, Regular, CTA Bilaterally Gastrointestinal: Yes: WNL, Normal Bowel Sounds Renal/: Yes: WNL Cardiovascular: Yes: WNL, Regular Rate and Rhythm Musculoskeletal: Yes: WNL Extremities: Yes: WNL Integumentary: Yes: WNL Neurological: Yes: WNL, Alert, Oriented ...Motor Strength: WNL Psychiatric: Yes: WNL, Alert, Oriented - Other Data Labs, Other Data: CBC, BMP 12/04/18 06:00 12/04/18 06:00 INR, PTT INR 1.06 (0.83-1.09) 12/04/18 06:32 Troponin, BNP 12/04/18 12/04/18 12/04/18 06:00 14:00 21:07 Troponin I 0.02 0.02 0.02 Troponin, BNP 12/04/18 12/04/18 12/04/18 06:00 14:00 21:07 Troponin I 0.02 0.02 0.02 Laboratory Tests 12/04/18 12/04/18 12/04/18 06:00 06:00 06:00 WBC 7.2 RBC 4.57 Hgb 13.8 Hct 41.4 D MCV 90.8 MCH 30.3 MCHC 33.4 RDW 15.8 D Plt Count 143 D MPV 9.0 Absolute Neuts (auto) 5.3 Neutrophils % 73.0 Lymphocytes % 14.6 D Monocytes % 10.0 Eosinophils % 1.9 Basophils % 0.5 Nucleated RBC % 0 PT with INR INR PTT (Actin FS) Sodium 142 Potassium 3.4 L Chloride 104 Carbon Dioxide 31 Anion Gap 7 L BUN 21.7 H Creatinine 1.2 Est GFR (CKD-EPI)AfAm 73.62 Est GFR (CKD-EPI)NonAf 63.52 Random Glucose 97 Calcium 9.0 Total Bilirubin 0.3 AST 13 L ALT 16 Alkaline Phosphatase 111 Creatine Kinase 47 Troponin I 0.02 B-Natriuretic Peptide 3745.6 H Total Protein 7.0 Albumin 3.4 TSH 2.93 D Free T4 1.17 H Opiates Screen Methadone Screen Barbiturate Screen Phencyclidine Screen Ur Amphetamines Screen MDMA (Ecstasy) Screen Benzodiazepines Screen Cocaine Screen U Marijuana (THC) Screen 12/04/18 12/04/18 12/04/18 06:32 07:44 14:00 WBC RBC Hgb Hct MCV MCH MCHC RDW Plt Count MPV Absolute Neuts (auto) Neutrophils % Lymphocytes % Monocytes % Eosinophils % Basophils % Nucleated RBC % PT with INR 12.50 INR 1.06 PTT (Actin FS) 30.9 Sodium Potassium Chloride Carbon Dioxide Anion Gap BUN Creatinine Est GFR (CKD-EPI)AfAm Est GFR (CKD-EPI)NonAf Random Glucose Calcium Total Bilirubin AST ALT Alkaline Phosphatase Creatine Kinase 48 Troponin I 0.02 B-Natriuretic Peptide Total Protein Albumin TSH Free T4 Opiates Screen Negative Methadone Screen Negative Barbiturate Screen Negative Phencyclidine Screen Negative Ur Amphetamines Screen Negative MDMA (Ecstasy) Screen Negative Benzodiazepines Screen Negative Cocaine Screen Negative U Marijuana (THC) Screen Negative 12/04/18 21:07 WBC RBC Hgb Hct MCV MCH MCHC RDW Plt Count MPV Absolute Neuts (auto) Neutrophils % Lymphocytes % Monocytes % Eosinophils % Basophils % Nucleated RBC % PT with INR INR PTT (Actin FS) Sodium Potassium Chloride Carbon Dioxide Anion Gap BUN Creatinine Est GFR (CKD-EPI)AfAm Est GFR (CKD-EPI)NonAf Random Glucose Calcium Total Bilirubin AST ALT Alkaline Phosphatase Creatine Kinase Troponin I 0.02 B-Natriuretic Peptide Total Protein Albumin TSH Free T4 Opiates Screen Methadone Screen Barbiturate Screen Phencyclidine Screen Ur Amphetamines Screen MDMA (Ecstasy) Screen Benzodiazepines Screen Cocaine Screen U Marijuana (THC) Screen Imaging - Results Chest X-ray: Image Reviewed (cm sternal sutures) EKG: Image Reviewed (a flutter 2;1) Problem List - Problems (1) Atrial flutter by electrocardiogram Code(s): I48.92 - UNSPECIFIED ATRIAL FLUTTER (2) Prophylactic measure Code(s): Z29.9 - ENCOUNTER FOR PROPHYLACTIC MEASURES, UNSPECIFIED (3) Sinus tachycardia Code(s): R00.0 - TACHYCARDIA, UNSPECIFIED (4) Anemia Code(s): D64.9 - ANEMIA, UNSPECIFIED (5) Atrial fibrillation Code(s): I48.91 - UNSPECIFIED ATRIAL FIBRILLATION (6) BPH (benign prostatic hyperplasia) Code(s): N40.0 - BENIGN PROSTATIC HYPERPLASIA WITHOUT LOWER URINRY TRACT SYMP (7) HTN (hypertension) Code(s): I10 - ESSENTIAL (PRIMARY) HYPERTENSION (8) Hx of CABG Code(s): Z95.1 - PRESENCE OF AORTOCORONARY BYPASS GRAFT (9) Hyperlipidemia Code(s): E78.5 - HYPERLIPIDEMIA, UNSPECIFIED (10) PAD (peripheral artery disease) Code(s): I73.9 - PERIPHERAL VASCULAR DISEASE, UNSPECIFIED (11) SHANA (acute kidney injury) Code(s): N17.9 - ACUTE KIDNEY FAILURE, UNSPECIFIED (12) Acute on chronic diastolic CHF (congestive heart failure) Code(s): I50.33 - ACUTE ON CHRONIC DIASTOLIC (CONGESTIVE) HEART FAILURE (13) Elevated troponin Code(s): R74.8 - ABNORMAL LEVELS OF OTHER SERUM ENZYMES (14) Old myocardial infarct Code(s): I25.2 - OLD MYOCARDIAL INFARCTION Assessment/Plan 63 year old male with a past medical history ofmultiple stents , CABG, [place] ( September 2018, s/p stenting at [facility]), CHF, hypertension, atrial fibrillaton (s/p ablation) aortic aneursym and psiorosis. Presented with new onset A flutter and decompensate CHF. Plan; Agree with AC rate/rhythm control. Telemetry IV lasix will f/u
[2018-12-05] MEDS ORDERED: dilTIAZem HCL 50 MG/10 ML - 10 ML VIAL IVPUSH ONE (12:26)
[2018-12-05 12:34] LABS: BASO % 0.5 % (0-2.0); EOS % 1.4 % (0-4.5); HEMATOCRIT 44.9 % (35.4-49); HEMOGLOBIN 14.7 GM/dL (11.7-16.9); LYMPH % 16.2 % (8-40); MCH 29.8 pg (25.7-33.7); MCHC 32.7 g/dl (32.0-35.9); MEAN CELL VOLUME 91.1 fl (80-96); MEAN PLT VOLUME 9.1 fl (7.5-11.1); MONO % 7.9 % (3.8-10.2); PLATELET COUNT 160 K/MM3 (134-434); RBC 4.93 M/mm3 (4.00-5.60); RDW 16.4 % (11.9-15.9); WHITE BLOOD COUNT 7.7 K/mm3 (4.0-10.0)
[2018-12-05 12:45] LABS: INR 2.44 (0.83-1.09)
[2018-12-05] MEDS ORDERED: DILTIAZEM INJECTION 125 MG in SODIUM CHLORIDE 100 ML IVPB SCH (12:45)
[2018-12-05 13:15] LABS: ALBUMIN 3.7 g/dl (3.4-5.0); BILIRUBIN,TOTAL 0.4 mg/dL (0.2-1); BLOOD UREA NITROGEN 17.2 mg/dL (7-18); CALCIUM 9.2 mg/dL (8.5-10.1); CREATININE 1.1 mg/dL (0.55-1.3); MAGNESIUM 1.7 mg/dL (1.8-2.4); PHOSPHOROUS 2.7 mg/dL (2.5-4.9); POTASSIUM 3.6 mmol/L (3.5-5.1); TOT PROT 7.5 g/dl (6.4-8.2)
[2018-12-05] MEDS ORDERED: MAGNESIUM OXIDE 400 MG TABLET (FP) PO ONE (13:57)
[2018-12-05] MEDS ORDERED: POTASSIUM CHLORIDE TABS 20 MEQ TABLET.ER (FP) PO ONE (13:57)
--- NOTE | 2018-12-05 14:35 | ECHO ---
Name: SARA LINNETTE Exam:Adult Echocardiogram Study Date: 12/05/2018 10:23 AM Age: 63 yrs Reason For Study: tachycardia, hypertension Height: 70 in Weight: 232 lb BSA: 2.2 m2 MMode/2D Measurements & Calculations IVSd: 1.5 cm Ao root diam: 2.9 cm LVIDd: 3.6 cm LA dimension: 4.6 cm LVIDs: 2.7 cm LVPWd: 1.4 cm LVPWs: 1.9 cm EDV(Teich): 56.1 ml ESV(Teich): 27.8 ml LVOT diam: 2.0 cm Doppler Measurements & Calculations Ao V2 max: 156.6 cm/sec LV V1 max P.5 mmHg Ao max P.8 mmHg LV V1 mean P.5 mmHg Ao V2 mean: 100.7 cm/sec LV V1 max: 154.0 cm/sec Ao mean P.8 mmHg LV V1 mean: 96.3 cm/sec Ao V2 VTI: 22.1 cm LV V1 VTI: 24.1 cm JOVAN(I,D): 3.6 cm2 JOVAN(V,D): 3.2 cm2 SV(LVOT): 79.3 ml TR max nathan: 350.2 cm/sec TR max P.1 mmHg PA V2 max: 118.8 cm/sec PA max P.7 mmHg Procedure A complete two-dimensional transthoracic echocardiogram was performed (2D, M-mode, Doppler and color flow Doppler). Left Ventricle The left ventricle is normal in size. There is mild concentric left ventricular hypertrophy. Left nimesh tricular systolic function is normal. Ejection Fraction = 55-60%. No regional wall motion abnormalities noted. Right Ventricle The right ventricle is normal size. The right ventricular systolic function is normal. RV systolic TD I is 15 cm/s. Atria The left atrium is mildly dilated. Right atrial size is normal. Mitral Valve There is mild mitral annular calcification. There is mild mitral regurgitation. Tricuspid Valve The tricuspid valve is normal in structure and function. There is mild tricuspid regurgitation. Pulmo nary artery systolic pressure is at least 52 mmHg if RA pressure is assumed 3 mmHg. Aortic Valve The aortic valve is normal in structure and function. No aortic regurgitation is present. Pulmonic Valve The pulmonic valve is not well visualized. Great Vessels The aortic root is normal size. Pericardium/Pleura There is no pericardial effusion. Interpretation Summary The left ventricle is normal in size. There is mild concentric left ventricular hypertrophy. Left ventricular systolic function is normal. No regional wall motion abnormalities noted. Ejection Fraction = 55-60%. The right ventricular systolic function is normal. The left atrium is mildly dilated. Right atrial size is normal. There is mild mitral annular calcification. There is mild mitral regurgitation. There is mild tricuspid regurgitation. Pulmonary artery systolic pressure is at least 52 mmHg if RA pressure is assumed 3 mmHg There is no pericardial effusion. Francesco Gonzalez MD 12/05/2018 02:34 PM
[2018-12-05] MEDS ORDERED: LORATADINE 10 MG TABLET PO ONE (19:46)
[2018-12-05] MEDS: ZOLPIDEM TARTRATE 5 MG TABLET PO PRN (21:58)
[2018-12-05] MEDS: ATORVASTATIN CA 80 MG TABLET (FP) PO SCH (21:59)
[2018-12-06] MEDS: FUROSEMIDE 40 MG/4 ML INJECTABLE VIAL IVPUSH SCH ×2 (06:28→15:09)
[2018-12-06] MEDS: guaiFENesin 200 MG/10 ML 10 ML UNIT-DOSE CUPS PO PRN (06:28)
[2018-12-06] MEDS: GABAPENTIN 400 MG CAPSULE (FP) PO SCH ×3 (06:28→21:50)
--- NOTE | 2018-12-06 07:47 | PN ---
Progress Note, Physician Chief Complaint: complaining of dry cough that interrupted his sleep History of Present Illness: Patient is a 63 year old male with a past medical history of [place] (September 2018, s/ p stenting at [facility]), CHF, hypertension, atrial fibrillaton (s/p ablation) aortic aneurysm and psiorosis. He presents to our ED presents with c/ o of cough, congestion and shortness of breath. Patient reports worsening shortness of breath for approximately 5 days. He is currently homeless and lives in a [facility] - Current Medication List Current Medications: Active Medications Acetaminophen (Tylenol -) 650 mg PO Q6H PRN PRN Reason: PAIN OR FEVER Last Admin: 12/05/18 21:58 Dose: 650 mg Aspirin (Asa -) 81 mg PO DAILY [facility] Last Admin: 12/05/18 09:40 Dose: 81 mg Atorvastatin Calcium (Lipitor -) 80 mg PO HS [facility] Last Admin: 12/05/18 21:59 Dose: 80 mg Benzocaine/Menthol (Cepacol Lozenge -) 1 each MM PRN PRN PRN Reason: SORE THROAT Last Admin: 12/05/18 21:39 Dose: 1 each Clopidogrel Bisulfate (Plavix -) 75 mg PO DAILY [facility] Last Admin: 12/05/18 09:40 Dose: 75 mg Docusate Sodium (Colace -) 100 mg PO DAILY [facility] Last Admin: 12/05/18 09:41 Dose: 100 mg Dronedarone (Multaq -) 400 mg PO BID [facility] Last Admin: 12/05/18 22:01 Dose: 400 mg Escitalopram Oxalate (Lexapro -) 20 mg PO DAILY [facility] Last Admin: 12/05/18 09:41 Dose: 20 mg Ferrous Sulfate (Feosol -) 325 mg PO BID [facility] Last Admin: 12/05/18 21:59 Dose: 325 mg Finasteride (Proscar -) 5 mg PO DAILY [facility] Last Admin: 12/05/18 09:40 Dose: 5 mg Furosemide (Lasix Injection -) 40 mg IVPUSH BID@0600,1400 [facility] Last Admin: 12/06/18 06:28 Dose: 40 mg Gabapentin (Neurontin -) 400 mg PO TID [facility] Last Admin: 12/06/18 06:28 Dose: 400 mg Guaifenesin (Robitussin -) 10 ml PO Q6H PRN PRN Reason: COUGH Last Admin: 10/08/19 06:28 Dose: 10 ml Diltiazem HCl 125 mg/ Sodium (Chloride) 125 mls @ 5 mls/hr IVPB TITR [facility]; Protocol Last Admin: 12/05/18 17:11 Dose: 5 mg/hr, 5 mls/hr Losartan Potassium (Cozaar -) 50 mg PO DAILY [facility] Last Admin: 12/05/18 09:41 Dose: 50 mg Metoprolol Tartrate (Lopressor -) 100 mg PO BID [facility] Last Admin: 12/05/18 21:59 Dose: 100 mg Metoprolol Tartrate (Lopressor Injection -) 5 mg IVPUSH Q4H PRN PRN Reason: TACHYCARDIA Last Admin: 12/05/18 00:03 Dose: 5 mg Pantoprazole Sodium (Protonix -) 40 mg PO DAILY [facility] Last Admin: 12/05/18 09:41 Dose: 40 mg Rivaroxaban (Xarelto) 20 mg PO DAILY [facility] Last Admin: 12/05/18 09:40 Dose: 20 mg Zolpidem Tartrate (Ambien -) 10 mg PO HS PRN PRN Reason: INSOMNIA Last Admin: 12/05/18 21:58 Dose: 10 mg - Objective Vital Signs: Vital Signs Temperature 97.9 F 12/06/18 06:00 Pulse Rate 102 H 12/06/18 06:00 Respiratory Rate 20 12/06/18 06:00 Blood Pressure 144/112 H 12/06/18 06:00 O2 Sat by Pulse Oximetry (%) 100 12/05/18 22:00 Additional Findings/Remarks: Constitutional: Yes: Well Nourished, No Distress, Calm Eyes: Yes: WNL, Conjunctiva Clear HENT: Yes: WNL, Atraumatic, Normocephalic Neck: Yes: WNL, Supple, Trachea Midline Cardiovascular: Yes: Tachycardia, Pulse Irregular (AFlutter on monitor), Other ( HR in 110-120s presently) Respiratory: Yes: Regular, CTA Bilaterally Gastrointestinal: Yes: WNL, Normal Bowel Sounds ...Rectal Exam: Yes: Deferred Genitourinary: Yes: WNL Breast(s): Yes: WNL Musculoskeletal: Yes: WNL Extremities: Yes: WNL Edema: No Peripheral Pulses WNL: Yes Peripheral Pulses: Left Radial: 2+, Right Radial: 2+, Left Doralis Pedis: 2+, Right Dorsalis Pedis: 2+, Left Femoral: 2+, Right Femoral: 2+ Integumentary: Yes: WNL Neurological: Yes: WNL, Alert, Oriented ...Motor Strength: WNL Psychiatric: Yes: WNL Labs: CBC, BMP 12/05/18 11:45 12/05/18 11:45 INR, PTT INR 2.44 (0.83-1.09) H 12/05/18 11:45 Problem List - Problems (1) Atrial flutter by electrocardiogram Assessment/Plan: c/w metoprolol/multaq for rate control started on diltiazem gtt last night without much change in his HR PO diltiazem started today at 90mg q6 wean gtt to off after 2 doses of PO diltiazem TTE : EF 55-60%, mild MR/TR. PAS 52 appreciate cardiology consultation if HR does not respond to multiple attempts to chemically cardiovert/rate control will consider transferring to tertiary care center for electrical cardioverson and/or ablation Code(s): I48.92 - UNSPECIFIED ATRIAL FLUTTER (2) Prophylactic measure Assessment/Plan: FEN Fluids: adequate PO intake Electrolytes: monitor & replete as needed. Keep K>4.0, Mg >2.0 Nutrition: cardiac diet DVT c/w asa, plavix, xarelto Dispo Maintain om tele full code discharge planning Code(s): Z29.9 - ENCOUNTER FOR PROPHYLACTIC MEASURES, UNSPECIFIED (3) HTN (hypertension) Assessment/Plan: BP coming down c/w cozaar Code(s): I10 - ESSENTIAL (PRIMARY) HYPERTENSION (4) Hx of CABG Assessment/Plan: c/w asa,plavix Code(s): Z95.1 - PRESENCE OF AORTOCORONARY BYPASS GRAFT (5) Hyperlipidemia Assessment/Plan: c/w atorvastatin cardiac diet Code(s): E78.5 - HYPERLIPIDEMIA, UNSPECIFIED (6) CHF (congestive heart failure) Assessment/Plan: c/w lasix IV strict I/Os, weight daily Code(s): I50.9 - HEART FAILURE, UNSPECIFIED (7) BPH (benign prostatic hyperplasia) Assessment/Plan: c/w flomax Code(s): N40.0 - BENIGN PROSTATIC HYPERPLASIA WITHOUT LOWER URINRY TRACT SYMP Visit type - Emergency Visit Emergency Visit: Yes ED Registration Date: 12/05/18 Care time: The patient presented to the Emergency Department on the above date and was hospitalized for further evaluation of their emergent condition. - New Patient This patient is new to me today: No - Critical Care Critical Care patient: No - Discharge Referral Referred to [facility] No
[2018-12-06] MEDS: METOPROLOL TARTRATE 5 MG/5 ML VIAL IVPUSH PRN (07:48)
[2018-12-06] MEDS ORDERED: DILTIAZEM INJECTION 125 MG in SODIUM CHLORIDE 100 ML IVPB SCH (07:51)
[2018-12-06] MEDS ORDERED: dilTIAZem HCL 30 MG TABLET (FP) PO SCH (09:36)
[2018-12-06 09:50] LABS: BASO % 0.5 % (0-2.0); HEMOGLOBIN 14.8 GM/dL (11.7-16.9); LYMPH % 9.3 % (8-40); MCH 29.9 pg (25.7-33.7); MCHC 32.9 g/dl (32.0-35.9); MEAN CELL VOLUME 90.8 fl (80-96); MEAN PLT VOLUME 9.1 fl (7.5-11.1); MONO % 7.7 % (3.8-10.2); NEUT % 80.5 % (42.8-82.8); PLATELET COUNT 172 K/MM3 (134-434); RBC 4.95 M/mm3 (4.00-5.60); WHITE BLOOD COUNT 9.3 K/mm3 (4.0-10.0)
[2018-12-06] MEDS: dilTIAZem HCL 60 MG TABLET (FP) PO SCH ×2 (10:12→13:01)
[2018-12-06] MEDS: FINASTERIDE 5 MG TABLET (FP) PO SCH (10:13)
[2018-12-06] MEDS: METOPROLOL TARTRATE 50 MG TABLET (FP) PO SCH ×2 (10:13→21:50)
[2018-12-06] MEDS: DRONEDARONE HCL 400 MG TAB (FP) PO SCH ×2 (10:13→21:50)
[2018-12-06] MEDS: DOCUSATE SODIUM 100 MG CAPSULE (FP) PO SCH (10:13)
[2018-12-06] MEDS: RIVAROXABAN 20 MG TABLET PO SCH (10:13)
[2018-12-06] MEDS: LOSARTAN POTASSIUM 50 MG TABLET (FP) PO SCH (10:15)
[2018-12-06] MEDS: PANTOPRAZOLE 40 MG TABLET (FP) PO SCH (10:15)
[2018-12-06] MEDS: ASPIRIN 81 MG CHEWABLE TABLETS PO SCH (10:15)
[2018-12-06] MEDS: FERROUS SO4 325 MG TABLET (FP) PO SCH ×2 (10:15→21:50)
[2018-12-06] MEDS: ESCITALOPRAM OXALATE 20 MG TABLET (FP) PO SCH (10:15)
[2018-12-06] MEDS: CLOPIDOGREL BISULFATE 75 MG TABLET (FP) PO SCH (10:15)
[2018-12-06 10:26] LABS: ALBUMIN 3.8 g/dl (3.4-5.0); BILIRUBIN,TOTAL 0.6 mg/dL (0.2-1); BLOOD UREA NITROGEN 14.8 mg/dL (7-18); CREATININE 1.1 mg/dL (0.55-1.3); MAGNESIUM 1.8 mg/dL (1.8-2.4); POTASSIUM 3.6 mmol/L (3.5-5.1); TOT PROT 7.8 g/dl (6.4-8.2)
[2018-12-06] MEDS ORDERED: MAGNESIUM OXIDE 400 MG TABLET (FP) PO ONE (11:50)
[2018-12-06] MEDS ORDERED: POTASSIUM CHLORIDE TABS 20 MEQ TABLET.ER (FP) PO ONE (11:50)
[2018-12-06] MEDS: LEVOTHYROXINE NA 25 MCG TABLET (FP) PO SCH (12:24)
[2018-12-06] MEDS ORDERED: dilTIAZem HCL 60 MG TABLET (FP) PO SCH (15:09)
[2018-12-06] MEDS ORDERED: dilTIAZem HCL 60 MG TABLET (FP) ONE (16:41)
[2018-12-06] MEDS ORDERED: dilTIAZem HCL 30 MG TABLET (FP) ONE (16:41)
[2018-12-06] MEDS: ACETAMINOPHEN 325 MG TABLET (FP) PO PRN (17:32)
[2018-12-06] MEDS: DILTIAZEM 60 MG, DILTIAZEM 30 MG PO SCH (17:33)
[2018-12-06] MEDS: ATORVASTATIN CA 80 MG TABLET (FP) PO SCH (21:50)
[2018-12-06] MEDS: ZOLPIDEM TARTRATE 5 MG TABLET PO PRN (21:51)
--- NOTE | 2018-12-06 23:47 | PN ---
Progress Note, Physician Chief Complaint: Pt A&Ox3; ambulates slowly in room and hallway; easily fatigued. History of Present Illness: The patient is a 63 y/o male with a PMH of [place] (September 2018, s/p stenting x 17 @ [facility], the latest a few months ago), diastolic CHF, HTN, AFib (s/p ablation x 2, the first in [place] several years ago; the latest at [facility] in ? 2017) Aortic Aneursym, noncompliance to medications (e.g. pt says he oftens "forgets" to take aspirin), presents to ED c/o 5 day h/o cough, congestion and shortness of breath. Cough is productive (yellowish sputum) and patient reports worsening NELSON over the past 5 days. No active CP, no orthopnea, no lower extremity swelling. States he is lliving in a [facility] where some of the residents have been brought to the hospital with similar symptoms. The patient denies: headache, changes from baseline blurry vision abdominal pain , vomiting, diarrhea/constipation,dysuria/hematuria, numbness/tingling. Surgical: CABG, Cardiac Stent x17, the latest a few months ago; s/p ablation x 2 for AF Allergy: Penicillin [facility] [place] [facility]: [place] - Current Medication List Current Medications: Active Medications Acetaminophen (Tylenol -) 650 mg PO Q6H PRN PRN Reason: PAIN OR FEVER Last Admin: 12/06/18 17:32 Dose: 650 mg Aspirin (Asa -) 81 mg PO DAILY [facility] Last Admin: 12/06/18 10:15 Dose: 81 mg Atorvastatin Calcium (Lipitor -) 80 mg PO HS [facility] Last Admin: 12/06/18 21:50 Dose: 80 mg Benzocaine/Menthol (Cepacol Lozenge -) 1 each MM PRN PRN PRN Reason: SORE THROAT Last Admin: 12/05/18 21:39 Dose: 1 each Clopidogrel Bisulfate (Plavix -) 75 mg PO DAILY [facility] Last Admin: 12/06/18 10:15 Dose: 75 mg Diltiazem HCl 60 mg/ Diltiazem (HCl 30 mg) 90 mg PO Q6HPO [facility] Last Admin: 12/06/18 17:33 Dose: 90 mg Docusate Sodium (Colace -) 100 mg PO DAILY [facility] Last Admin: 12/06/18 10:13 Dose: 100 mg Dronedarone (Multaq -) 400 mg PO BID [facility] Last Admin: 12/06/18 21:50 Dose: 400 mg Escitalopram Oxalate (Lexapro -) 20 mg PO DAILY [facility] Last Admin: 12/06/18 10:15 Dose: 20 mg Ferrous Sulfate (Feosol -) 325 mg PO BID [facility] Last Admin: 12/06/18 21:50 Dose: 325 mg Finasteride (Proscar -) 5 mg PO DAILY [facility] Last Admin: 12/06/18 10:13 Dose: 5 mg Furosemide (Lasix Injection -) 40 mg IVPUSH BID@0600,1400 [facility] Last Admin: 12/06/18 15:09 Dose: 40 mg Gabapentin (Neurontin -) 400 mg PO TID [facility] Last Admin: 12/06/18 21:50 Dose: 400 mg Guaifenesin (Robitussin -) 10 ml PO Q6H PRN PRN Reason: COUGH Last Admin: 12/06/18 06:28 Dose: 10 ml Diltiazem HCl 125 mg/ Sodium (Chloride) 125 mls @ 10 mls/hr IVPB TITR [facility]; Protocol Last Titration: 12/06/18 15:10 Dose: 15 mg/hr, 15 mls/hr Levothyroxine Sodium (Synthroid -) 25 mcg PO DAILY@0700 [facility] Last Admin: 12/06/18 12:24 Dose: Not Given Losartan Potassium (Cozaar -) 50 mg PO DAILY [facility] Last Admin: 12/06/18 10:15 Dose: 50 mg Metoprolol Tartrate (Lopressor -) 100 mg PO BID [facility] Last Admin: 12/06/18 21:50 Dose: 100 mg Metoprolol Tartrate (Lopressor Injection -) 5 mg IVPUSH Q4H PRN PRN Reason: TACHYCARDIA Last Admin: 12/06/18 07:48 Dose: 5 mg Pantoprazole Sodium (Protonix -) 40 mg PO DAILY [facility] Last Admin: 12/06/18 10:15 Dose: 40 mg Rivaroxaban (Xarelto) 20 mg PO DAILY [facility] Last Admin: 12/06/18 10:13 Dose: 20 mg Zolpidem Tartrate (Ambien -) 10 mg PO HS PRN PRN Reason: INSOMNIA Last Admin: 12/06/18 21:51 Dose: 10 mg - Objective Vital Signs: Vital Signs Temperature 99.2 F 12/06/18 17:00 Pulse Rate 100 H 12/06/18 17:00 Respiratory Rate 20 12/06/18 17:00 Blood Pressure 121/88 12/06/18 17:00 O2 Sat by Pulse Oximetry (%) 100 12/06/18 09:00 Constitutional: Yes: Calm Eyes: Yes: WNL HENT: Yes: WNL Neck: Yes: WNL Cardiovascular: Yes: Pulse Irregular (varies), S1 Respiratory: Yes: WNL Gastrointestinal: Yes: Soft ...Rectal Exam: Yes: Deferred Genitourinary: No: Anuria Musculoskeletal: Yes: WNL Extremities: Yes: WNL Edema: No Peripheral Pulses WNL: Yes Integumentary: Yes: WNL Neurological: Yes: WNL ...Motor Strength: WNL Psychiatric: Yes: WNL Labs: CBC, BMP 12/06/18 09:25 12/06/18 09:25 INR, PTT INR 2.44 (0.83-1.09) H 12/05/18 11:45 Abnormal Lab Results 12/04/18 12/04/18 12/09/18 06:00 06:00 06:52 RDW 16.2 H Potassium 3.4 L Carbon Dioxide Anion Gap 7 L BUN 21.7 H AST 13 L B-Natriuretic Peptide 3745.6 H Albumin Free T4 1.17 H 12/09/18 06:52 RDW Potassium Carbon Dioxide 36 H Anion Gap 3 L BUN 25.0 H AST 10 L B-Natriuretic Peptide Albumin 3.3 L Free T4 - ....Imaging Other: Image Reviewed (telemetry: atrial flutter) Problem List - Problems (1) Atrial flutter Assessment/Plan: EKG: atrial flutterr with 2:1 AV block. ECHO: Code(s): I48.92 - UNSPECIFIED ATRIAL FLUTTER (2) Hypothyroid Code(s): E03.9 - HYPOTHYROIDISM, UNSPECIFIED (3) HTN (hypertension) Code(s): I10 - ESSENTIAL (PRIMARY) HYPERTENSION (4) Hyperlipidemia Code(s): E78.5 - HYPERLIPIDEMIA, UNSPECIFIED (5) Acute on chronic diastolic CHF (congestive heart failure) Code(s): I50.33 - ACUTE ON CHRONIC DIASTOLIC (CONGESTIVE) HEART FAILURE
[2018-12-07] MEDS ORDERED: dilTIAZem HCL 60 MG TABLET (FP) ONE (00:03)
[2018-12-07] MEDS ORDERED: dilTIAZem HCL 30 MG TABLET (FP) ONE (00:03)
[2018-12-07] MEDS: DILTIAZEM 60 MG, DILTIAZEM 30 MG PO SCH ×2 (00:43→06:29)
[2018-12-07] MEDS: FUROSEMIDE 40 MG/4 ML INJECTABLE VIAL IVPUSH SCH (06:29)
[2018-12-07] MEDS: LEVOTHYROXINE NA 25 MCG TABLET (FP) PO SCH (06:42)
[2018-12-07] MEDS: GABAPENTIN 400 MG CAPSULE (FP) PO SCH ×3 (06:42→23:35)
[2018-12-07 07:03] LABS: BASO % 0.3 % (0-2.0); EOS % 1.1 % (0-4.5); HEMATOCRIT 41.8 % (35.4-49); HEMOGLOBIN 13.8 GM/dL (11.7-16.9); LYMPH % 7.8 % (8-40); MCH 29.8 pg (25.7-33.7); MCHC 33.1 g/dl (32.0-35.9); MEAN CELL VOLUME 90.1 fl (80-96); MEAN PLT VOLUME 9.3 fl (7.5-11.1); MONO % 7.3 % (3.8-10.2); NEUT % 83.5 % (42.8-82.8); PLATELET COUNT 194 K/MM3 (134-434); RBC 4.64 M/mm3 (4.00-5.60); RDW 15.7 % (11.9-15.9)
--- NOTE | 2018-12-07 07:32 | PN ---
Progress Note, Physician Chief Complaint: states his heart rate was better last night and is anxious to go home History of Present Illness: Patient is a 63 year old male with a past medical history of [place] (September 2018, s/ p stenting at [facility]), CHF, hypertension, atrial fibrillaton (s/p ablation) aortic aneurysm and psiorosis. He presents to our ED presents with c/ o of cough, congestion and shortness of breath. Patient reports worsening shortness of breath for approximately 5 days. He is currently homeless and lives in a correction - Current Medication List Current Medications: Active Medications Acetaminophen (Tylenol -) 650 mg PO Q6H PRN PRN Reason: PAIN OR FEVER Last Admin: 12/06/18 17:32 Dose: 650 mg Aspirin (Asa -) 81 mg PO DAILY [facility] Last Admin: 12/06/18 10:15 Dose: 81 mg Atorvastatin Calcium (Lipitor -) 80 mg PO HS [facility] Last Admin: 12/06/18 21:50 Dose: 80 mg Benzocaine/Menthol (Cepacol Lozenge -) 1 each MM PRN PRN PRN Reason: SORE THROAT Last Admin: 12/05/18 21:39 Dose: 1 each Clopidogrel Bisulfate (Plavix -) 75 mg PO DAILY [facility] Last Admin: 12/06/18 10:15 Dose: 75 mg Diltiazem HCl 60 mg/ Diltiazem (HCl 30 mg) 90 mg PO Q6HPO [facility] Last Admin: 12/07/18 06:29 Dose: Not Given Docusate Sodium (Colace -) 100 mg PO DAILY [facility] Last Admin: 12/06/18 10:13 Dose: 100 mg Dronedarone (Multaq -) 400 mg PO BID [facility] Last Admin: 12/06/18 21:50 Dose: 400 mg Escitalopram Oxalate (Lexapro -) 20 mg PO DAILY [facility] Last Admin: 12/06/18 10:15 Dose: 20 mg Ferrous Sulfate (Feosol -) 325 mg PO BID [facility] Last Admin: 12/06/18 21:50 Dose: 325 mg Finasteride (Proscar -) 5 mg PO DAILY [facility] Last Admin: 12/06/18 10:13 Dose: 5 mg Furosemide (Lasix Injection -) 40 mg IVPUSH BID@0600,1400 [facility] Last Admin: 12/07/18 06:29 Dose: Not Given Gabapentin (Neurontin -) 400 mg PO TID [facility] Last Admin: 12/07/18 06:42 Dose: 400 mg Guaifenesin (Robitussin -) 10 ml PO Q6H PRN PRN Reason: COUGH Last Admin: 12/06/18 06:28 Dose: 10 ml Diltiazem HCl 125 mg/ Sodium (Chloride) 125 mls @ 10 mls/hr IVPB TITR [facility]; Protocol Last Titration: 12/07/18 00:50 Dose: 0 mg/hr, 0 mls/hr Levothyroxine Sodium (Synthroid -) 25 mcg PO DAILY@0700 [facility] Last Admin: 12/07/18 06:42 Dose: 25 mcg Losartan Potassium (Cozaar -) 50 mg PO DAILY [facility] Last Admin: 12/06/18 10:15 Dose: 50 mg Metoprolol Tartrate (Lopressor -) 100 mg PO BID [facility] Last Admin: 12/06/18 21:50 Dose: 100 mg Metoprolol Tartrate (Lopressor Injection -) 5 mg IVPUSH Q4H PRN PRN Reason: TACHYCARDIA Last Admin: 12/06/18 07:48 Dose: 5 mg Pantoprazole Sodium (Protonix -) 40 mg PO DAILY [facility] Last Admin: 12/06/18 10:15 Dose: 40 mg Rivaroxaban (Xarelto) 20 mg PO DAILY [facility] Last Admin: 12/06/18 10:13 Dose: 20 mg Zolpidem Tartrate (Ambien -) 10 mg PO HS PRN PRN Reason: INSOMNIA Last Admin: 12/06/18 21:51 Dose: 10 mg - Objective Vital Signs: Vital Signs Temperature 98.5 F 12/07/18 05:52 Pulse Rate 74 12/07/18 05:52 Respiratory Rate 20 12/07/18 05:52 Blood Pressure 110/76 12/07/18 05:52 O2 Sat by Pulse Oximetry (%) 98 12/06/18 21:00 Additional Findings/Remarks: Constitutional: Yes: Well Nourished, No Distress, Calm Eyes: Yes: WNL, Conjunctiva Clear HENT: Yes: WNL, Atraumatic, Normocephalic Neck: Yes: WNL, Supple, Trachea Midline Cardiovascular: Yes: Tachycardia, Pulse Irregular (AFlutter on monitor), Other ( HR in 100s presently) Respiratory: Yes: Regular, CTA Bilaterally Gastrointestinal: Yes: WNL, Normal Bowel Sounds ...Rectal Exam: Yes: Deferred Genitourinary: Yes: WNL Breast(s): Yes: WNL Musculoskeletal: Yes: WNL Extremities: Yes: WNL Edema: No Peripheral Pulses WNL: Yes Peripheral Pulses: Left Radial: 2+, Right Radial: 2+, Left Doralis Pedis: 2+, Right Dorsalis Pedis: 2+, Left Femoral: 2+, Right Femoral: 2+ Integumentary: Yes: WNL Neurological: Yes: WNL, Alert, Oriented ...Motor Strength: WNL Psychiatric: Yes: WNL Labs: INR, PTT INR 2.44 (0.83-1.09) H 12/05/18 11:45 Problem List - Problems (1) Atrial flutter by electrocardiogram Assessment/Plan: c/w metoprolol/multaq for rate control diltiazem gtt weaned to off PO diltiazem changes to CX 360mg qd TTE : EF 55-60%, mild MR/TR. PAS 52 appreciate cardiology consultation if HR does not respond to multiple attempts to chemically cardiovert/rate control will consider transferring to tertiary care center for electrical cardioverson and/or ablation or transfer care to [facility] EP dept Code(s): I48.92 - UNSPECIFIED ATRIAL FLUTTER (2) Prophylactic measure Assessment/Plan: FEN Fluids: adequate PO intake Electrolytes: monitor & replete as needed. Keep K>4.0, Mg >2.0 Nutrition: cardiac diet DVT c/w asa, plavix, xarelto Dispo Maintain om tele full code discharge planning Code(s): Z29.9 - ENCOUNTER FOR PROPHYLACTIC MEASURES, UNSPECIFIED (3) HTN (hypertension) Assessment/Plan: normotensive now c/w cozaar Code(s): I10 - ESSENTIAL (PRIMARY) HYPERTENSION (4) Hx of CABG Assessment/Plan: c/w asa,plavix Code(s): Z95.1 - PRESENCE OF AORTOCORONARY BYPASS GRAFT (5) Hyperlipidemia Assessment/Plan: c/w atorvastatin cardiac diet Code(s): E78.5 - HYPERLIPIDEMIA, UNSPECIFIED (6) CHF (congestive heart failure) Assessment/Plan: Cr increased to 1.5. change lasix to PO continue to monitor cr strict I/Os, weight daily Code(s): I50.9 - HEART FAILURE, UNSPECIFIED (7) BPH (benign prostatic hyperplasia) Assessment/Plan: c/w flomax Code(s): N40.0 - BENIGN PROSTATIC HYPERPLASIA WITHOUT LOWER URINRY TRACT SYMP (8) Hypothyroid Assessment/Plan: TSH 4.29, T4 1.17 start synthroid 25mcg Code(s): E03.9 - HYPOTHYROIDISM, UNSPECIFIED Visit type - Emergency Visit Emergency Visit: Yes ED Registration Date: 12/05/18 Care time: The patient presented to the Emergency Department on the above date and was hospitalized for further evaluation of their emergent condition. - New Patient This patient is new to me today: No - Critical Care Critical Care patient: No - Discharge Referral Referred to [facility] Med P.C.: No
[2018-12-07 07:39] LABS: ALBUMIN 3.2 g/dl (3.4-5.0); BILIRUBIN,TOTAL 0.5 mg/dL (0.2-1); BLOOD UREA NITROGEN 20.9 mg/dL (7-18); CALCIUM 8.8 mg/dL (8.5-10.1); CREATININE 1.5 mg/dL (0.55-1.3); MAGNESIUM 1.8 mg/dL (1.8-2.4); TOT PROT 6.8 g/dl (6.4-8.2)
[2018-12-07] MEDS: DRONEDARONE HCL 400 MG TAB (FP) PO SCH ×2 (10:39→21:35)
[2018-12-07] MEDS: FERROUS SO4 325 MG TABLET (FP) PO SCH ×2 (10:39→21:35)
[2018-12-07] MEDS: RIVAROXABAN 20 MG TABLET PO SCH (10:39)
[2018-12-07] MEDS: DOCUSATE SODIUM 100 MG CAPSULE (FP) PO SCH (10:39)
[2018-12-07] MEDS: CLOPIDOGREL BISULFATE 75 MG TABLET (FP) PO SCH (10:39)
[2018-12-07] MEDS: FINASTERIDE 5 MG TABLET (FP) PO SCH (10:39)
[2018-12-07] MEDS: METOPROLOL TARTRATE 50 MG TABLET (FP) PO SCH ×2 (10:40→21:35)
[2018-12-07] MEDS: PANTOPRAZOLE 40 MG TABLET (FP) PO SCH (10:40)
[2018-12-07] MEDS: ASPIRIN 81 MG CHEWABLE TABLETS PO SCH (10:40)
[2018-12-07] MEDS: ESCITALOPRAM OXALATE 20 MG TABLET (FP) PO SCH (10:40)
[2018-12-07] MEDS: LOSARTAN POTASSIUM 50 MG TABLET (FP) PO SCH (10:40)
--- NOTE | 2018-12-07 12:36 | PN ---
Progress Note, Physician History of Present Illness: Patient is a 63 year old male with a past medical history of [place] (September 2018, s/ p stenting at [facility]), CHF, hypertension, atrial fibrillaton (s/p ablation) aortic aneursym and psiorosis. He presents to our ED presents with c/ o of cough, congestion and shortness of breath. Patient reports worsening shortness of breath for approximately 5 days. He is currently homeless and lives in a fci and has had sick contacts. He denies chest pain and reports taking his medications including the metoprolol. He denies orthopnea, no lower extremity swelling. In the ED he was noted to have uncontrolled hypertension, tachycardia with aflutter and has been ruled out for PE with negative CTA. He will be monitored on tele. Patient recently admitted on 07/2018 for bilateral lower ext pain and and CTA was done. Patient was instructed to follow up with Dr. Cheek for an out patient ER course was notable for: (1) ekg; aflutter 122, with no specific t wave abnormality (2) uncontrolled hypertension (3) prolonged qtc (4) chest cta negative for PE PMH reportedly "one vessel diseasse"; CABG done about 5 yrs ago. Pt reports having had 8 stents prior to CABG, and "8 or 9 more" since then, the most recent reportedly a 4 months ago at [place] when he was having an [place]). - Current Medication List Current Medications: Active Medications Acetaminophen (Tylenol -) 650 mg PO Q6H PRN PRN Reason: PAIN OR FEVER Last Admin: 12/06/18 17:32 Dose: 650 mg Aspirin (Asa -) 81 mg PO DAILY [facility] Last Admin: 12/07/18 10:40 Dose: 81 mg Atorvastatin Calcium (Lipitor -) 80 mg PO HS [facility] Last Admin: 12/06/18 21:50 Dose: 80 mg Benzocaine/Menthol (Cepacol Lozenge -) 1 each MM PRN PRN PRN Reason: SORE THROAT Last Admin: 12/05/18 21:39 Dose: 1 each Clopidogrel Bisulfate (Plavix -) 75 mg PO DAILY [facility] Last Admin: 12/07/18 10:39 Dose: 75 mg Diltiazem HCl (Cardizem Cd -) 360 mg PO DAILY [facility] Docusate Sodium (Colace -) 100 mg PO DAILY [facility] Last Admin: 12/07/18 10:39 Dose: 100 mg Dronedarone (Multaq -) 400 mg PO BID [facility] Last Admin: 12/07/18 10:39 Dose: 400 mg Escitalopram Oxalate (Lexapro -) 20 mg PO DAILY [facility] Last Admin: 12/07/18 10:40 Dose: 20 mg Ferrous Sulfate (Feosol -) 325 mg PO BID [facility] Last Admin: 12/07/18 10:39 Dose: 325 mg Finasteride (Proscar -) 5 mg PO DAILY [facility] Last Admin: 12/07/18 10:39 Dose: 5 mg Furosemide (Lasix -) 40 mg PO BID@0600,1400 [facility] Gabapentin (Neurontin -) 400 mg PO TID [facility] Last Admin: 12/07/18 06:42 Dose: 400 mg Guaifenesin (Robitussin -) 10 ml PO Q6H PRN PRN Reason: COUGH Last Admin: 12/06/18 06:28 Dose: 10 ml Levothyroxine Sodium (Synthroid -) 25 mcg PO DAILY@0700 [facility] Last Admin: 12/07/18 06:42 Dose: 25 mcg Losartan Potassium (Cozaar -) 50 mg PO DAILY [facility] Last Admin: 12/07/18 10:40 Dose: 50 mg Metoprolol Tartrate (Lopressor -) 100 mg PO BID [facility] Last Admin: 12/07/18 10:40 Dose: 100 mg Metoprolol Tartrate (Lopressor Injection -) 5 mg IVPUSH Q4H PRN PRN Reason: TACHYCARDIA Last Admin: 12/06/18 07:48 Dose: 5 mg Pantoprazole Sodium (Protonix -) 40 mg PO DAILY [facility] Last Admin: 12/07/18 10:40 Dose: 40 mg Rivaroxaban (Xarelto) 20 mg PO DAILY [facility] Last Admin: 12/07/18 10:39 Dose: 20 mg Zolpidem Tartrate (Ambien -) 10 mg PO HS PRN PRN Reason: INSOMNIA Last Admin: 12/06/18 21:51 Dose: 10 mg - Objective Vital Signs: Vital Signs Temperature 98 F 12/07/18 09:00 Pulse Rate 118 H 12/07/18 09:00 Respiratory Rate 20 12/07/18 09:00 Blood Pressure 126/92 12/07/18 09:00 O2 Sat by Pulse Oximetry (%) 98 12/06/18 21:00 Eyes: Yes: WNL, Conjunctiva Clear, EOM Intact HENT: Yes: WNL, Atraumatic, Normocephalic Neck: Yes: WNL, Supple, Trachea Midline Cardiovascular: Yes: WNL, Pulse Irregular Respiratory: Yes: WNL, Regular, CTA Bilaterally Gastrointestinal: Yes: WNL, Normal Bowel Sounds Genitourinary: Yes: WNL Musculoskeletal: Yes: WNL Extremities: Yes: WNL Edema: No Integumentary: Yes: WNL Neurological: Yes: WNL, Alert, Oriented ...Motor Strength: WNL Psychiatric: Yes: WNL Labs: CBC, BMP 12/07/18 05:40 12/07/18 05:40 INR, PTT INR 2.44 (0.83-1.09) H 12/05/18 11:45 Problem List - Problems (1) Atrial flutter by electrocardiogram Code(s): I48.92 - UNSPECIFIED ATRIAL FLUTTER (2) Prophylactic measure Code(s): Z29.9 - ENCOUNTER FOR PROPHYLACTIC MEASURES, UNSPECIFIED (3) Sinus tachycardia Code(s): R00.0 - TACHYCARDIA, UNSPECIFIED (4) Anemia Code(s): D64.9 - ANEMIA, UNSPECIFIED (5) Atrial fibrillation Code(s): I48.91 - UNSPECIFIED ATRIAL FIBRILLATION (6) BPH (benign prostatic hyperplasia) Code(s): N40.0 - BENIGN PROSTATIC HYPERPLASIA WITHOUT LOWER URINRY TRACT SYMP (7) HTN (hypertension) Code(s): I10 - ESSENTIAL (PRIMARY) HYPERTENSION (8) Hx of CABG Code(s): Z95.1 - PRESENCE OF AORTOCORONARY BYPASS GRAFT (9) Hyperlipidemia Code(s): E78.5 - HYPERLIPIDEMIA, UNSPECIFIED (10) PAD (peripheral artery disease) Code(s): I73.9 - PERIPHERAL VASCULAR DISEASE, UNSPECIFIED (11) SHANA (acute kidney injury) Code(s): N17.9 - ACUTE KIDNEY FAILURE, UNSPECIFIED (12) Acute on chronic diastolic CHF (congestive heart failure) Code(s): I50.33 - ACUTE ON CHRONIC DIASTOLIC (CONGESTIVE) HEART FAILURE (13) Elevated troponin Code(s): R74.8 - ABNORMAL LEVELS OF OTHER SERUM ENZYMES (14) Old myocardial infarct Code(s): I25.2 - OLD MYOCARDIAL INFARCTION Assessment/Plan 63 year old male with a past medical history ofmultiple stents , CABG, [place] ( September 2018, s/p stenting at [facility]), CHF, hypertension, atrial fibrillaton (s/p ablation) aortic aneursym and psiorosis. Presented with new onset A flutter and decompensate CHF. Plan; Agree with AC rate/rhythm control. Telemetry IV lasix change cardizem to cardizem cd 360 qd will f/u
[2018-12-07] MEDS: FUROSEMIDE 40 MG TABLET (FP) PO SCH (14:15)
[2018-12-07] MEDS: guaiFENesin 200 MG/10 ML 10 ML UNIT-DOSE CUPS PO PRN (17:58)
[2018-12-07] MEDS ORDERED: LORATADINE 10 MG TABLET PO ONE (20:42)
[2018-12-07] MEDS: ACETAMINOPHEN 325 MG TABLET (FP) PO PRN (21:34)
[2018-12-07] MEDS: ATORVASTATIN CA 80 MG TABLET (FP) PO SCH (21:35)
[2018-12-07] MEDS: ZOLPIDEM TARTRATE 5 MG TABLET PO PRN (23:35)
[2018-12-08] MEDS: GABAPENTIN 400 MG CAPSULE (FP) PO SCH ×3 (06:21→22:24)
[2018-12-08 06:22] LABS: BASO % 0.3 % (0-2.0); EOS % 1.9 % (0-4.5); HEMATOCRIT 43.5 % (35.4-49); HEMOGLOBIN 14.3 GM/dL (11.7-16.9); LYMPH % 12.9 % (8-40); MCHC 32.8 g/dl (32.0-35.9); MEAN CELL VOLUME 91.4 fl (80-96); MEAN PLT VOLUME 9.3 fl (7.5-11.1); MONO % 9.2 % (3.8-10.2); NEUT % 75.7 % (42.8-82.8); PLATELET COUNT 173 K/MM3 (134-434); RBC 4.76 M/mm3 (4.00-5.60); RDW 16.1 % (11.9-15.9); WHITE BLOOD COUNT 10.1 K/mm3 (4.0-10.0)
[2018-12-08] MEDS: LEVOTHYROXINE NA 25 MCG TABLET (FP) PO SCH (06:24)
[2018-12-08] MEDS: FUROSEMIDE 40 MG TABLET (FP) PO SCH ×2 (06:25→14:13)
[2018-12-08 06:46] LABS: ALBUMIN 3.2 g/dl (3.4-5.0); BILIRUBIN,TOTAL 0.6 mg/dL (0.2-1); BLOOD UREA NITROGEN 21.7 mg/dL (7-18); CREATININE 1.2 mg/dL (0.55-1.3); MAGNESIUM 1.9 mg/dL (1.8-2.4); POTASSIUM 3.8 mmol/L (3.5-5.1); TOT PROT 6.9 g/dl (6.4-8.2)
[2018-12-08] MEDS: ASPIRIN 81 MG CHEWABLE TABLETS PO SCH (09:35)
[2018-12-08] MEDS: CLOPIDOGREL BISULFATE 75 MG TABLET (FP) PO SCH (09:36)
[2018-12-08] MEDS: FINASTERIDE 5 MG TABLET (FP) PO SCH (09:36)
[2018-12-08] MEDS: DRONEDARONE HCL 400 MG TAB (FP) PO SCH (09:36)
[2018-12-08] MEDS: ESCITALOPRAM OXALATE 20 MG TABLET (FP) PO SCH (09:36)
[2018-12-08] MEDS: DOCUSATE SODIUM 100 MG CAPSULE (FP) PO SCH (09:36)
[2018-12-08] MEDS: FERROUS SO4 325 MG TABLET (FP) PO SCH ×2 (09:36→22:24)
--- NOTE | 2018-12-08 09:39 | PN ---
Physical Exam: SUBJECTIVE: Patient seen and examined. denies any chest pain or shortness of breath. OBJECTIVE: per cardiology: Pt remains in AF with RVR, with resting HR approximately 115 bpm , and HR increasing to >130 bpm with mild exertion. Given his hx of recent [place] and mulitple coronary stents, it is important to maintain HR at a lower rate. discontinue dronedarone, and start amiodarone IV, then PO. d/c with close monitoring with EP at [facility] as outpatient if heart rate better controlled. Vital Signs Period Temp Pulse Resp BP Sys/Plummer Pulse Ox Last 24 Hr 97.4 F-98.8 F 115-118 17-20 113-136/63-118 99 GENERAL: Awake, alert, and fully oriented, in no acute distress. HEAD: Normal with no signs of trauma. EYES: Pupils equal, round and reactive to light, extraocular movements intact, sclera anicteric, conjunctiva clear. No lid lag. EARS, NOSE, THROAT: Ears normal, nares patent, oropharynx clear without exudates. Moist mucous membranes. NECK: Normal range of motion, supple without lymphadenopathy, JVD, or masses. HEART: irregular [address] monitor. ABDOMEN: Soft, nontender, not distended, normoactive bowel sounds, no guarding, no rebound, no masses. No hepatomegaly or splenomegaly. MUSCULOSKELETAL: Normal range of motion at all joints. No bony deformities or tenderness. No CVA tenderness. UPPER EXTREMITIES: red raised patches/rash on bilateral arms. hx of psiorosis. LOWER EXTREMITIES: 2+ pulses, warm, well-perfused. No calf tenderness. No peripheral edema. NEUROLOGICAL: Normal speech. Normal gait. PSYCHIATRIC: Cooperative. Good eye contact. Appropriate mood and affect. Laboratory Results - last 24 hr 12/08/18 12/08/18 05:30 05:30 WBC 10.1 H RBC 4.76 Hgb 14.3 Hct 43.5 MCV 91.4 MCH 30.0 MCHC 32.8 RDW 16.1 H Plt Count 173 MPV 9.3 Absolute Neuts (auto) 7.6 Neutrophils % 75.7 Lymphocytes % 12.9 D Monocytes % 9.2 Eosinophils % 1.9 Basophils % 0.3 Nucleated RBC % 0 Sodium 140 Potassium 3.8 Chloride 102 Carbon Dioxide 34 H Anion Gap 4 L BUN 21.7 H Creatinine 1.2 Est GFR (CKD-EPI)AfAm 73.62 Est GFR (CKD-EPI)NonAf 63.52 Random Glucose 102 Calcium 9.0 Magnesium 1.9 Total Bilirubin 0.6 AST 8 L ALT 13 Alkaline Phosphatase 109 Total Protein 6.9 Albumin 3.2 L Active Medications Generic Name Dose Route Start Last Admin Trade Name Freq PRN Reason Stop Dose Admin Acetaminophen 650 mg 12/05/18 00:10 12/07/18 21:34 Tylenol - PO 650 mg Q6H PRN Administration PAIN OR FEVER Aspirin 81 mg 12/05/18 10:00 12/07/18 10:40 Asa - PO 81 mg DAILY [facility] Administration Atorvastatin Calcium 80 mg 12/04/18 22:00 12/07/18 21:35 Lipitor - PO 80 mg HS [facility] Administration Benzocaine/Menthol 1 each 12/04/18 08:16 12/05/18 21:39 Cepacol Lozenge - MM 1 each PRN PRN Administration SORE THROAT Clopidogrel Bisulfate 75 mg 12/05/18 10:00 12/07/18 10:39 Plavix - PO 75 mg DAILY [facility] Administration Diltiazem HCl 360 mg 12/07/18 11:45 12/07/18 13:08 Cardizem Cd - PO 360 mg DAILY [facility] Administration Docusate Sodium 100 mg 12/05/18 10:00 12/07/18 10:39 Colace - PO 100 mg DAILY [facility] Administration Dronedarone 400 mg 12/04/18 22:00 12/07/18 21:35 Multaq - PO 400 mg BID [facility] Administration Escitalopram Oxalate 20 mg 12/05/18 10:00 12/07/18 10:40 Lexapro - PO 20 mg DAILY [facility] Administration Ferrous Sulfate 325 mg 12/04/18 22:00 12/07/18 21:35 Feosol - PO 325 mg BID [facility] Administration Finasteride 5 mg 12/05/18 10:00 12/07/18 10:39 Proscar - PO 5 mg DAILY [facility] Administration Furosemide 40 mg 12/07/18 14:00 12/08/18 06:25 Lasix - PO 40 mg BID@0600,1400 [facility] Administration Gabapentin 400 mg 12/05/18 06:00 12/08/18 06:21 Neurontin - PO 400 mg TID [facility] Administration Guaifenesin 10 ml 12/05/18 08:55 12/07/18 17:58 Robitussin - PO 10 ml Q6H PRN Administration COUGH Levothyroxine Sodium 25 mcg 12/06/18 07:00 12/08/18 06:24 Synthroid - PO 25 mcg DAILY@0700 [facility] Administration Losartan Potassium 50 mg 12/05/18 10:00 12/07/18 10:40 Cozaar - PO 50 mg DAILY [facility] Administration Metoprolol Tartrate 100 mg 12/04/18 22:00 12/07/18 21:35 Lopressor - PO 100 mg BID [facility] Administration Metoprolol Tartrate 5 mg 12/04/18 17:34 12/06/18 07:48 Lopressor Injection - IVPUSH 5 mg Q4H PRN Administration TACHYCARDIA Pantoprazole Sodium 40 mg 12/05/18 10:00 12/07/18 10:40 Protonix - PO 40 mg DAILY [facility] Administration Rivaroxaban 20 mg 12/05/18 10:00 12/07/18 10:39 Xarelto PO 20 mg DAILY [facility] Administration Zolpidem Tartrate 5 mg 12/07/18 22:18 12/07/18 23:35 Ambien - PO 12/10/18 23:59 5 mg HS PRN Administration INSOMNIA ASSESSMENT/PLAN: Problem List - Problems (1) Acute on chronic diastolic CHF (congestive heart failure) Assessment/Plan: BNP 3000 on admission. on lasix 40mg PO bid with close monitoring of weights. monitor intake and output. monitor weights, intake and output Code(s): I50.33 - ACUTE ON CHRONIC DIASTOLIC (CONGESTIVE) HEART FAILURE (2) Atrial flutter by electrocardiogram Assessment/Plan: per cardiology: Pt remains in AF with RVR, with resting HR approximately 115 bpm , and HR increasing to >130 bpm with mild exertion. Given his hx of recent [place] and mulitple coronary stents, it is important to maintain HR at a lower rate. discontinue dronedarone, and start amiodarone IV, then PO. d/c with close monitoring with EP at [facility] as outpatient if heart rate better controlled. Code(s): I48.92 - UNSPECIFIED ATRIAL FLUTTER (3) BPH (benign prostatic hyperplasia) Assessment/Plan: continue flomax Code(s): N40.0 - BENIGN PROSTATIC HYPERPLASIA WITHOUT LOWER URINRY TRACT SYMP (4) HTN (hypertension) Assessment/Plan: hypertension better controlled Code(s): I10 - ESSENTIAL (PRIMARY) HYPERTENSION (5) Hyperlipidemia Assessment/Plan: continue home statin Code(s): E78.5 - HYPERLIPIDEMIA, UNSPECIFIED (6) PAD (peripheral artery disease) Assessment/Plan: seen by vascular on last admission, patient to follow up outpatient. Code(s): I73.9 - PERIPHERAL VASCULAR DISEASE, UNSPECIFIED (7) SHANA (acute kidney injury) Code(s): N17.9 - ACUTE KIDNEY FAILURE, UNSPECIFIED (8) Old myocardial infarct Assessment/Plan: monitor on tele patient with an extensive cardiac history cardiology consulted. Code(s): I25.2 - OLD MYOCARDIAL INFARCTION (9) Prophylactic measure Assessment/Plan: fen cardiac diet monitor electrolytes low salt on xarelto Code(s): Z29.9 - ENCOUNTER FOR PROPHYLACTIC MEASURES, UNSPECIFIED Visit type - Emergency Visit Emergency Visit: Yes ED Registration Date: 12/05/18 Care time: The patient presented to the Emergency Department on the above date and was hospitalized for further evaluation of their emergent condition. - New Patient This patient is new to me today: No - Critical Care Critical Care patient: No - Discharge Referral Referred to [facility] Med P.C[facility] No
[2018-12-08] MEDS: PANTOPRAZOLE 40 MG TABLET (FP) PO SCH (09:40)
[2018-12-08] MEDS: RIVAROXABAN 20 MG TABLET PO SCH (09:40)
[2018-12-08] MEDS: METOPROLOL TARTRATE 50 MG TABLET (FP) PO SCH ×2 (09:40→22:24)
[2018-12-08] MEDS: LOSARTAN POTASSIUM 50 MG TABLET (FP) PO SCH (09:40)
--- NOTE | 2018-12-08 10:27 | PN ---
Progress Note, Physician Chief Complaint: Pt A&Ox3; ambulates slowly in room and hallway; easily fatigued. History of Present Illness: The patient is a 63 y/o male with a PMH of [place] in September 2018-->stent at [facility]; hx of "17 stents over the past 5 or 6 years, 8 before the CABG about 5 yers ago"), diastolic CHF, HTN, AFib (s/p ablation x 2, the first in [place] several years ago; the latest at [facility] in ?2017) Aortic Aneursym, noncompliance to medications (e.g. pt says he oftens "forgets" to take aspirin) , presents to ED c/o 5 day h/o cough, congestion and shortness of breath. Cough is productive (yellowish sputum) and patient reports worsening NELSON over the past 5 days. No active CP, no orthopnea, no lower extremity swelling. States he is lliving in a nursing home where some of the residents have been brought to the hospital with similar symptoms. The patient denies: headache, changes from baseline blurry vision abdominal pain , vomiting, diarrhea/constipation,dysuria/hematuria, numbness/tingling. Surgical: CABG, Cardiac Stent x17, the latest a few months ago; s/p ablation x 2 for AF Allergy: Penicillin [facility] [place] [facility] [place] - Current Medication List Current Medications: Active Medications Acetaminophen (Tylenol -) 650 mg PO Q6H PRN PRN Reason: PAIN OR FEVER Last Admin: 12/07/18 21:34 Dose: 650 mg Aspirin (Asa -) 81 mg PO DAILY [facility] Last Admin: 12/08/18 09:35 Dose: 81 mg Atorvastatin Calcium (Lipitor -) 80 mg PO HS [facility] Last Admin: 12/07/18 21:35 Dose: 80 mg Benzocaine/Menthol (Cepacol Lozenge -) 1 each MM PRN PRN PRN Reason: SORE THROAT Last Admin: 12/05/18 21:39 Dose: 1 each Clopidogrel Bisulfate (Plavix -) 75 mg PO DAILY [facility] Last Admin: 12/08/18 09:36 Dose: 75 mg Diltiazem HCl (Cardizem Cd -) 360 mg PO DAILY [facility] Last Admin: 12/08/18 09:35 Dose: 360 mg Docusate Sodium (Colace -) 100 mg PO DAILY [facility] Last Admin: 12/08/18 09:36 Dose: 100 mg Dronedarone (Multaq -) 400 mg PO BID [facility] Last Admin: 12/08/18 09:36 Dose: 400 mg Escitalopram Oxalate (Lexapro -) 20 mg PO DAILY [facility] Last Admin: 12/08/18 09:36 Dose: 20 mg Ferrous Sulfate (Feosol -) 325 mg PO BID [facility] Last Admin: 12/08/18 09:36 Dose: 325 mg Finasteride (Proscar -) 5 mg PO DAILY [facility] Last Admin: 12/08/18 09:36 Dose: 5 mg Furosemide (Lasix -) 40 mg PO BID@0600,1400 [facility] Last Admin: 12/08/18 06:25 Dose: 40 mg Gabapentin (Neurontin -) 400 mg PO TID [facility] Last Admin: 12/08/18 06:21 Dose: 400 mg Guaifenesin (Robitussin -) 10 ml PO Q6H PRN PRN Reason: COUGH Last Admin: 12/07/18 17:58 Dose: 10 ml Levothyroxine Sodium (Synthroid -) 25 mcg PO DAILY@0700 [facility] Last Admin: 12/08/18 06:24 Dose: 25 mcg Losartan Potassium (Cozaar -) 50 mg PO DAILY [facility] Last Admin: 12/08/18 09:40 Dose: 50 mg Metoprolol Tartrate (Lopressor -) 100 mg PO BID [facility] Last Admin: 12/08/18 09:40 Dose: 100 mg Metoprolol Tartrate (Lopressor Injection -) 5 mg IVPUSH Q4H PRN PRN Reason: TACHYCARDIA Last Admin: 12/06/18 07:48 Dose: 5 mg Pantoprazole Sodium (Protonix -) 40 mg PO DAILY [facility] Last Admin: 12/08/18 09:40 Dose: 40 mg Rivaroxaban (Xarelto) 20 mg PO DAILY [facility] Last Admin: 12/08/18 09:40 Dose: 20 mg Zolpidem Tartrate (Ambien -) 5 mg PO HS PRN PRN Reason: INSOMNIA Stop: 12/10/18 23:59 Last Admin: 12/07/18 23:35 Dose: 5 mg - Objective Vital Signs: Vital Signs Temperature 97.4 F L 12/08/18 05:00 Pulse Rate 115 H 12/08/18 05:00 Respiratory Rate 20 12/08/18 05:00 Blood Pressure 114/63 12/08/18 05:00 O2 Sat by Pulse Oximetry (%) 99 12/07/18 21:00 Constitutional: Yes: No Distress, Obese Eyes: Yes: WNL HENT: Yes: WNL Neck: Yes: WNL Cardiovascular: Yes: S1 (varies in intensity), S2 Respiratory: Yes: WNL Musculoskeletal: Yes: WNL Extremities: Yes: WNL Edema: No Peripheral Pulses WNL: Yes Integumentary: Yes: WNL Neurological: Yes: WNL ...Motor Strength: WNL Psychiatric: Yes: WNL Labs: CBC, BMP 12/08/18 05:30 12/08/18 05:30 INR, PTT INR 2.44 (0.83-1.09) H 12/05/18 11:45 Abnormal Lab Results 12/04/18 12/04/18 12/09/18 06:00 06:00 06:52 RDW 16.2 H Potassium 3.4 L Carbon Dioxide Anion Gap 7 L BUN 21.7 H AST 13 L B-Natriuretic Peptide 3745.6 H Albumin Free T4 1.17 H 12/09/18 06:52 RDW Potassium Carbon Dioxide 36 H Anion Gap 3 L BUN 25.0 H AST 10 L B-Natriuretic Peptide Albumin 3.3 L Free T4 - ....Imaging Chest X-ray: Image Reviewed EKG: Image Reviewed Other: Image Reviewed (telemetry: atrial flutter with 2:1 AV block; VR 117 bpm.) Problem List - Problems (1) HTN (hypertension) Assessment/Plan: On metoprolol, losartan, amiodarone, furosemide. ECHO: normal LVEF; mild LVH; mild LAE; moderately severe pulmonary HTN. Code(s): I10 - ESSENTIAL (PRIMARY) HYPERTENSION (2) Hx of CABG Code(s): Z95.1 - PRESENCE OF AORTOCORONARY BYPASS GRAFT (3) Hyperlipidemia Code(s): E78.5 - HYPERLIPIDEMIA, UNSPECIFIED (4) PAD (peripheral artery disease) Code(s): I73.9 - PERIPHERAL VASCULAR DISEASE, UNSPECIFIED (5) Atrial flutter Assessment/Plan: Pt has been on IV amiodarone since yesterday; start PO. Remains in artial flutter with 2:1 AV block. Discuss[address] with Dr. Teodoro Enriquez, managing supervisor at [facility]. It is important to maintain control of VR, particularly with hx CAD/[place]. If pt is able to ambulate in am without significant increase in heart rate, will consider discharge home, with close and early followup by cardiology/EP. Discharge with amiodarone nelson 200 mg bid for 1-2 weeks, then reduce dose serially until 50-200 mg daily maintenance dose is reached. Pt may require further ablation therapy. Code(s): I48.92 - UNSPECIFIED ATRIAL FLUTTER (6) Hypokalemia Assessment/Plan: F/u levels 12/10/18. Keep K 4.0-4.5 Keep Mg 2.0-2.4 Keep PO4 2.5-4.9. Minimize use of diuretics. Electrolyte maintenance is particularly important in light of pt's arrhythmia. Code(s): E87.6 - HYPOKALEMIA (7) Myocardial infarct Assessment/Plan: hx ?[place] 09/2018-->the latest of multiple coronary stents. On ASA and clopidogrel. Now on rivaroxaban for atrial fib/flutter. Now on atorvastatin 80 mg daily; f/u lipid panel, and lower LDL accordingly. Code(s): I21.9 - ACUTE MYOCARDIAL INFARCTION, UNSPECIFIED
[2018-12-08] MEDS ORDERED: AMIODARONE IN DEXTROSE,ISO-OSM 150 MG/100 ML BAG IVPB ONE (11:56)
--- NOTE | 2018-12-08 12:19 | EKG ---
Test Reason : Blood Pressure : / mmHG Vent. Rate : 115 BPM Atrial Rate : 230 BPM P-R Int : 000 ms QRS Dur : 122 ms QT Int : 358 ms P-R-T Axes : -88 004 212 degrees QTc Int : 495 ms ATRIAL FLUTTER WITH 2:1 A-V CONDUCTION RSR' OR QR PATTERN IN V1 SUGGESTS RIGHT VENTRICULAR CONDUCTION DELAY LEFT VENTRICULAR HYPERTROPHY WITH QRS WIDENING AND REPOLARIZATION ABNORMALITY ABNORMAL ECG WHEN COMPARED WITH ECG OF 04-DEC-2018 15:02, NO SIGNIFICANT CHANGE WAS FOUND Confirmed by RUSSELL BAILEY MD ([id number]) on 12/08/2018 12:19:18 PM Referred By: Confirmed By:RUSSELL BAILEY MD
[2018-12-08] MEDS ORDERED: AMIODARONE IN DEXTROSE,ISO-OSM 360 MG/200 ML BAG IVPB ONE (13:00)
[2018-12-08] MEDS: guaiFENesin 200 MG/10 ML 10 ML UNIT-DOSE CUPS PO PRN (14:13)
[2018-12-08] MEDS: ACETAMINOPHEN 325 MG TABLET (FP) PO PRN (20:30)
[2018-12-08] MEDS: AMIODARONE IN DEXTROSE,ISO-OSM 360 MG/200 ML BAG IVPB SCH (20:45)
[2018-12-08] MEDS: ATORVASTATIN CA 80 MG TABLET (FP) PO SCH (22:24)
[2018-12-08] MEDS: ZOLPIDEM TARTRATE 5 MG TABLET PO PRN (22:25)
[2018-12-08] MEDS ORDERED: ZOLPIDEM TARTRATE 5 MG TABLET PO PRN (23:04)
[2018-12-08] MEDS ORDERED: ZOLPIDEM TARTRATE 5 MG TABLET PO ONE (23:45)
[2018-12-09] MEDS: LEVOTHYROXINE NA 25 MCG TABLET (FP) PO SCH (06:35)
[2018-12-09] MEDS: FUROSEMIDE 40 MG TABLET (FP) PO SCH ×2 (06:35→14:43)
[2018-12-09] MEDS: GABAPENTIN 400 MG CAPSULE (FP) PO SCH ×3 (06:35→21:56)
[2018-12-09 07:31] LABS: BASO % 0.3 % (0-2.0); HEMATOCRIT 43.4 % (35.4-49); HEMOGLOBIN 14.4 GM/dL (11.7-16.9); LYMPH % 11.9 % (8-40); MCH 29.9 pg (25.7-33.7); MCHC 33.3 g/dl (32.0-35.9); MEAN CELL VOLUME 89.7 fl (80-96); MEAN PLT VOLUME 9.1 fl (7.5-11.1); MONO % 7.3 % (3.8-10.2); NEUT % 78.5 % (42.8-82.8); PLATELET COUNT 189 K/MM3 (134-434); RBC 4.84 M/mm3 (4.00-5.60); RDW 16.2 % (11.9-15.9); WHITE BLOOD COUNT 8.7 K/mm3 (4.0-10.0)
[2018-12-09 07:59] LABS: ALBUMIN 3.3 g/dl (3.4-5.0); BILIRUBIN,TOTAL 0.4 mg/dL (0.2-1); CALCIUM 9.1 mg/dL (8.5-10.1); CREATININE 1.2 mg/dL (0.55-1.3); MAGNESIUM 1.9 mg/dL (1.8-2.4); POTASSIUM 3.5 mmol/L (3.5-5.1); TOT PROT 6.8 g/dl (6.4-8.2)
[2018-12-09] MEDS: FERROUS SO4 325 MG TABLET (FP) PO SCH ×2 (09:52→21:55)
[2018-12-09] MEDS: DOCUSATE SODIUM 100 MG CAPSULE (FP) PO SCH (09:52)
[2018-12-09] MEDS: CLOPIDOGREL BISULFATE 75 MG TABLET (FP) PO SCH (09:52)
[2018-12-09] MEDS: METOPROLOL TARTRATE 50 MG TABLET (FP) PO SCH ×2 (09:52→21:54)
[2018-12-09] MEDS: LOSARTAN POTASSIUM 50 MG TABLET (FP) PO SCH (09:52)
[2018-12-09] MEDS: ESCITALOPRAM OXALATE 20 MG TABLET (FP) PO SCH (09:52)
[2018-12-09] MEDS: RIVAROXABAN 20 MG TABLET PO SCH (09:52)
[2018-12-09] MEDS: FINASTERIDE 5 MG TABLET (FP) PO SCH (09:53)
[2018-12-09] MEDS: ASPIRIN 81 MG CHEWABLE TABLETS PO SCH (09:53)
[2018-12-09] MEDS: PANTOPRAZOLE 40 MG TABLET (FP) PO SCH (09:56)
--- NOTE | 2018-12-09 12:10 | PN ---
Physical Exam: SUBJECTIVE: Patient seen and examined at the baseline. Laying flat in bed, comfortable. denies chest pain, denies shortness of breath. OBJECTIVE: Patient is a 63 year old male with a past medical history of AL (September 2018, s/ p stenting at [facility]), CHF, hypertension, atrial fibrillaton (s/p ablation) aortic aneursym and psiorosis. He presents to our ED on 12/05/18 with c/o of cough, congestion and shortness of breath. Patient reports worsening shortness of breath for approximately 5 days. In the ED he was noted to have uncontrolled hypertension, tachycardia with aflutter and has been ruled out for PE with negative CTA. He will be monitored on tele. Patient recently admitted on 07/2018 for bilateral lower ext pain and and CTA was done. Patient was instructed to follow up with Dr. Cheek for an out patient per cardiology: Pt remains in AF with RVR, with resting HR approximately 115 bpm , and HR increasing to >130 bpm with mild exertion. Given his hx of recent AL and mulitple coronary stents, it is important to maintain HR at a lower rate. discontinue dronedarone, and start amiodarone IV, then PO. d/c with close monitoring with EP at [facility] as outpatient if heart rate better controlled. Vital Signs Period Temp Pulse Resp BP Sys/Plummer Pulse Ox Last 24 Hr 97.6 F-99.1 F 92-116 20-20 113-142/82-98 99-99 GENERAL: Awake, alert, and fully oriented, in no acute distress. HEAD: Normal with no signs of trauma. EYES: Pupils equal, round and reactive to light, extraocular movements intact, sclera anicteric, conjunctiva clear. No lid lag. EARS, NOSE, THROAT: Ears normal, nares patent, oropharynx clear without exudates. Moist mucous membranes. NECK: Normal range of motion, supple without lymphadenopathy, JVD, or masses. HEART: irregular 115 on medical office clerk @ rest. sinus tachycardia. ABDOMEN: Soft, nontender, not distended, normoactive bowel sounds, no guarding, no rebound, no masses. No hepatomegaly or splenomegaly. MUSCULOSKELETAL: Normal range of motion at all joints. No bony deformities or tenderness. No CVA tenderness. UPPER EXTREMITIES: red raised patches/rash on bilateral arms. hx of psiorosis. LOWER EXTREMITIES: 2+ pulses, warm, well-perfused. No calf tenderness. No peripheral edema. NEUROLOGICAL: Normal speech. Normal gait. PSYCHIATRIC: Cooperative. Good eye contact. Appropriate mood and affect Laboratory Results - last 24 hr 12/09/18 12/09/18 06:52 06:52 WBC 8.7 RBC 4.84 Hgb 14.4 Hct 43.4 MCV 89.7 MCH 29.9 MCHC 33.3 RDW 16.2 H Plt Count 189 MPV 9.1 Absolute Neuts (auto) 6.8 Neutrophils % 78.5 Lymphocytes % 11.9 Monocytes % 7.3 Eosinophils % 2.0 Basophils % 0.3 Nucleated RBC % 0 Sodium 139 Potassium 3.5 Chloride 100 Carbon Dioxide 36 H Anion Gap 3 L BUN 25.0 H Creatinine 1.2 Est GFR (CKD-EPI)AfAm 73.62 Est GFR (CKD-EPI)NonAf 63.52 Random Glucose 99 Calcium 9.1 Magnesium 1.9 Total Bilirubin 0.4 AST 10 L ALT 15 Alkaline Phosphatase 103 Total Protein 6.8 Albumin 3.3 L Active Medications Generic Name Dose Route Start Last Admin Trade Name Freq PRN Reason Stop Dose Admin Acetaminophen 650 mg 12/05/18 00:10 12/08/18 20:30 Tylenol - PO 650 mg Q6H PRN Administration PAIN OR FEVER Aspirin 81 mg 12/05/18 10:00 12/09/18 09:53 Asa - PO 81 mg DAILY [facility] Administration Atorvastatin Calcium 80 mg 12/04/18 22:00 12/08/18 22:24 Lipitor - PO 80 mg HS [facility] Administration Benzocaine/Menthol 1 each 12/04/18 08:16 12/05/18 21:39 Cepacol Lozenge - MM 1 each PRN PRN Administration SORE THROAT Clopidogrel Bisulfate 75 mg 12/05/18 10:00 12/09/18 09:52 Plavix - PO 75 mg DAILY [facility] Administration Docusate Sodium 100 mg 12/05/18 10:00 12/09/18 09:52 Colace - PO 100 mg DAILY [facility] Administration Escitalopram Oxalate 20 mg 12/05/18 10:00 12/09/18 09:52 Lexapro - PO 20 mg DAILY [facility] Administration Ferrous Sulfate 325 mg 12/04/18 22:00 12/09/18 09:52 Feosol - PO 325 mg BID [facility] Administration Finasteride 5 mg 12/05/18 10:00 12/09/18 09:53 Proscar - PO 5 mg DAILY [facility] Administration Furosemide 40 mg 12/07/18 14:00 12/09/18 06:35 Lasix - PO 40 mg BID@0600,1400 [facility] Administration Gabapentin 400 mg 12/05/18 06:00 12/09/18 06:35 Neurontin - PO 400 mg TID [facility] Administration Guaifenesin 10 ml 12/05/18 08:55 12/08/18 14:13 Robitussin - PO 10 ml Q6H PRN Administration COUGH Amiodarone HCl/Dextrose 360 mg in 200 mls @ 16.667 mls/hr 12/08/18 19:00 12/17 20:45 Nexterone 360 Mg/200 Ml Bag IVPB 16.667 mls/hr ASDIR [facility] Administration Protocol 0.5 MG/MIN Levothyroxine Sodium 25 mcg 12/06/18 07:00 12/09/18 06:35 Synthroid - PO 25 mcg DAILY@0700 [facility] Administration Losartan Potassium 50 mg 12/05/18 10:00 12/09/18 09:52 Cozaar - PO 50 mg DAILY [facility] Administration Metoprolol Tartrate 100 mg 12/04/18 22:00 12/09/18 09:52 Lopressor - PO 100 mg BID [facility] Administration Metoprolol Tartrate 5 mg 12/04/18 17:34 12/06/18 07:48 Lopressor Injection - IVPUSH 5 mg Q4H PRN Administration TACHYCARDIA Pantoprazole Sodium 40 mg 12/05/18 10:00 12/09/18 09:56 Protonix - PO 40 mg DAILY [facility] Administration Rivaroxaban 20 mg 12/05/18 10:00 12/09/18 09:52 Xarelto PO 20 mg DAILY [facility] Administration Zolpidem Tartrate 10 mg 12/09/18 22:00 Ambien - PO HS PRN INSOMNIA ASSESSMENT/PLAN: Problem List - Problems (1) Acute on chronic diastolic CHF (congestive heart failure) Assessment/Plan: BNP 3000 on admission. on lasix 40mg PO bid with close monitoring of weights. monitor intake and output. monitor weights, intake and output lungs clear to auscultation. stable oxygen on room air. Code(s): I50.33 - ACUTE ON CHRONIC DIASTOLIC (CONGESTIVE) HEART FAILURE (2) Atrial flutter by electrocardiogram Assessment/Plan: per cardiology: Pt remains in AF with RVR, with resting HR approximately 115 bpm , and HR increasing to >130 bpm with mild exertion. Given his hx of recent AL and mulitple coronary stents, it is important to maintain HR at a lower rate. discontinue dronedarone, and start amiodarone IV, then PO. d/c with close monitoring with EP at [facility] as outpatient if heart rate better controlled. Code(s): I48.92 - UNSPECIFIED ATRIAL FLUTTER (3) BPH (benign prostatic hyperplasia) Assessment/Plan: continue flomax Code(s): N40.0 - BENIGN PROSTATIC HYPERPLASIA WITHOUT LOWER URINRY TRACT SYMP (4) HTN (hypertension) Assessment/Plan: hypertension better controlled Code(s): I10 - ESSENTIAL (PRIMARY) HYPERTENSION (5) Hyperlipidemia Assessment/Plan: continue home statin Code(s): E78.5 - HYPERLIPIDEMIA, UNSPECIFIED (6) PAD (peripheral artery disease) Assessment/Plan: seen by vascular on last admission, patient to follow up outpatient. Code(s): I73.9 - PERIPHERAL VASCULAR DISEASE, UNSPECIFIED (7) SHANA (acute kidney injury) Code(s): N17.9 - ACUTE KIDNEY FAILURE, UNSPECIFIED (8) Old myocardial infarct Assessment/Plan: monitor on tele patient with an extensive cardiac history cardiology consulted. Code(s): I25.2 - OLD MYOCARDIAL INFARCTION (9) Prophylactic measure Assessment/Plan: fen cardiac diet monitor electrolytes low salt on xarelto Code(s): Z29.9 - ENCOUNTER FOR PROPHYLACTIC MEASURES, UNSPECIFIED Visit type - Emergency Visit Emergency Visit: Yes ED Registration Date: 12/05/18 Care time: The patient presented to the Emergency Department on the above date and was hospitalized for further evaluation of their emergent condition. - New Patient This patient is new to me today: No - Critical Care Critical Care patient: No - Discharge Referral Referred to [facility] No
[2018-12-09] MEDS: AMIODARONE HCL 200 MG TABLET (FP) PO SCH ×2 (16:37→21:54)
--- NOTE | 2018-12-09 19:06 | PN ---
Progress Note, Physician Chief Complaint: Pt A&Ox3; ambulates with less fatigue now; now chest pain, palpitations, or dyspnea. History of Present Illness: The patient is a 63 y/o male with a PMH of [place] in September 2018-->stent at [facility]; hx of "17 stents over the past 5 or 6 years, 8 before the CABG about 5 yers ago"), diastolic CHF, HTN, AFib (s/p ablation x 2, the first in [place] several years ago; the latest at [facility] in ?2017) Aortic Aneursym, noncompliance to medications (e.g. pt says he oftens "forgets" to take aspirin) , presents to ED c/o 5 day h/o cough, congestion and shortness of breath. Cough is productive (yellowish sputum) and patient reports worsening NELSON over the past 5 days. No active CP, no orthopnea, no lower extremity swelling. States he is lliving in a prison where some of the residents have been brought to the hospital with similar symptoms. The patient denies: headache, changes from baseline blurry vision abdominal pain , vomiting, diarrhea/constipation,dysuria/hematuria, numbness/tingling. Surgical: CABG, Cardiac Stent x17, the latest a few months ago; s/p ablation x 2 for AF Allergy: Penicillin [facility] [place] [facility]: [place] - Current Medication List Current Medications: Active Medications Acetaminophen (Tylenol -) 650 mg PO Q6H PRN PRN Reason: PAIN OR FEVER Last Admin: 12/08/18 20:30 Dose: 650 mg Amiodarone HCl (Cordarone -) 200 mg PO BID [facility] Last Admin: 12/09/18 16:37 Dose: 200 mg Aspirin (Asa -) 81 mg PO DAILY [facility] Last Admin: 12/09/18 09:53 Dose: 81 mg Atorvastatin Calcium (Lipitor -) 80 mg PO HS [facility] Last Admin: 12/08/18 22:24 Dose: 80 mg Benzocaine/Menthol (Cepacol Lozenge -) 1 each MM PRN PRN PRN Reason: SORE THROAT Last Admin: 12/05/18 21:39 Dose: 1 each Clopidogrel Bisulfate (Plavix -) 75 mg PO DAILY [facility] Last Admin: 12/09/18 09:52 Dose: 75 mg Docusate Sodium (Colace -) 100 mg PO DAILY [facility] Last Admin: 12/09/18 09:52 Dose: 100 mg Duloxetine HCl (Cymbalta -) 30 mg PO DAILY [facility] Ferrous Sulfate (Feosol -) 325 mg PO BID [facility] Last Admin: 12/09/18 09:52 Dose: 325 mg Finasteride (Proscar -) 5 mg PO DAILY [facility] Last Admin: 12/09/18 09:53 Dose: 5 mg Furosemide (Lasix -) 40 mg PO BID@0600,1400 [facility] Last Admin: 12/09/18 14:43 Dose: 40 mg Gabapentin (Neurontin -) 400 mg PO TID [facility] Last Admin: 12/09/18 14:43 Dose: 400 mg Guaifenesin (Robitussin -) 10 ml PO Q6H PRN PRN Reason: COUGH Last Admin: 12/08/18 14:13 Dose: 10 ml Amiodarone HCl/Dextrose (Nexterone 360 Mg/200 Ml Bag) 360 mg in 200 mls @ 16.667 mls/hr IVPB ASDIR [facility]; Protocol Stop: 12/09/18 21:00 Last Admin: 12/08/18 20:45 Dose: 16.667 mls/hr Levothyroxine Sodium (Synthroid -) 25 mcg PO DAILY@0700 [facility] Last Admin: 12/09/18 06:35 Dose: 25 mcg Losartan Potassium (Cozaar -) 50 mg PO DAILY [facility] Last Admin: 12/09/18 09:52 Dose: 50 mg Metoprolol Tartrate (Lopressor -) 100 mg PO BID [facility] Last Admin: 12/09/18 09:52 Dose: 100 mg Metoprolol Tartrate (Lopressor Injection -) 5 mg IVPUSH Q4H PRN PRN Reason: TACHYCARDIA Last Admin: 12/06/18 07:48 Dose: 5 mg Pantoprazole Sodium (Protonix -) 40 mg PO DAILY [facility] Last Admin: 12/09/18 09:56 Dose: 40 mg Rivaroxaban (Xarelto) 20 mg PO DAILY [facility] Last Admin: 12/09/18 09:52 Dose: 20 mg Zolpidem Tartrate (Ambien -) 10 mg PO HS PRN PRN Reason: INSOMNIA - Objective Vital Signs: Vital Signs Temperature 97.8 F 12/09/18 13:00 Pulse Rate 114 H 12/09/18 13:00 Respiratory Rate 18 10/11/19 13:00 Blood Pressure 127/87 12/09/18 13:00 O2 Sat by Pulse Oximetry (%) 99 12/09/18 09:00 Labs: CBC, BMP 12/09/18 06:52 12/09/18 06:52 INR, PTT INR 2.44 (0.83-1.09) H 12/05/18 11:45 Problem List - Problems (1) HTN (hypertension) Assessment/Plan: On metoprolol, losartan, amiodarone, furosemide (plan to discontinue the latter : no acute CHF; if required for BP, consider a thiazide diuretic). ECHO: normal LVEF; mild LVH; mild LAE; moderately severe pulmonary HTN. Code(s): I10 - ESSENTIAL (PRIMARY) HYPERTENSION (2) Hx of CABG Assessment/Plan: ?[place] in September,-->the most recent of many reported coronary stents. F/u prior caridac workuip. Cardiac rehabilitation as outpatient. Code(s): Z95.1 - PRESENCE OF AORTOCORONARY BYPASS GRAFT (3) Hyperlipidemia Assessment/Plan: on atorvastatin; aggressive control of lipids in light of recent SC. Code(s): E78.5 - HYPERLIPIDEMIA, UNSPECIFIED (4) PAD (peripheral artery disease) Code(s): I73.9 - PERIPHERAL VASCULAR DISEASE, UNSPECIFIED (5) Acute on chronic diastolic CHF (congestive heart failure) Code(s): I50.33 - ACUTE ON CHRONIC DIASTOLIC (CONGESTIVE) HEART FAILURE (6) Old myocardial infarct Code(s): I25.2 - OLD MYOCARDIAL INFARCTION (7) Atrial fibrillation Assessment/Plan: Now on amiodarone (IV; PO started today); on metoprolol. ECHO: normal LVEF: mild LAE. Pt remains in AF with RVR, with resting HR approximately 115-120 bpm, Given his hx of recent [place] and mulitple coronary stents, VR control becomes even more important. Discussed pt with Dr. Janie Enriquez. If pt is able to ambulate without significant increase in overall heart rate, he may be discharged home on present medications and followed closely by PMD/ cardio/EP, with plans for EP evaluation and possible repeat ablation therapy. Send home on amiodarone dose of 200 mg bid for 1 to 2 weeks, then reduce dose until maintenance is reached (50-200 mg). Plans were discussed with Mr. Fabian. Code(s): I48.91 - UNSPECIFIED ATRIAL FIBRILLATION
[2018-12-09] MEDS: ATORVASTATIN CA 80 MG TABLET (FP) PO SCH (21:54)
[2018-12-09] MEDS: AMIODARONE IN DEXTROSE,ISO-OSM 360 MG/200 ML BAG IVPB SCH (21:57)
[2018-12-09] MEDS: ZOLPIDEM TARTRATE 5 MG TABLET PO PRN (21:57)
[2018-12-10] MEDS ORDERED: ACETAMINOPHEN 325 MG TABLET (FP) ONE (05:39)
[2018-12-10] MEDS: LEVOTHYROXINE NA 25 MCG TABLET (FP) PO SCH (06:38)
[2018-12-10] MEDS: GABAPENTIN 400 MG CAPSULE (FP) PO SCH ×3 (06:38→22:41)
[2018-12-10] MEDS: FUROSEMIDE 40 MG TABLET (FP) PO SCH (06:38)
[2018-12-10] MEDS: AMIODARONE HCL 200 MG TABLET (FP) PO SCH ×2 (09:10→22:40)
[2018-12-10] MEDS: PANTOPRAZOLE 40 MG TABLET (FP) PO SCH (09:10)
[2018-12-10] MEDS: CLOPIDOGREL BISULFATE 75 MG TABLET (FP) PO SCH (09:10)
[2018-12-10] MEDS: ASPIRIN 81 MG CHEWABLE TABLETS PO SCH (09:11)
[2018-12-10] MEDS: DULoxetine HCL 30 MG CAPSULE.DR PO SCH (09:11)
[2018-12-10] MEDS: METOPROLOL TARTRATE 50 MG TABLET (FP) PO SCH ×2 (09:11→22:40)
[2018-12-10] MEDS: DOCUSATE SODIUM 100 MG CAPSULE (FP) PO SCH (09:11)
[2018-12-10] MEDS: RIVAROXABAN 20 MG TABLET PO SCH (09:11)
[2018-12-10] MEDS: FINASTERIDE 5 MG TABLET (FP) PO SCH (09:11)
[2018-12-10] MEDS: LOSARTAN POTASSIUM 50 MG TABLET (FP) PO SCH (09:11)
[2018-12-10] MEDS: FERROUS SO4 325 MG TABLET (FP) PO SCH ×2 (09:11→22:41)
[2018-12-10 11:46] LABS: BLOOD UREA NITROGEN 23.6 mg/dL (7-18); CALCIUM 9.4 mg/dL (8.5-10.1); CREATININE 1.4 mg/dL (0.55-1.3); MAGNESIUM 1.9 mg/dL (1.8-2.4); POTASSIUM 3.3 mmol/L (3.5-5.1)
[2018-12-10] MEDS: ACETAMINOPHEN 325 MG TABLET (FP) PO PRN (12:10)
--- NOTE | 2018-12-10 12:55 | PN ---
Progress Note, Physician Chief Complaint: Cardiology for Dr. Romero History of Present Illness: Dyspnea, palpitations improving, denies chest pain, afib with RVR 110-120s. - Current Medication List Current Medications: Active Medications Acetaminophen (Tylenol -) 650 mg PO Q6H PRN PRN Reason: PAIN OR FEVER Last Admin: 12/10/18 12:10 Dose: 650 mg Amiodarone HCl (Cordarone -) 200 mg PO BID [facility] Last Admin: 12/10/18 09:10 Dose: 200 mg Aspirin (Asa -) 81 mg PO DAILY [facility] Last Admin: 12/10/18 09:11 Dose: 81 mg Atorvastatin Calcium (Lipitor -) 80 mg PO HS [facility] Last Admin: 12/09/18 21:54 Dose: 80 mg Benzocaine/Menthol (Cepacol Lozenge -) 1 each MM PRN PRN PRN Reason: SORE THROAT Last Admin: 12/05/18 21:39 Dose: 1 each Clopidogrel Bisulfate (Plavix -) 75 mg PO DAILY [facility] Last Admin: 12/10/18 09:10 Dose: 75 mg Docusate Sodium (Colace -) 100 mg PO DAILY [facility] Last Admin: 12/10/18 09:11 Dose: 100 mg Duloxetine HCl (Cymbalta -) 30 mg PO DAILY [facility] Last Admin: 12/10/18 09:11 Dose: 30 mg Ferrous Sulfate (Feosol -) 325 mg PO BID [facility] Last Admin: 12/10/18 09:11 Dose: 325 mg Finasteride (Proscar -) 5 mg PO DAILY [facility] Last Admin: 12/10/18 09:11 Dose: 5 mg Gabapentin (Neurontin -) 400 mg PO TID [facility] Last Admin: 12/10/18 06:38 Dose: 400 mg Guaifenesin (Robitussin -) 10 ml PO Q6H PRN PRN Reason: COUGH Last Admin: 12/08/18 14:13 Dose: 10 ml Levothyroxine Sodium (Synthroid -) 25 mcg PO DAILY@0700 [facility] Last Admin: 12/10/18 06:38 Dose: 25 mcg Losartan Potassium (Cozaar -) 50 mg PO DAILY [facility] Last Admin: 12/10/18 09:11 Dose: 50 mg Metoprolol Tartrate (Lopressor -) 100 mg PO BID [facility] Last Admin: 12/10/18 09:11 Dose: 100 mg Metoprolol Tartrate (Lopressor Injection -) 5 mg IVPUSH Q4H PRN PRN Reason: TACHYCARDIA Last Admin: 12/06/18 07:48 Dose: 5 mg Pantoprazole Sodium (Protonix -) 40 mg PO DAILY [facility] Last Admin: 12/10/18 09:10 Dose: 40 mg Rivaroxaban (Xarelto) 20 mg PO DAILY [facility] Last Admin: 12/10/18 09:11 Dose: 20 mg Zolpidem Tartrate (Ambien -) 10 mg PO HS PRN PRN Reason: INSOMNIA Last Admin: 12/09/18 21:57 Dose: 10 mg - Objective Vital Signs: Vital Signs Temperature 97.6 F 12/10/18 10:00 Pulse Rate 109 H 12/10/18 10:00 Respiratory Rate 18 12/10/18 10:00 Blood Pressure 126/81 12/10/18 10:00 O2 Sat by Pulse Oximetry (%) 99 12/10/18 09:00 Constitutional: Yes: No Distress, Calm Neck: Yes: Supple Cardiovascular: Yes: Tachycardia, Pulse Irregular Respiratory: Yes: Regular, CTA Bilaterally Gastrointestinal: Yes: Normal Bowel Sounds, Soft Edema: No Labs: CBC, BMP 12/09/18 06:52 12/10/18 11:10 INR, PTT INR 2.44 (0.83-1.09) H 12/05/18 11:45 - ....Imaging EKG: Report Reviewed (Tele: Afib @ 110s) Problem List - Problems (1) Hypothyroid Code(s): E03.9 - HYPOTHYROIDISM, UNSPECIFIED Qualifiers: Hypothyroidism type: unspecified Qualified Code(s): E03.9 - Hypothyroidism , unspecified Assessment/Plan - Problems (1) HTN (hypertension) Assessment/Plan: On metoprolol 100 bid, losartan 50 qd, amiodarone 200 bid, furosemide d/kylah given no acute CHF; added Cardizem CD 120 qd ECHO: normal LVEF; mild LVH; mild LAE; moderately severe pulmonary HTN. Code(s): I10 - ESSENTIAL (PRIMARY) HYPERTENSION (2) Hx of CABG Assessment/Plan: ?VT in September,-->the most recent of many reported coronary stents. F/u prior cardiac workuip, Plavix 75 qd, d/c ASA 81 qd while on Xarelto. Cardiac rehabilitation as outpatient. Code(s): Z95.1 - PRESENCE OF AORTOCORONARY BYPASS GRAFT (3) Hyperlipidemia Assessment/Plan: on atorvastatin 80 qd; aggressive control of lipids in light of recent VT. Code(s): E78.5 - HYPERLIPIDEMIA, UNSPECIFIED (4) PAD (peripheral artery disease) Code(s): I73.9 - PERIPHERAL VASCULAR DISEASE, UNSPECIFIED (5) Acute on chronic diastolic CHF (congestive heart failure) Code(s): I50.33 - ACUTE ON CHRONIC DIASTOLIC (CONGESTIVE) HEART FAILURE (6) Old myocardial infarct Code(s): I25.2 - OLD MYOCARDIAL INFARCTION (7) Atrial fibrillation Assessment/Plan: Now on amiodarone 200 bid; on metoprolol 100 bid, add cardizem CD 120 qd with IV Lopressor as needed for additional rate-control, Xarelto 20 qd ECHO: normal LVEF: mild LAE. Pt remains in AF with RVR, with resting HR approximately 115-120 bpm, Given his hx of recent VT and mulitple coronary stents, VR control becomes even more important. Discussed pt with Dr. Janie Enriquez. If pt is able to ambulate without significant increase in overall heart rate, he may be discharged home on present medications and followed closely by PMD/ cardio/EP, with plans for EP evaluation and possible repeat ablation therapy. Send home on amiodarone dose of 200 mg bid for 1 to 2 weeks, then reduce dose until maintenance is reached (50-200 mg). Consider DAVID-guided DCCV on amio if rate-control remains suboptimal Code(s): I48.91 - UNSPECIFIED ATRIAL FIBRILLATION
--- NOTE | 2018-12-10 13:52 | PN ---
Physical Exam: SUBJECTIVE: Patient seen and examined; HR noted to be persistently increased > 100 with max 120s-130s. Reviewed cardiology clearance with prior diagnostics and telemetry. NO brigid CP. Continues on the medications as per cardiology with amio 200 BID, dilt 120, MT 100 BID, and xarelto. Per Dr. Hanson's note considering cardioversion if uncontrolled. Was initially planning to check for chroniotropic response but given elevated HR will instead check tomorrow as do not want to worsen this. If his HR remains improved without abberancy with ambulation we will plan to DC patient home, but we will obviously continue monitoring for now. 10 sys ROS done and negative aside from HPI. OBJECTIVE: Vital Signs Period Temp Pulse Resp BP Sys/Plummer Pulse Ox Last 24 Hr 97.5 F-98.4 F 108-123 18-20 126-160/80-114 99-99 GENERAL: The patient is awake, alert, and fully oriented, in no acute distress. HEAD: Normal with no signs of trauma. EYES: PERRL, extraocular movements intact, sclera anicteric. ENT: Ears normal, nares patent, oropharynx clear without exudates NECK: Trachea midline, full range of motion, supple. LUNGS: Breath sounds equal, clear to auscultation bilaterally, no wheezes, no crackles HEART: Regular rate and rhythm, S1, S2 without murmur, rub or gallop. ABDOMEN: Soft, nontender, nondistended, normoactive bowels EXTREMITIES: 2+ pulses, warm, well-perfused, no edema. NEUROLOGICAL: Cranial nerves II through XII grossly intact. Normal speech PSYCH: Normal mood, normal affect. SKIN: Warm, dry, normal turgor, no rashes or lesions noted Laboratory Results - last 24 hr 12/04/18 12/04/18 12/04/18 06:00 06:00 06:00 WBC 7.2 RBC 4.57 Hgb 13.8 Hct 41.4 D MCV 90.8 MCH 30.3 MCHC 33.4 RDW 15.8 D Plt Count 143 D MPV 9.0 Absolute Neuts (auto) 5.3 Neutrophils % 73.0 Lymphocytes % 14.6 D Monocytes % 10.0 Eosinophils % 1.9 Basophils % 0.5 Nucleated RBC % 0 PT with INR INR PTT (Actin FS) Sodium 142 Potassium 3.4 L Chloride 104 Carbon Dioxide 31 Anion Gap 7 L BUN 21.7 H Creatinine 1.2 Est GFR (CKD-EPI)AfAm 73.62 Est GFR (CKD-EPI)NonAf 63.52 Random Glucose 97 Hemoglobin A1c % Calcium 9.0 Magnesium Total Bilirubin 0.3 AST 13 L ALT 16 Alkaline Phosphatase 111 Creatine Kinase 47 Troponin I 0.02 B-Natriuretic Peptide 3745.6 H Total Protein 7.0 Albumin 3.4 TSH 2.93 D Free T4 1.17 H Opiates Screen Methadone Screen Barbiturate Screen Phencyclidine Screen Ur Amphetamines Screen MDMA (Ecstasy) Screen Benzodiazepines Screen Cocaine Screen U Marijuana (THC) Screen 12/04/18 12/04/18 12/04/18 06:32 07:44 14:00 WBC RBC Hgb Hct MCV MCH MCHC RDW Plt Count MPV Absolute Neuts (auto) Neutrophils % Lymphocytes % Monocytes % Eosinophils % Basophils % Nucleated RBC % PT with INR 12.50 INR 1.06 PTT (Actin FS) 30.9 Sodium Potassium Chloride Carbon Dioxide Anion Gap BUN Creatinine Est GFR (CKD-EPI)AfAm Est GFR (CKD-EPI)NonAf Random Glucose Hemoglobin A1c % Calcium Magnesium Total Bilirubin AST ALT Alkaline Phosphatase Creatine Kinase 48 Troponin I 0.02 B-Natriuretic Peptide Total Protein Albumin TSH Free T4 Opiates Screen Negative Methadone Screen Negative Barbiturate Screen Negative Phencyclidine Screen Negative Ur Amphetamines Screen Negative MDMA (Ecstasy) Screen Negative Benzodiazepines Screen Negative Cocaine Screen Negative U Marijuana (THC) Screen Negative 12/04/18 12/05/18 12/10/18 21:07 11:45 11:10 WBC RBC Hgb Hct MCV MCH MCHC RDW Plt Count MPV Absolute Neuts (auto) Neutrophils % Lymphocytes % Monocytes % Eosinophils % Basophils % Nucleated RBC % PT with INR INR PTT (Actin FS) Sodium 139 Potassium 3.3 L Chloride 97 L Carbon Dioxide 36 H Anion Gap 6 L BUN 23.6 H Creatinine 1.4 H Est GFR (CKD-EPI)AfAm 61.10 Est GFR (CKD-EPI)NonAf 52.72 Random Glucose 143 H Hemoglobin A1c % 6.0 Calcium 9.4 Magnesium 1.9 Total Bilirubin AST ALT Alkaline Phosphatase Creatine Kinase Troponin I 0.02 B-Natriuretic Peptide Total Protein Albumin TSH Free T4 Opiates Screen Methadone Screen Barbiturate Screen Phencyclidine Screen Ur Amphetamines Screen MDMA (Ecstasy) Screen Benzodiazepines Screen Cocaine Screen U Marijuana (THC) Screen Active Medications Generic Name Dose Route Start Last Admin Trade Name Freq PRN Reason Stop Dose Admin Acetaminophen 650 mg 12/05/18 00:10 12/10/18 12:10 Tylenol - PO 650 mg Q6H PRN Administration PAIN OR FEVER Amiodarone HCl 200 mg 12/09/18 16:30 12/10/18 09:10 Cordarone - PO 200 mg BID [facility] Administration Atorvastatin Calcium 80 mg 12/04/18 22:00 12/09/18 21:54 Lipitor - PO 80 mg HS [facility] Administration Benzocaine/Menthol 1 each 12/04/18 08:16 12/05/18 21:39 Cepacol Lozenge - MM 1 each PRN PRN Administration SORE THROAT Clopidogrel Bisulfate 75 mg 12/05/18 10:00 12/10/18 09:10 Plavix - PO 75 mg DAILY [facility] Administration Diltiazem HCl 120 mg 12/10/18 13:15 12/10/18 13:23 Cardizem Cd - PO 120 mg DAILY [facility] Administration Docusate Sodium 100 mg 12/05/18 10:00 12/10/18 09:11 Colace - PO 100 mg DAILY [facility] Administration Duloxetine HCl 30 mg 12/10/18 10:00 12/10/18 09:11 Cymbalta - PO 30 mg DAILY [facility] Administration Ferrous Sulfate 325 mg 12/04/18 22:00 12/10/18 09:11 Feosol - PO 325 mg BID [facility] Administration Finasteride 5 mg 12/05/18 10:00 12/10/18 09:11 Proscar - PO 5 mg DAILY [facility] Administration Gabapentin 400 mg 12/05/18 06:00 12/10/18 13:23 Neurontin - PO 400 mg TID [facility] Administration Guaifenesin 10 ml 12/05/18 08:55 12/08/18 14:13 Robitussin - PO 10 ml Q6H PRN Administration COUGH Levothyroxine Sodium 25 mcg 12/06/18 07:00 12/10/18 06:38 Synthroid - PO 25 mcg DAILY@0700 [facility] Administration Losartan Potassium 50 mg 12/05/18 10:00 12/10/18 09:11 Cozaar - PO 50 mg DAILY [facility] Administration Metoprolol Tartrate 100 mg 12/04/18 22:00 12/10/18 09:11 Lopressor - PO 100 mg BID [facility] Administration Metoprolol Tartrate 5 mg 12/04/18 17:34 12/06/18 07:48 Lopressor Injection - IVPUSH 5 mg Q4H PRN Administration TACHYCARDIA Pantoprazole Sodium 40 mg 12/05/18 10:00 12/10/18 09:10 Protonix - PO 40 mg DAILY [facility] Administration Rivaroxaban 20 mg 12/05/18 10:00 12/10/18 09:11 Xarelto PO 20 mg DAILY [facility] Administration Zolpidem Tartrate 10 mg 12/09/18 22:00 12/09/18 21:57 Ambien - PO 10 mg HS PRN Administration INSOMNIA Echo, telemetry, and EKG reviewed ASSESSMENT/PLAN: Patient remains on the medicine service with cardiology consult with difficult to control afib with RVR on xarelto, amio, dilt, metoprolol. He is still >100 to 120-130 and has completed drip. We will continue to observe him on the floor and followup with CV recs to see if there is indicated DCCV. Problems include -Afib with RVR: still rvr on amio, metoprolol cardizem cd, and prn IV lopressor per CV. BP stable. Asx. may require DCCV. This was discussed with outside CV per note. appreciate cv guidance and defer managemetn to them. -CAD s/p CABG, [place] (? 09/2018) -HTN hx -HLD hx -D-CHF, euvolemic today Full Code Continue to monitor on tele May require procedure. Visit type - Emergency Visit Emergency Visit: No - New Patient This patient is new to me today: No - Critical Care Critical Care patient: No
[2018-12-10] MEDS ORDERED: POTASSIUM CHLORIDE TABS 20 MEQ TABLET.ER (FP) PO ONE (18:05)
[2018-12-10] MEDS ORDERED: KCL 10 MEQ IVPB 10 MEQ/100 ML INFUS.BAG IVPB SCH (18:15)
[2018-12-10] MEDS ORDERED: MAGNESIUM SULF 50% (8.12 MEQ/2 ML-1 GM VIAL) IVPB ONE (18:15)
[2018-12-10] MEDS: ATORVASTATIN CA 80 MG TABLET (FP) PO SCH (22:40)
[2018-12-10] MEDS: guaiFENesin 200 MG/10 ML 10 ML UNIT-DOSE CUPS PO PRN (22:41)
[2018-12-10] MEDS: ZOLPIDEM TARTRATE 5 MG TABLET PO PRN (22:45)
[2018-12-11] MEDS: GABAPENTIN 400 MG CAPSULE (FP) PO SCH ×3 (06:50→21:25)
[2018-12-11] MEDS: LEVOTHYROXINE NA 25 MCG TABLET (FP) PO SCH (06:50)
[2018-12-11 09:13] LABS: BLOOD UREA NITROGEN 22.7 mg/dL (7-18); CALCIUM 9.2 mg/dL (8.5-10.1); CREATININE 1.3 mg/dL (0.55-1.3); MAGNESIUM 2.2 mg/dL (1.8-2.4); POTASSIUM 3.9 mmol/L (3.5-5.1)
[2018-12-11] MEDS ORDERED: PT OWN MED DRAWER 7, Y5N ONE (09:17)
[2018-12-11] MEDS: LOSARTAN POTASSIUM 50 MG TABLET (FP) PO SCH (09:36)
[2018-12-11] MEDS: FERROUS SO4 325 MG TABLET (FP) PO SCH ×2 (09:36→21:26)
[2018-12-11] MEDS: AMIODARONE HCL 200 MG TABLET (FP) PO SCH ×2 (09:36→21:26)
[2018-12-11] MEDS: FINASTERIDE 5 MG TABLET (FP) PO SCH (09:36)
[2018-12-11] MEDS: METOPROLOL TARTRATE 50 MG TABLET (FP) PO SCH ×4 (09:36→23:34)
[2018-12-11] MEDS: DOCUSATE SODIUM 100 MG CAPSULE (FP) PO SCH (09:36)
[2018-12-11] MEDS: PANTOPRAZOLE 40 MG TABLET (FP) PO SCH (09:36)
[2018-12-11] MEDS: RIVAROXABAN 20 MG TABLET PO SCH (09:37)
[2018-12-11] MEDS: ACETAMINOPHEN 325 MG TABLET (FP) PO PRN ×2 (09:37→21:24)
[2018-12-11] MEDS: CLOPIDOGREL BISULFATE 75 MG TABLET (FP) PO SCH (09:37)
[2018-12-11] MEDS: DULoxetine HCL 30 MG CAPSULE.DR PO SCH (09:37)
--- NOTE | 2018-12-11 10:16 | PN ---
Progress Note (short form) - Note Progress Note: Cardiology coverage for Dr. Shawn Romero Chief Complaint: Events noted, notes reviewed, denies any chest pain or dyspnea , atrial fibrillation/atrial flutter persistent with periods of rapid ventricular response History of Present Illness: Seen and examined on telemetry. Events noted, notes reviewed, denies any chest pain or dyspnea, atrial fibrillation/atrial flutter persistent with periods of rapid ventricular response - Current Medication List Current Medications: Active Medications Current Medications Acetaminophen (Tylenol -) 650 mg PO Q6H PRN PRN Reason: PAIN OR FEVER Last Admin: 12/11/18 09:37 Dose: 650 mg Amiodarone HCl (Cordarone -) 200 mg PO BID [facility] Last Admin: 12/11/18 09:36 Dose: 200 mg Atorvastatin Calcium (Lipitor -) 80 mg PO HS [facility] Last Admin: 12/10/18 22:40 Dose: 80 mg Benzocaine/Menthol (Cepacol Lozenge -) 1 each MM PRN PRN PRN Reason: SORE THROAT Last Admin: 12/05/18 21:39 Dose: 1 each Clopidogrel Bisulfate (Plavix -) 75 mg PO DAILY [facility] Last Admin: 12/11/18 09:37 Dose: 75 mg Diltiazem HCl (Cardizem Cd -) 120 mg PO DAILY [facility] Last Admin: 12/11/18 09:36 Dose: 120 mg Docusate Sodium (Colace -) 100 mg PO DAILY [facility] Last Admin: 12/11/18 09:36 Dose: 100 mg Duloxetine HCl (Cymbalta -) 30 mg PO DAILY [facility] Last Admin: 12/11/18 09:37 Dose: 30 mg Ferrous Sulfate (Feosol -) 325 mg PO BID [facility] Last Admin: 12/11/18 09:36 Dose: 325 mg Finasteride (Proscar -) 5 mg PO DAILY [facility] Last Admin: 12/11/18 09:36 Dose: 5 mg Gabapentin (Neurontin -) 400 mg PO TID [facility] Last Admin: 12/11/18 06:50 Dose: 400 mg Guaifenesin (Robitussin -) 10 ml PO Q6H PRN PRN Reason: COUGH Last Admin: 12/10/18 22:41 Dose: 10 ml Levothyroxine Sodium (Synthroid -) 25 mcg PO DAILY@0700 [facility] Last Admin: 12/11/18 06:50 Dose: 25 mcg Losartan Potassium (Cozaar -) 50 mg PO DAILY [facility] Last Admin: 12/11/18 09:36 Dose: 50 mg Metoprolol Tartrate (Lopressor -) 100 mg PO BID [facility] Last Admin: 12/11/18 09:36 Dose: 100 mg Metoprolol Tartrate (Lopressor Injection -) 5 mg IVPUSH Q4H PRN PRN Reason: TACHYCARDIA Last Admin: 12/06/18 07:48 Dose: 5 mg Pantoprazole Sodium (Protonix -) 40 mg PO DAILY [facility] Last Admin: 12/11/18 09:36 Dose: 40 mg Rivaroxaban (Xarelto) 20 mg PO DAILY [facility] Last Admin: 12/11/18 09:37 Dose: 20 mg Zolpidem Tartrate (Ambien -) 10 mg PO HS PRN PRN Reason: INSOMNIA Last Admin: 12/10/18 22:45 Dose: 10 mg - Review of Systems Constitutional: denies: Chills, Fever Cardiovascular: As noted above Respiratory: denies: Cough or Hemoptysis Gastrointestinal: denies: Abdominal Pain, Constipation, Diarrhea, Melena, Nausea , Rectal Bleeding, Vomiting Musculoskeletal: denies: Back Pain Neurological: denies: Unsteady Gait, Weakness. denies: Dizziness, Headache, Seizure, Syncope - Objective Vital Signs: Last Vital Signs Temp Pulse Resp BP Pulse Ox 97.9 F 103 H 20 137/88 99 12/11/18 10:00 12/11/18 10:00 12/11/18 10:00 12/11/18 10:00 12/11/18 09:00 Intake & Output 12/08/18 12/09/18 12/10/18 12/11/18 23:59 23:59 23:59 23:59 Intake Total 1350 1400 1230 Output Total 1000 1300 1600 Balance 350 100 -370 Weight 223 lb 6 oz 226 lb HEENT: Atraumatic Neck: Supple Negative JVD Cardiovascular: S1 S2 Irregularly Irregualr Respiratory: diminished Breath Sounds at the Bases Gastrointestinal: Soft Benign Normal Bowel Sounds Ext: Negative Edema Labs: CBC, BMP 12/09/18 06:52 12/11/18 07:30 Hepatic Panel Total Bilirubin 0.4 mg/dL (0.2-1) 12/09/18 06:52 AST 10 U/L (15-37) L 12/09/18 06:52 ALT 15 U/L (13-61) 12/09/18 06:52 Alkaline Phosphatase 103 U/L (45-117) 12/09/18 06:52 Albumin 3.3 g/dl (3.4-5.0) L 12/09/18 06:52 INR, PTT INR 2.44 (0.83-1.09) H 12/05/18 11:45 Assessment/Plan 1. Persistent/paroxysmal atrial fibrillation/atrial flutter with periods of rapid ventricular response [id number] score of 3 on A/C- Xarelto 2. CAD post MA/CABG/PCI- stent angina pectoris 3. Diastolic LV dysfunction with clinical class 0-I NYHA classification LV failure, compensated/euvolemic 4. HTN 5. Hypercholesterolemia 6. PAD 7. Hypothyroidism 8. CKD PLAN: 1. Continue Lopressor 2. Continue Cardizem 3. Continue Amiodarone 4. Continue Cozaar 5. Continue Plavix with caution and close monitoring of Hg 6. Continue Xarelto with caution and close monitoring of Hg 7. Considering the above noted persistence of atrial fibrillation/atrial flutter with rapid rates recommend proceeding with DAVID guided synchronized cardioversion- to be discussed further with the primary cardiology team, discussed with the patient Angela Machuca MD
[2018-12-11 15:15] VITALS: BMI 32.4
[2018-12-11] MEDS: ATORVASTATIN CA 80 MG TABLET (FP) PO SCH (21:25)
[2018-12-11] MEDS: ZOLPIDEM TARTRATE 5 MG TABLET PO PRN (23:35)
[2018-12-12] MEDS: METOPROLOL TARTRATE 50 MG TABLET (FP) PO SCH ×4 (05:34→23:21)
[2018-12-12] MEDS: GABAPENTIN 400 MG CAPSULE (FP) PO SCH ×3 (05:34→21:25)
[2018-12-12] MEDS: LEVOTHYROXINE NA 25 MCG TABLET (FP) PO SCH (06:03)
--- NOTE | 2018-12-12 07:34 | PN ---
Progress Note, Physician Chief Complaint: waiting for HR to stablize so he can go home History of Present Illness: Patient is a 63 year old male with a past medical history of OR (September 2018, s/ p stenting at [facility]), CHF, hypertension, atrial fibrillaton (s/p ablation) aortic aneurysm and psiorosis. He presents to our ED presents with c/ o of cough, congestion and shortness of breath. Patient reports worsening shortness of breath for approximately 5 days. He is currently homeless and lives in a jail - Current Medication List Current Medications: Active Medications Acetaminophen (Tylenol -) 650 mg PO Q6H PRN PRN Reason: PAIN OR FEVER Last Admin: 12/11/18 21:24 Dose: 650 mg Amiodarone HCl (Cordarone -) 200 mg PO BID [facility] Last Admin: 12/11/18 21:26 Dose: 200 mg Atorvastatin Calcium (Lipitor -) 80 mg PO HS [facility] Last Admin: 12/11/18 21:25 Dose: 80 mg Benzocaine/Menthol (Cepacol Lozenge -) 1 each MM PRN PRN PRN Reason: SORE THROAT Last Admin: 12/05/18 21:39 Dose: 1 each Clopidogrel Bisulfate (Plavix -) 75 mg PO DAILY [facility] Last Admin: 12/11/18 09:37 Dose: 75 mg Diltiazem HCl (Cardizem Cd -) 120 mg PO DAILY [facility] Last Admin: 12/11/18 09:36 Dose: 120 mg Docusate Sodium (Colace -) 100 mg PO DAILY [facility] Last Admin: 12/11/18 09:36 Dose: 100 mg Duloxetine HCl (Cymbalta -) 30 mg PO DAILY [facility] Last Admin: 12/11/18 09:37 Dose: 30 mg Ferrous Sulfate (Feosol -) 325 mg PO BID [facility] Last Admin: 12/11/18 21:26 Dose: 325 mg Finasteride (Proscar -) 5 mg PO DAILY [facility] Last Admin: 12/11/18 09:36 Dose: 5 mg Gabapentin (Neurontin -) 400 mg PO TID [facility] Last Admin: 12/12/18 05:34 Dose: 400 mg Guaifenesin (Robitussin -) 10 ml PO Q6H PRN PRN Reason: COUGH Last Admin: 12/10/18 22:41 Dose: 10 ml Levothyroxine Sodium (Synthroid -) 25 mcg PO DAILY@0700 [facility] Last Admin: 12/12/18 06:03 Dose: 25 mcg Losartan Potassium (Cozaar -) 50 mg PO DAILY [facility] Last Admin: 12/11/18 09:36 Dose: 50 mg Metoprolol Tartrate (Lopressor Injection -) 5 mg IVPUSH Q4H PRN PRN Reason: TACHYCARDIA Last Admin: 12/06/18 07:48 Dose: 5 mg Metoprolol Tartrate (Lopressor -) 50 mg PO Q6HPO [facility] Last Admin: 12/12/18 05:34 Dose: 50 mg Pantoprazole Sodium (Protonix -) 40 mg PO DAILY [facility] Last Admin: 12/11/18 09:36 Dose: 40 mg Rivaroxaban (Xarelto) 20 mg PO DAILY [facility] Last Admin: 12/11/18 09:37 Dose: 20 mg Zolpidem Tartrate (Ambien -) 10 mg PO HS PRN PRN Reason: INSOMNIA Last Admin: 12/11/18 23:35 Dose: 10 mg - Objective Vital Signs: Vital Signs Temperature 97.4 F L 12/12/18 06:00 Pulse Rate 111 H 12/12/18 06:00 Respiratory Rate 20 12/12/18 06:00 Blood Pressure 138/95 12/12/18 06:00 O2 Sat by Pulse Oximetry (%) 100 12/11/18 22:00 Additional Findings/Remarks: Constitutional: Yes: Well Nourished, No Distress, Calm Eyes: Yes: WNL, Conjunctiva Clear HENT: Yes: WNL, Atraumatic, Normocephalic Neck: Yes: WNL, Supple, Trachea Midline Cardiovascular: Yes: Tachycardia, Pulse Irregular (AFlutter on monitor), Other ( HR in low 100-90s presently) Respiratory: Yes: Regular, CTA Bilaterally Gastrointestinal: Yes: WNL, Normal Bowel Sounds ...Rectal Exam: Yes: Deferred Genitourinary: Yes: WNL Breast(s): Yes: WNL Musculoskeletal: Yes: WNL Extremities: Yes: WNL Edema: No Peripheral Pulses WNL: Yes Peripheral Pulses: Left Radial: 2+, Right Radial: 2+, Left Doralis Pedis: 2+, Right Dorsalis Pedis: 2+, Left Femoral: 2+, Right Femoral: 2+ Integumentary: Yes: WNL Neurological: Yes: WNL, Alert, Oriented ...Motor Strength: WNL Psychiatric: Yes: WNL Labs: CBC, BMP 12/09/18 06:52 12/11/18 07:30 INR, PTT INR 2.44 (0.83-1.09) H 12/05/18 11:45 Problem List - Problems (1) Atrial flutter by electrocardiogram Assessment/Plan: c/w metoprolol/diltiazem for rate control amio load and maintenece IV given started on PO 200mg BID x 2 weeks, confirm outpatient dose with Dr Romero on discharge TTE : EF 55-60%, mild MR/TR. PAS [address] Enriquez from [facility] has been contacted for pt to follow up as outpatient Code(s): I48.92 - UNSPECIFIED ATRIAL FLUTTER (2) Prophylactic measure Assessment/Plan: FEN Fluids: adequate PO intake Electrolytes: monitor & replete as needed. Keep K>4.0, Mg >2.0 Nutrition: cardiac diet DVT c/w asa, plavix, xarelto Dispo Maintain om tele full code discharge planning Code(s): Z29.9 - ENCOUNTER FOR PROPHYLACTIC MEASURES, UNSPECIFIED (3) HTN (hypertension) Assessment/Plan: normotensive now c/w cozaar Code(s): I10 - ESSENTIAL (PRIMARY) HYPERTENSION (4) Hx of CABG Assessment/Plan: c/w asa,plavix Code(s): Z95.1 - PRESENCE OF AORTOCORONARY BYPASS GRAFT (5) Hyperlipidemia Assessment/Plan: c/w atorvastatin cardiac diet Code(s): E78.5 - HYPERLIPIDEMIA, UNSPECIFIED (6) CHF (congestive heart failure) Assessment/Plan: Cr 1.3 lasix dc'd if dieuetic therapy is needed will start thiazide continue to monitor cr strict I/Os, weight daily Code(s): I50.9 - HEART FAILURE, UNSPECIFIED (7) BPH (benign prostatic hyperplasia) Assessment/Plan: c/w flomax Code(s): N40.0 - BENIGN PROSTATIC HYPERPLASIA WITHOUT LOWER URINRY TRACT SYMP (8) Hypothyroid Assessment/Plan: TSH 4.29, T4 1.17 c/w synthroid 25mcg Code(s): E03.9 - HYPOTHYROIDISM, UNSPECIFIED Qualifiers: Hypothyroidism type: unspecified Qualified Code(s): E03.9 - Hypothyroidism , unspecified Visit type - Emergency Visit Emergency Visit: Yes ED Registration Date: 12/05/18 Care time: The patient presented to the Emergency Department on the above date and was hospitalized for further evaluation of their emergent condition. - New Patient This patient is new to me today: No - Critical Care Critical Care patient: No - Discharge Referral Referred to [facility] Med P.C[facility] No
--- NOTE | 2018-12-12 09:48 | PN ---
Progress Note, Physician History of Present Illness: Patient is a 63 year old male with a past medical history of [place] (September 2018, s/ p stenting at [facility]), CHF, hypertension, atrial fibrillaton (s/p ablation) aortic aneursym and psiorosis. He presents to our ED presents with c/ o of cough, congestion and shortness of breath. Patient reports worsening shortness of breath for approximately 5 days. He is currently homeless and lives in a care home and has had sick contacts. He denies chest pain and reports taking his medications including the metoprolol. He denies orthopnea, no lower extremity swelling. In the ED he was noted to have uncontrolled hypertension, tachycardia with aflutter and has been ruled out for PE with negative CTA. He will be monitored on tele. Patient recently admitted on 07/2018 for bilateral lower ext pain and and CTA was done. Patient was instructed to follow up with Dr. Cheek for an out patient ER course was notable for: (1) ekg; aflutter 122, with no specific t wave abnormality (2) uncontrolled hypertension (3) prolonged qtc (4) chest cta negative for PE PMH reportedly "one vessel diseasse"; CABG done about 5 yrs ago. Pt reports having had 8 stents prior to CABG, and "8 or 9 more" since then, the most recent reportedly a 4 months ago at [place] when he was having an NH). - Current Medication List Current Medications: Active Medications Acetaminophen (Tylenol -) 650 mg PO Q6H PRN PRN Reason: PAIN OR FEVER Last Admin: 12/11/18 21:24 Dose: 650 mg Amiodarone HCl (Cordarone -) 200 mg PO BID PENDING SALE TO [facility] Last Admin: 12/11/18 21:26 Dose: 200 mg Atorvastatin Calcium (Lipitor -) 80 mg PO HS PENDING SALE TO [facility] Last Admin: 12/11/18 21:25 Dose: 80 mg Benzocaine/Menthol (Cepacol Lozenge -) 1 each MM PRN PRN PRN Reason: SORE THROAT Last Admin: 12/05/18 21:39 Dose: 1 each Clopidogrel Bisulfate (Plavix -) 75 mg PO DAILY [facility]ING [facility] TO [facility] Last Admin: 12/11/18 09:37 Dose: 75 mg Diltiazem HCl (Cardizem Cd -) 120 mg PO DAILY PENDING [facility] TO [facility] Last Admin: 12/11/18 09:36 Dose: 120 mg Docusate Sodium (Colace -) 100 mg PO DAILY PENDING [facility] TO [facility] Last Admin: 12/11/18 09:36 Dose: 100 mg Duloxetine HCl (Cymbalta -) 30 mg PO DAILY PENDING [facility] Last Admin: 12/11/18 09:37 Dose: 30 mg Ferrous Sulfate (Feosol -) 325 mg PO BID PENDING [facility] TO [facility] Last Admin: 12/11/18 21:26 Dose: 325 mg Finasteride (Proscar -) 5 mg PO DAILY PENDING [facility] TO [facility] Last Admin: 12/11/18 09:36 Dose: 5 mg Gabapentin (Neurontin -) 400 mg PO TID [facility]END[facility] TO [facility] Last Admin: 12/12/18 05:34 Dose: 400 mg Guaifenesin (Robitussin -) 10 ml PO Q6H PRN PRN Reason: COUGH Last Admin: 12/10/18 22:41 Dose: 10 ml Levothyroxine Sodium (Synthroid -) 25 mcg PO DAILY@0700 PEND[facility] Last Admin: 12/12/18 06:03 Dose: 25 mcg Losartan Potassium (Cozaar -) 50 mg PO DAILY [facility] Last Admin: 12/11/18 09:36 Dose: 50 mg Metoprolol Tartrate (Lopressor Injection -) 5 mg IVPUSH Q4H PRN PRN Reason: TACHYCARDIA Last Admin: 12/06/18 07:48 Dose: 5 mg Metoprolol Tartrate (Lopressor -) 50 mg PO Q6HPO PENDING SALE TO [facility] Last Admin: 12/12/18 05:34 Dose: 50 mg Pantoprazole Sodium (Protonix -) 40 mg PO DAILY [facility] Last Admin: 12/11/18 09:36 Dose: 40 mg Rivaroxaban (Xarelto) 20 mg PO DAILY [facility]END[facility] Last Admin: 12/11/18 09:37 Dose: 20 mg Zolpidem Tartrate (Ambien -) 10 mg PO HS PRN PRN Reason: INSOMNIA Last Admin: 12/11/18 23:35 Dose: 10 mg - Objective Vital Signs: Vital Signs Temperature 97.4 F L 12/12/18 06:00 Pulse Rate 111 H 12/12/18 06:00 Respiratory Rate 20 12/12/18 06:00 Blood Pressure 138/95 12/12/18 06:00 O2 Sat by Pulse Oximetry (%) 100 12/11/18 22:00 Eyes: Yes: WNL, Conjunctiva Clear, EOM Intact HENT: Yes: WNL, Atraumatic, Normocephalic Neck: Yes: WNL, Supple, Trachea Midline Cardiovascular: Yes: Pulse Irregular Respiratory: Yes: WNL, Regular, CTA Bilaterally Gastrointestinal: Yes: WNL, Normal Bowel Sounds Genitourinary: Yes: WNL Musculoskeletal: Yes: WNL Extremities: Yes: WNL Edema: No Integumentary: Yes: WNL Neurological: Yes: WNL, Alert, Oriented ...Motor Strength: WNL Psychiatric: Yes: WNL Labs: CBC, BMP 12/09/18 06:52 12/11/18 07:30 INR, PTT INR 2.44 (0.83-1.09) H 12/05/18 11:45 Problem List - Problems (1) Atrial flutter by electrocardiogram Code(s): I48.92 - UNSPECIFIED ATRIAL FLUTTER (2) Prophylactic measure Code(s): Z29.9 - ENCOUNTER FOR PROPHYLACTIC MEASURES, UNSPECIFIED (3) Sinus tachycardia Code(s): R00.0 - TACHYCARDIA, UNSPECIFIED (4) Anemia Code(s): D64.9 - ANEMIA, UNSPECIFIED (5) Atrial fibrillation Code(s): I48.91 - UNSPECIFIED ATRIAL FIBRILLATION (6) BPH (benign prostatic hyperplasia) Code(s): N40.0 - BENIGN PROSTATIC HYPERPLASIA WITHOUT LOWER URINRY TRACT SYMP (7) HTN (hypertension) Code(s): I10 - ESSENTIAL (PRIMARY) HYPERTENSION (8) Hx of CABG Code(s): Z95.1 - PRESENCE OF AORTOCORONARY BYPASS GRAFT (9) Hyperlipidemia Code(s): E78.5 - HYPERLIPIDEMIA, UNSPECIFIED (10) PAD (peripheral artery disease) Code(s): I73.9 - PERIPHERAL VASCULAR DISEASE, UNSPECIFIED (11) SHANA (acute kidney injury) Code(s): N17.9 - ACUTE KIDNEY FAILURE, UNSPECIFIED (12) Acute on chronic diastolic CHF (congestive heart failure) Code(s): I50.33 - ACUTE ON CHRONIC DIASTOLIC (CONGESTIVE) HEART FAILURE (13) Elevated troponin Code(s): R74.8 - ABNORMAL LEVELS OF OTHER SERUM ENZYMES (14) Old myocardial infarct Code(s): I25.2 - OLD MYOCARDIAL INFARCTION Assessment/Plan - Problems (1) HTN (hypertension) Assessment/Plan: On metoprolol, losartan, amiodarone, furosemide (plan to discontinue the latter : no acute CHF; if required for BP, consider a thiazide diuretic). ECHO: normal LVEF; mild LVH; mild LAE; moderately severe pulmonary HTN. Code(s): I10 - ESSENTIAL (PRIMARY) HYPERTENSION (2) Hx of CABG Assessment/Plan: ?NH in September,-->the most recent of many reported coronary stents. F/u prior caridac workuip. Cardiac rehabilitation as outpatient. Code(s): Z95.1 - PRESENCE OF AORTOCORONARY BYPASS GRAFT (3) Hyperlipidemia Assessment/Plan: on atorvastatin; aggressive control of lipids in light of recent NH. Code(s): E78.5 - HYPERLIPIDEMIA, UNSPECIFIED (4) PAD (peripheral artery disease) Code(s): I73.9 - PERIPHERAL VASCULAR DISEASE, UNSPECIFIED (5) Acute on chronic diastolic CHF (congestive heart failure) Code(s): I50.33 - ACUTE ON CHRONIC DIASTOLIC (CONGESTIVE) HEART FAILURE (6) Old myocardial infarct Code(s): I25.2 - OLD MYOCARDIAL INFARCTION (7) Atrial fibrillation Assessment/Plan: Now on amiodarone (IV; PO started today); on metoprolol. ECHO: normal LVEF: mild LAE. Pt remains in AF with RVR, with resting HR approximately 115-120 bpm, Given his hx of recent NH and mulitple coronary stents, VR control becomes even more important. Discussed pt with Dr. Janie Enriquez. If pt is able to ambulate without significant increase in overall heart rate, he may be discharged home on present medications and followed closely by PMD/ cardio/EP, with plans for EP evaluation and possible repeat ablation therapy. Send home on amiodarone dose of 200 mg bid for 1 to 2 weeks, then reduce dose until maintenance is reached (50-200 mg).
[2018-12-12] MEDS: DOCUSATE SODIUM 100 MG CAPSULE (FP) PO SCH (10:39)
[2018-12-12] MEDS: AMIODARONE HCL 200 MG TABLET (FP) PO SCH ×2 (10:39→21:25)
[2018-12-12] MEDS: DULoxetine HCL 30 MG CAPSULE.DR PO SCH (10:39)
[2018-12-12] MEDS: FERROUS SO4 325 MG TABLET (FP) PO SCH ×2 (10:39→21:25)
[2018-12-12] MEDS: LOSARTAN POTASSIUM 50 MG TABLET (FP) PO SCH (10:39)
[2018-12-12] MEDS: CLOPIDOGREL BISULFATE 75 MG TABLET (FP) PO SCH (10:39)
[2018-12-12] MEDS: PANTOPRAZOLE 40 MG TABLET (FP) PO SCH (10:39)
[2018-12-12] MEDS: FINASTERIDE 5 MG TABLET (FP) PO SCH (10:39)
[2018-12-12] MEDS: RIVAROXABAN 20 MG TABLET PO SCH (10:40)
[2018-12-12] MEDS: ATORVASTATIN CA 80 MG TABLET (FP) PO SCH (21:25)
[2018-12-12] MEDS ORDERED: ZOLPIDEM TARTRATE 5 MG TABLET PO PRN (22:57)
[2018-12-13] MEDS: METOPROLOL TARTRATE 50 MG TABLET (FP) PO SCH (06:18)
[2018-12-13] MEDS: GABAPENTIN 400 MG CAPSULE (FP) PO SCH ×2 (06:18→14:07)
[2018-12-13] MEDS: LEVOTHYROXINE NA 25 MCG TABLET (FP) PO SCH (06:19)
[2018-12-13 06:45] LABS: BASO % 0.3 % (0-2.0); EOS % 1.8 % (0-4.5); HEMOGLOBIN 14.5 GM/dL (11.7-16.9); LYMPH % 13.6 % (8-40); MCHC 33.7 g/dl (32.0-35.9); MEAN PLT VOLUME 9.3 fl (7.5-11.1); MONO % 6.2 % (3.8-10.2); NEUT % 78.1 % (42.8-82.8); PLATELET COUNT 190 K/MM3 (134-434); RBC 4.83 M/mm3 (4.00-5.60); RDW 15.6 % (11.9-15.9); WHITE BLOOD COUNT 9.7 K/mm3 (4.0-10.0)
[2018-12-13 07:18] LABS: ALBUMIN 3.2 g/dl (3.4-5.0); BILIRUBIN,TOTAL 0.4 mg/dL (0.2-1); BLOOD UREA NITROGEN 18.5 mg/dL (7-18); CREATININE 1.1 mg/dL (0.55-1.3); MAGNESIUM 1.9 mg/dL (1.8-2.4); POTASSIUM 3.3 mmol/L (3.5-5.1); TOT PROT 6.8 g/dl (6.4-8.2)
--- NOTE | 2018-12-13 08:29 | PN ---
Progress Note, Physician Chief Complaint: Pt A&Ox3. Calm; no chest pain, palpitations, dizziness. On request, ambulated the hallway several times without symptms; HR at rest in the 90s bpm, and did not change with ambulation. History of Present Illness: The patient is a 63 y/o male with a PMH of [place] in September 2018-->stent at [facility]; hx of "17 stents over the past 5 or 6 years, 8 before the CABG about 5 yers ago"), diastolic CHF, HTN, AFib (s/p ablation x 2, the first in [place] several years ago; the latest at [facility] in ?2017) Aortic Aneursym, noncompliance to medications (e.g. pt says he oftens "forgets" to take aspirin) , presents to ED c/o 5 day h/o cough, congestion and shortness of breath. Cough is productive (yellowish sputum) and patient reports worsening NELSON over the past 5 days. No active CP, no orthopnea, no lower extremity swelling. States he is lliving in a alf where some of the residents have been brought to the hospital with similar symptoms. The patient denies: headache, changes from baseline blurry vision abdominal pain , vomiting, diarrhea/constipation,dysuria/hematuria, numbness/tingling. Surgical: CABG, Cardiac Stent x17, the latest a few months ago; s/p ablation x 2 for AF Allergy: Penicillin PMD: [facility] [place] Cardiology: [place] - Current Medication List Current Medications: Active Medications Acetaminophen (Tylenol -) 650 mg PO Q6H PRN PRN Reason: PAIN OR FEVER Last Admin: 12/11/18 21:24 Dose: 650 mg Amiodarone HCl (Cordarone -) 200 mg PO BID [facility] Stop: 12/22/18 22:01 Last Admin: 12/12/18 21:25 Dose: 200 mg Atorvastatin Calcium (Lipitor -) 80 mg PO HS [facility] Last Admin: 12/12/18 21:25 Dose: 80 mg Benzocaine/Menthol (Cepacol Lozenge -) 1 each MM PRN PRN PRN Reason: SORE THROAT Last Admin: 12/05/18 21:39 Dose: 1 each Clopidogrel Bisulfate (Plavix -) 75 mg PO DAILY [facility] Last Admin: 12/12/18 10:39 Dose: 75 mg Diltiazem HCl (Cardizem Cd -) 120 mg PO DAILY [facility] Last Admin: 12/12/18 10:39 Dose: 120 mg Docusate Sodium (Colace -) 100 mg PO DAILY [facility] Last Admin: 12/12/18 10:39 Dose: 100 mg Duloxetine HCl (Cymbalta -) 30 mg PO DAILY [facility] Last Admin: 12/12/18 10:39 Dose: 30 mg Ferrous Sulfate (Feosol -) 325 mg PO BID [facility] Last Admin: 12/12/18 21:25 Dose: 325 mg Finasteride (Proscar -) 5 mg PO DAILY [facility] Last Admin: 12/12/18 10:39 Dose: 5 mg Gabapentin (Neurontin -) 400 mg PO TID [facility] Last Admin: 12/13/18 06:18 Dose: 400 mg Guaifenesin (Robitussin -) 10 ml PO Q6H PRN PRN Reason: COUGH Last Admin: 12/10/18 22:41 Dose: 10 ml Levothyroxine Sodium (Synthroid -) 25 mcg PO DAILY@0700 [facility] Last Admin: 12/13/18 06:19 Dose: 25 mcg Losartan Potassium (Cozaar -) 50 mg PO DAILY [facility] Last Admin: 12/12/18 10:39 Dose: 50 mg Metoprolol Tartrate (Lopressor -) 50 mg PO Q6HPO [facility] Last Admin: 12/13/18 06:18 Dose: 50 mg Pantoprazole Sodium (Protonix -) 40 mg PO DAILY [facility] Last Admin: 12/12/18 10:39 Dose: 40 mg Rivaroxaban (Xarelto) 20 mg PO DAILY [facility] Last Admin: 12/12/18 10:40 Dose: 20 mg Zolpidem Tartrate (Ambien -) 10 mg PO HS PRN PRN Reason: INSOMNIA Last Admin: 12/12/18 23:21 Dose: 10 mg - Objective Vital Signs: Vital Signs Temperature 97.5 F L 12/13/18 05:49 Pulse Rate 106 H 12/13/18 05:49 Respiratory Rate 18 12/13/18 05:49 Blood Pressure 134/89 12/13/18 05:49 O2 Sat by Pulse Oximetry (%) 98 12/12/18 20:54 Constitutional: Yes: No Distress Eyes: Yes: WNL HENT: Yes: WNL Neck: Yes: WNL Respiratory: Yes: WNL Gastrointestinal: Yes: WNL, Abdomen, Obese Labs: CBC, BMP 12/13/18 05:10 12/13/18 05:10 INR, PTT INR 2.44 (0.83-1.09) H 12/05/18 11:45 Problem List - Problems (1) HTN (hypertension) Assessment/Plan: On metoprolol, losartan (increased to 100 mg daily due to continued mildly elevated BP; K 3.6), amiodarone. ECHO: normal LVEF; mild LVH; mild LAE; moderately severe pulmonary HTN. The importance of weight loss and exercise was discussed in detail. Code(s): I10 - ESSENTIAL (PRIMARY) HYPERTENSION (2) Hx of CABG Assessment/Plan: ?DE in September, that presented with syncope-->the most recent of many reported coronary stents. F/u prior caridac workuip ([place]; [place]. Cardiac rehabilitation as outpatient. Code(s): Z95.1 - PRESENCE OF AORTOCORONARY BYPASS GRAFT (3) Hyperlipidemia Assessment/Plan: on atorvastatin; aggressive control of lipids in light of recent DE. Pt says he was on atorvastatin 40 mg; will increase to 80 mg daily; f/u lipid panel in 4-8 weeks. Code(s): E78.5 - HYPERLIPIDEMIA, UNSPECIFIED (4) PAD (peripheral artery disease) Code(s): I73.9 - PERIPHERAL VASCULAR DISEASE, UNSPECIFIED (5) Atrial flutter Assessment/Plan: Pt is A&Ox3; on request, walked several times up and down the hallway for 5 minutes: resting rhythm of atrial flutter with VR at 91 bpm did not change with ambulation. Plan: Discharge home on amiodarone and metoprolol ER for HR control. Discontinue diltiazem (interaction with amiodarone may potentiate effecto of both agents); f/u HR and rhythm. Pt will gradually be decreased on PO amiodarone to 50-200 mg daily, [facility] plans for EP evaluation by Dr. Zach Enriquez,at [facility] for possible repeat ablation therapy. The above was discussed in detail with Leobardo Rui. Code(s): I48.92 - UNSPECIFIED ATRIAL FLUTTER (6) Obesity Assessment/Plan: Pt weighed 135-140 lbs in his 20s; now 225 lbs. The importance ochanging diet, decreasing weight, and increasing exercise was emphasized. Code(s): E66.9 - OBESITY, UNSPECIFIED
[2018-12-13] MEDS: CLOPIDOGREL BISULFATE 75 MG TABLET (FP) PO SCH (09:11)
[2018-12-13] MEDS: FERROUS SO4 325 MG TABLET (FP) PO SCH (09:11)
[2018-12-13] MEDS: FINASTERIDE 5 MG TABLET (FP) PO SCH (09:11)
[2018-12-13] MEDS: AMIODARONE HCL 200 MG TABLET (FP) PO SCH (09:11)
[2018-12-13] MEDS: PANTOPRAZOLE 40 MG TABLET (FP) PO SCH (09:12)
[2018-12-13] MEDS: LOSARTAN POTASSIUM 50 MG TABLET (FP) PO SCH (09:12)
[2018-12-13] MEDS: DOCUSATE SODIUM 100 MG CAPSULE (FP) PO SCH (09:12)
[2018-12-13] MEDS: RIVAROXABAN 20 MG TABLET PO SCH (09:12)
[2018-12-13] MEDS: DULoxetine HCL 30 MG CAPSULE.DR PO SCH (09:12)
[2018-12-13] MEDS ORDERED: LOSARTAN POTASSIUM 50 MG TABLET (FP) PO ONE (09:30)
--- NOTE | 2018-12-13 11:18 | DS ---
Physical Exam: SUBJECTIVE: Patient seen and examined at the bedside. denies chest pain, denies shortness of breath. aware he will be discharged today and will need outpatient close follow up with PCP and cardiology. OBJECTIVE: Patient is a 63 year old male with a past medical history of [place] (September 2018, s/ p stenting at [facility]), CHF, hypertension, atrial fibrillaton (s/p ablation) aortic aneursym and psiorosis. He presents to our ED on 12/05/18 with c/o of cough, congestion and shortness of breath. Patient reports worsening shortness of breath for approximately 5 days. In the ED he was noted to have uncontrolled hypertension, tachycardia with aflutter and has been ruled out for PE with negative CTA. He is currently homeless and lives in a [facility] but will be getting a new apartment on December 30. He has been cleared for discharge today by cardiology. Vital Signs Period Temp Pulse Resp BP Sys/Plummer Pulse Ox Last 24 Hr 97.5 F-98.4 F 83-106 18-20 122-149/85-97 98 PHYSICAL EXAM GENERAL: Awake, alert, and fully oriented, in no acute distress. HEAD: Normal with no signs of trauma. EYES: Pupils equal, round and reactive to light, extraocular movements intact, sclera anicteric, conjunctiva clear. No lid lag. EARS, NOSE, THROAT: Ears normal, nares patent, oropharynx clear without exudates. Moist mucous membranes. NECK: Normal range of motion, supple without lymphadenopathy, JVD, or masses. HEART: controlled heart rate in ABDOMEN: Soft, nontender, not distended, normoactive bowel sounds, no guarding, no rebound, no masses. No hepatomegaly or splenomegaly. MUSCULOSKELETAL: Normal range of motion at all joints. No bony deformities or tenderness. No CVA tenderness. UPPER EXTREMITIES: red raised patches/rash on bilateral arms. hx of psiorosis. LOWER EXTREMITIES: 2+ pulses, warm, well-perfused. No calf tenderness. No peripheral edema. NEUROLOGICAL: Normal speech. Normal gait. PSYCHIATRIC: Cooperative. Good eye contact. Appropriate mood and affect. LABS Laboratory Results - last 24 hr 12/13/18 12/13/18 05:10 05:10 WBC 9.7 RBC 4.83 Hgb 14.5 Hct 43.0 MCV 89.0 MCH 30.0 MCHC 33.7 RDW 15.6 Plt Count 190 MPV 9.3 Absolute Neuts (auto) 7.6 Neutrophils % 78.1 Lymphocytes % 13.6 Monocytes % 6.2 Eosinophils % 1.8 Basophils % 0.3 Nucleated RBC % 0 Sodium 138 Potassium 3.3 L Chloride 101 Carbon Dioxide 31 Anion Gap 6 L BUN 18.5 H Creatinine 1.1 Est GFR (CKD-EPI)AfAm 81.79 Est GFR (CKD-EPI)NonAf 70.57 Random Glucose 133 H Calcium 9.0 Magnesium 1.9 Total Bilirubin 0.4 AST 16 ALT 26 Alkaline Phosphatase 115 Total Protein 6.8 Albumin 3.2 L HOSPITAL COURSE: Date of Admission:12/05/18 Date of Discharge: 12/13/18 Minutes to complete discharge: 60 Discharge Summary Problems reviewed: Yes Reason For Visit: TACHYCARDIA Current Active Problems Atrial flutter (Acute) Atrial flutter by electrocardiogram (Acute) CHF (congestive heart failure) (Acute) Hypokalemia (Acute) Hypothyroid (Acute) Myocardial infarct (Acute) Obesity (Acute) Prophylactic measure (Acute) Sinus tachycardia (Acute) Condition: Improved - Instructions Diet, Activity, Other Instructions: Mr Lundy: You will be discharged home today. You were evaluated by cardiology during your stay here. Please follow up with your PCP at the [facility]. Here are our recommendations for discharge. Hypertension/atrial fibrillation continue these medications. metoprolol XL 200mg once daily Losartan 100mg once per day Amiodarone 200mg twice per day until 12/22/2018, then Amiodorone 200mg ONCE per day. Xarelto 20mg daily Hypothyroidism: Synthroid 25mcgs daily. Take one hour before breakfast. Hyperlipidemia Continue Atorvastatin 80 daily Follow ups: Please be sure to follow up with PCP and hr coordinator. For further cardiac procedures. Follow the complete medication list as outlined in your discharge instructions. Disposition: HOME - Home Medications Comprehensive Discharge Medication List: Ambulatory Orders Aspirin 81 mg PO DAILY 08/01/18 Atorvastatin Ca [Lipitor] 80 mg PO DAILY 08/01/18 Clopidogrel Bisulfate [Clopidogrel] 75 mg PO DAILY 08/01/18 Finasteride 5 mg PO DAILY 08/01/18 Gabapentin 400 mg PO TID 08/01/18 Oxycodone HCl/Acetaminophen [Percocet 5-325 mg Tablet] 1 tab PO Q6H 08/01/18 Pantoprazole Sodium [Protonix] 40 mg PO DAILY 08/01/18 Tamsulosin HCl [Flomax -] 0.4 mg PO DAILY 08/01/18 Cyanocobalamin [Vitamin B12 -] 1,000 mcg PO DAILY #30 tablet 08/05/18 Docusate Sodium [Colace -] 100 mg PO DAILY #30 capsule 08/05/18 Ferrous Sulfate [Feosol] 325 mg PO BID #60 tab 08/05/18 Amiodarone HCl [Cordarone -] 200 mg PO BID #90 tablet 12/13/18 Clopidogrel Bisulfate [Plavix -] 75 mg PO DAILY tablet 12/13/18 Duloxetine HCl [Cymbalta -] 30 mg PO DAILY #60 capsule.dr 12/13/18 Levothyroxine [Synthroid -] 25 mcg PO DAILY@0700 #90 tablet 12/13/18 Losartan Potassium [Cozaar -] 100 mg PO DAILY #90 tablet 12/13/18 Metoprolol Succinate [Toprol XL -] 200 mg PO DAILY #90 tab.sr.24h 12/13/18 Rivaroxaban [Xarelto] 20 mg PO DAILY #90 tablet 12/13/18 Problem List - Problems (1) Acute on chronic diastolic CHF (congestive heart failure) Assessment/Plan: BNP 3000 on admission, treated with IV lasix and will be monitored off lasix on discharge. He is to follow up with Dr. Enriquez (hr coordinator) on d/c. lungs clear to auscultation. stable oxygen on room air. Code(s): I50.33 - ACUTE ON CHRONIC DIASTOLIC (CONGESTIVE) HEART FAILURE (2) Atrial flutter by electrocardiogram Assessment/Plan: per cardiology: Pt remains in AF with RVR, with resting HR approximately 115 bpm , and HR increasing to >130 bpm with mild exertion. Given his hx of recent [place] and mulitple coronary stents, it is important to maintain HR at a lower rate. discontinue dronedarone, and start amiodarone IV, then PO. d/c with close monitoring with EP at [facility] as outpatient if heart rate better controlled. On amiodorone 200mg BID x 2 for a total of 2 weeks, then daily on metoprolol 200mg bid losartan 100mg daily on xarelto 20mg Code(s): I48.92 - UNSPECIFIED ATRIAL FLUTTER (3) BPH (benign prostatic hyperplasia) Assessment/Plan: continue flomax Code(s): N40.0 - BENIGN PROSTATIC HYPERPLASIA WITHOUT LOWER URINRY TRACT SYMP (4) HTN (hypertension) Assessment/Plan: hypertension better controlled on losartan 100mg daily and metoprolol 200mg daily on amiodorne taper for rate control Code(s): I10 - ESSENTIAL (PRIMARY) HYPERTENSION (5) Hyperlipidemia Assessment/Plan: continue home statin Code(s): E78.5 - HYPERLIPIDEMIA, UNSPECIFIED (6) PAD (peripheral artery disease) Assessment/Plan: seen by vascular on last admission, patient to follow up outpatient. Code(s): I73.9 - PERIPHERAL VASCULAR DISEASE, UNSPECIFIED (7) SHANA (acute kidney injury) Code(s): N17.9 - ACUTE KIDNEY FAILURE, UNSPECIFIED (8) Old myocardial infarct Assessment/Plan: outpatient cardiology follow up Code(s): I25.2 - OLD MYOCARDIAL INFARCTION (9) Prophylactic measure Assessment/Plan: fen cardiac diet monitor electrolytes low salt on xarelto Code(s): Z29.9 - ENCOUNTER FOR PROPHYLACTIC MEASURES, UNSPECIFIED This patient is new to me today: No Emergency Visit: Yes ED Registration Date: 12/05/18 Care time: The patient presented to the Emergency Department on the above date and was hospitalized for further evaluation of their emergent condition. Critical Care patient: No - Discharge Referral Referred to [facility] Med [facility] No
--- NOTE | 2018-12-13 12:50 | EKG ---
Test Reason : Blood Pressure : / mmHG Vent. Rate : 110 BPM Atrial Rate : 220 BPM P-R Int : 000 ms QRS Dur : 128 ms QT Int : 418 ms P-R-T Axes : 268 -03 215 degrees QTc Int : 565 ms ATRIAL FLUTTER WITH VARIABLE A-V BLOCK LEFT VENTRICULAR HYPERTROPHY WITH QRS WIDENING CANNOT RULE OUT SEPTAL INFARCT , AGE UNDETERMINED T WAVE ABNORMALITY, CONSIDER LATERAL ISCHEMIA ABNORMAL ECG Confirmed by Brian Cruz MD ([id number]) on 12/13/2018 12:50:05 PM Referred By: Kristie GONZALEZ Confirmed By:Brian Cruz MD
[2018-12-13 15:34] VITALS: BP 140/63; PULSE 109; TEMP 97.9
[2018-12-14] MEDS ORDERED: LOSARTAN POTASSIUM 50 MG TABLET (FP) PO SCH (10:00)
== END 2018-12-13 15:52 | disposition home or self-care (01) | DRG 201 ==
LOC: JER 04:29 → JERBED 13:37 → J4W 17:57 → OBSVTOIN 12-05 12:36 → UNDODISIN 12-05 16:46 → J6S 12-12 17:48 → J4W 12-12 17:49
PROVIDERS: ADMIT Internal Medicine; ATTEND Nurse Practitioner Family
DX: I48.91 Unspecified atrial fibrillation (principal); R94.31 Abnormal electrocardiogram [ECG] [EKG]; N40.0 Benign prostatic hyperplasia without lower urinary tract symptoms; I25.2 Old myocardial infarction; E78.5 Hyperlipidemia, unspecified; I71.9 Aortic aneurysm of unspecified site, without rupture; I25.10 Atherosclerotic heart disease of native coronary artery without angina pectoris; R00.0 Tachycardia, unspecified; D64.9 Anemia, unspecified; K21.9 Gastro-esophageal reflux disease without esophagitis; E87.6 Hypokalemia; E66.9 Obesity, unspecified; N15.9 Renal tubulo-interstitial disease, unspecified; I11.0 Hypertensive heart disease with heart failure; I50.33 Acute on chronic diastolic (congestive) heart failure; Z91.14 Patient's other noncompliance with medication regimen; Z59.0 Homelessness; Z68.32 Body mass index [BMI] 32.0-32.9, adult
CPT/HCPCS: 36415; 71045-TC-FY; 71275-TC; 80048; 80053; 80061; 80307; 82550; 83036; 83721; 83735; 83880; 84100; 84439; 84443; 84484; 85025; 85610; 85730; 93005; 93010; 93306-TC; 99284-25; G0378; J0131; J0282; Q2036; Q9967